=== PATIENT | female | born 1950 | race Two or more races ===

== ENCOUNTER 2020-05-30 15:26 | Outpatient (REF) | payer MEDICARE, SELFPAY ==
--- NOTE | 2020-05-30 | MM_ITS ---
EXAMINATION: MM SCREENING DIGITAL BREAST TOMOSYNTHESIS, BILATERAL CLINICAL INFORMATION: Screening. Asymptomatic. The lifetime risk of breast cancer based on the Tyrer-Cuzick Model is 11%. COMPARISON: Mammography: 04/28/2019, 04/26/2018, 03/12/2017 TECHNIQUE: Digital breast tomosynthesis is performed in both the craniocaudal and mediolateral oblique views along with computer-aided detection (CAD). Synthesized 2D images are generated from the tomosynthesis. FINDINGS: There are scattered areas of fibroglandular density (ACR BI-RADS breast composition Category b). There are no significant masses, abnormal calcifications, or other abnormalities. Fibronodular parenchymal pattern is similar to previous studies. No significant changes. MM/MM tomosynthesis screening BI IMPRESSION: No mammographic evidence of malignancy. ASSESSMENT: BI-RADS 1: Negative RECOMMENDATION: Routine annual mammography screening. This patient's information was entered into a reminder system with a target due date for their next mammogram.
== END 2020-05-30 15:27 | disposition home or self-care (01) ==
LOC: HO.MAMMO 15:26
PROVIDERS: PCP Internal Medicine; Visit Provider Internal Medicine
DX: Z12.31 Encounter for screening mammogram for malignant neoplasm of breast (principal)
CPT/HCPCS: 77063; 77067

== ENCOUNTER 2020-06-21 06:43 | Outpatient (REF) | payer MEDICARE, SELFPAY ==
[2020-06-21 08:25] LABS: Cholesterol 147 mg/dL; HDL Cholesterol 36 mg/dL; LDL Cholesterol Calculated 96 mg/dl; Triglycerides 75 mg/dL
== END 2020-06-21 06:44 | disposition home or self-care (01) ==
LOC: HO.LAB 06:43
PROVIDERS: PCP Internal Medicine; Visit Provider Internal Medicine
DX: I10 Essential (primary) hypertension (principal)
CPT/HCPCS: 80061

== ENCOUNTER → 2020-08-29 13:18 | Outpatient (BNVA) | payer MEDICARE, SELFPAY | PROVIDERS: PCP Internal Medicine; Visit Provider Obstetrics & Gynecology | DX: Z01.419 Encounter for gynecological examination (general) (routine) without abnormal findings (principal); M81.0 Age-related osteoporosis without current pathological fracture | CPT/HCPCS: 99202 ==

== ENCOUNTER → 2020-10-09 14:30 | Outpatient (BNVA) | payer MEDICARE, SELFPAY | PROVIDERS: PCP Internal Medicine; Visit Provider Nurse Practitioner Family ==

== ENCOUNTER 2021-02-18 12:43 | Emergency (ER) | payer MEDICARE, SELFPAY ==
[2021-02-18 12:57] VITALS: BP 114/85; BP 118/91; PULSE 80; PULSE 90; RESP 18; TEMP 36.6; O2SAT 98; BMI 25.7
--- NOTE | 2021-02-18 12:58 | ED.URI ---
HPI - URI/Sore Throat General Chief Complaint: Upper Respiratory Symptoms Stated Complaint: difficulty breathing Time Seen by Provider: 02/18/21 12:57 History of Present Illness HPI Narrative: Patient is 70-year-old female presents today with coughing upper respiratory symptoms. No chest pain no diaphoresis no nausea no vomiting positive congestion. Patient from home. Related Data Previous Rx's Medication Instructions Recorded alendronate 70 mg tablet 70 mg PO QWEEK #12 tab 08/29/20 calcium carbonate 600 mg calcium 1,200 mg PO DAILY #120 tab 08/29/20 (1,500 mg) tablet atorvastatin 10 mg tablet 10 mg PO BEDTIME #90 tab 01/10/21 lisinopril 5 mg tablet 5 mg PO DAILY #90 tab 01/10/21 Allergies Allergy/AdvReac Type Severity Reaction Status Date / Time oxycodone [From PERCOCET] Allergy Unknown ITCHY/RASH Verified 02/18/21 12:57 Review of Systems Review of Systems: Constitutional: No Weight loss, No Fever, No Chills, No Night Sweats, No Fatigue, No Malaise ENT/Mouth: No Hearing loss, No Ear Pain, No Nasal Congestion, No Sinus Pain, No Hoarseness, No sore throat, No Rhinorrhea, No Swallowing Difficulty Eyes: No Eye Pain, No Swelling, No Redness, No Foreign Body, No Discharge, No Vision Changes Cardiovascular: No Chest Pain, No SOB, No Dyspnea on Exertion, No Orthopnea, No Edema, No Palpitations Respiratory: Positive Cough, No Sputum, No Wheezing, No Smoke Exposure, No Dyspnea Gastrointestinal: No Nausea, No Vomiting, No Diarrhea, No Constipation, No abdominal Pain, No Hematochezia, No Melena Genitourinary: no irregular bleeding, No Dysuria, No Urinary Frequency, No Hematuria, No Urinary Incontinence, No Urgency, No Flank Pain, No Urinary Flow Changes, No Hesitancy Musculoskeletal: No joint pain, No Myalgias, No Joint Swelling Skin: No Skin Lesions, No rash Neuro: No Weakness, No Numbness, No Paresthesias, No Loss of Consciousness, No Dizziness, No Headache Psych: No Anxiety/Panic, No Depression, No SI/HI/AH/VH, No Social Issues, Heme/Lymph: No Bruising, No Bleeding,No Lymphadenopathy Endocrine: No Polyuria, No Polydipsia, No Temperature Intolerance PMFSH Past Medical History Medical History Hypertension Osteoporosis Surgical History H/O rectal polypectomy History of breast surgery History of colonoscopy History of surgery Family History Family History Father Colon cancer Mother CVD (cardiovascular disease) Brother Alcoholism Paternal Uncle Stomach cancer Sister Diabetes Kidney failure, acute Social History Social History Household Members: None Housing: Apartment Alcohol intake: never Patient Tobacco Use Status: Former Tobacco user Tobacco use type: Cigarette e-Cigarette/Vaping Use: Never Used Second Hand Smoke Exposure: No Use of substances other than those prescribed or required for medical reasons: No service: No Current occupational status: employed Physical Exam Vital Signs: Vital Signs: Last Vital Signs Temp 97.8 F 02/18/21 12:57 Pulse 80 02/18/21 12:57 Resp 18 02/18/21 12:57 BP 118/91 H 02/18/21 12:57 Pulse Ox 98 02/18/21 12:57 Body Mass Index 25.7 Appearance: Alert. Oriented X3. No acute distress. Eyes: Pupils equal, round and reactive to light. ENT: Pharynx normal. Neck: Normal inspection. Neck supple. No lymph nodes noted. No crepitus CVS: Normal heart rate and rhythm. Pulses normal. Normal S1 and S2 Respiratory: No respiratory distress. Breath sounds normal. No Wheezing. No rales Abdomen: Soft and nontender. No rigidity. No distention. good BS x4 Skin: Skin warm and dry. Normal skin color. Normal skin turgor. Extremities: No lower extremity edema. Neurovascular intact to all extremities. No Lacerations. No Rash Neuro: Oriented X 3. No motor deficit. No sensory deficit. Moving all extermities. No slurred speech MDM - URI/Sore Throat MDM Narrative Medical decision making narrative: Well-appearing not in acute distress. Lungs are clear. O2 sat 98% on room air. Coronavirus test sent. Lab Data Labs: Lab Results 02/18/21 Range/Units 13:01 Coronavirus (PCR) NEGATIVE (Negative) Influenza Type A (PCR) NEGATIVE (Negative) Influenza Type B (PCR) NEGATIVE (Negative) RSV RNA Qual (PCR) NEGATIVE (Negative) Discharge Plan Discharge Clinical Impression: Upper respiratory infection Patient Disposition: Home, Self-Care Instructions: Upper Respiratory Infection (ED), COVID-19 (Coronavirus Disease 2019) (ED) Additional Instructions: Risk of COVID still exists. Please follow strict home quarantine. Prescriptions: No Action atorvastatin 10 mg tablet 10 mg PO BEDTIME Qty: 90 RF: 8 lisinopril 5 mg tablet 5 mg PO DAILY Qty: 90 RF: 8 alendronate 70 mg tablet 70 mg PO QWEEK Qty: 12 RF: 3 calcium carbonate 600 mg calcium (1,500 mg) tablet 1,200 mg PO DAILY Qty: 120 RF: 3 Referrals: Physician,None [Physician] - 2 days
[2021-02-18 13:54] LABS: Influenza A PCR NEGATIVE (Negative); Influenza B PCR NEGATIVE (Negative); Resp Syncy Virus RNA Qual PCR NEGATIVE (Negative); SARS COV2 PCR INHOUSE NEGATIVE (Negative)
[2021-02-18 14:00] VITALS: BP 116/63; PULSE 63; RESP 18; O2SAT 97
== END 2021-02-18 15:29 | disposition home or self-care (01) ==
LOC: HO.ED 14:30
PROVIDERS: Emergency Provider Emergency Medicine Emergency Medical Services; PCP Internal Medicine
DX: J06.9 Acute upper respiratory infection, unspecified (principal); R06.02 Shortness of breath; R05 Cough; Z79.899 Other long term (current) drug therapy; F17.210 Nicotine dependence, cigarettes, uncomplicated; Z71.6 Tobacco abuse counseling; Z20.822 Contact with and (suspected) exposure to COVID-19
CPT/HCPCS: 0241U; 36415; 99283; 99284

== ENCOUNTER 2021-04-01 10:47 | Outpatient (REF) | payer MEDICARE, SELFPAY ==
[2021-04-01 11:49] LABS: MANUAL DIFF FLAG NO
[2021-04-01 11:55] LABS: Basophils Percent Auto 0.5 % (0-2); Eosinophils Absolute Auto 0.1 X10*3/uL (0.0-0.4); Eosinophils Percent Auto 2.2 % (0-4); Hematocrit 44.4 % (37-47); Hemoglobin 14.4 g/dl (12.0-16.0); Imm Gran Abs Auto 0.01 X10*3/uL (0.00-0.03); Imm Gran Pct Auto 0.2 % (0.0-0.4); Lymphocytes Absolute Auto 1.5 X10*3/uL (1.2-4.9); Lymphocytes Percent Auto 26.3 % (20-40); Mean Corpuscular HGB Conc 32.4 g/dl (31.0-35.0); Mean Corpuscular Hemoglobin 31.1 pg (27.0-33.0); Mean Corpuscular Volume 95.9 fL (80-98); Mean Platelet Volume 10.8 fL (9.4-12.3); Monocytes Absolute Auto 0.5 X10*3/uL (0.1-1.2); Monocytes Percent Auto 8.7 % (2-11); Neutrophils Absolute Auto 3.4 X10*3/uL (2.0-8.3); Neutrophils Percent Auto 62.1 % (45-73); Platelet Count 275 X10*3/uL (160-400); Red Blood Count 4.63 X10*6/uL (4.20-5.50); Red Cell Distribution Width 12.3 % (11.0-16.0); White Blood Count 5.5 X10*3/uL (4.8-10.8)
[2021-04-01 14:11] LABS: Alanine Aminotransferase 21 U/L (0-31); Albumin Level 4.1 g/dL (3.5-5.0); Alkaline Phosphatase 83 U/L (39-117); Anion Gap 11 (12-20); Aspartate Amino Transferase 23 U/L (5-31); Bilirubin Total 0.6 mg/dL (0.0-1.0); Blood Urea Nitrogen 10 mg/dL (9-16); Calcium 9.7 mg/dL (8.4-10.2); Carbon Dioxide 28 mmol/L (22-29); Chloride 104 mmol/L (96-108); Cholesterol 152 mg/dL; Estimated Glomerular Filt Rate > 60; Glucose Fasting 129 mg/dL (60-99); HDL Cholesterol 30 mg/dL; LDL Cholesterol Calculated 99 mg/dl; Potassium 4.7 mmol/L (3.3-5.1); Sodium 138 mmol/L (135-145); Triglycerides 119 mg/dL
[2021-04-01 14:34] LABS: Thyroid Stimulating Hormone 1.31 uIU/mL (0.32-4.0)
== END 2021-04-01 10:48 | disposition home or self-care (01) ==
LOC: HO.LAB 10:47
PROVIDERS: PCP Internal Medicine; Visit Provider Internal Medicine
DX: Z00.00 Encounter for general adult medical examination without abnormal findings (principal); E11.9 Type 2 diabetes mellitus without complications; E03.9 Hypothyroidism, unspecified
CPT/HCPCS: 36415; 80053; 80061; 84443; 85025

== ENCOUNTER 2021-06-05 06:40 | Outpatient (REF) | payer MEDICARE, SELFPAY ==
[2021-06-05 07:45] LABS: Cholesterol 139 mg/dL; HDL Cholesterol 29 mg/dL; LDL Cholesterol Calculated 86 mg/dl; Triglycerides 120 mg/dL
== END 2021-06-05 06:41 | disposition home or self-care (01) ==
LOC: HO.LAB 06:40
PROVIDERS: PCP Internal Medicine; Visit Provider Internal Medicine
DX: E11.9 Type 2 diabetes mellitus without complications (principal)
CPT/HCPCS: 36415; 80061

== ENCOUNTER 2021-08-07 13:11 | Outpatient (REF) | payer MEDICARE, SELFPAY ==
--- NOTE | ~2021-08-07 | MM_ITS ---
EXAMINATION: BONE DENSITOMETRY CLINICAL INDICATION: Asymptomatic menopausal state. COMPARISON: Baseline BD dated 04/28/2019. TECHNIQUE: Using a [employer] DXA System (software version: 13.1) manufactured by [employer], dual-energy x-ray absorptiometry was performed of the lumbar spine and left hip. The images are of good technical quality. Summary results are attached. FINDINGS: AP SPINE L1-L2 (excluding L3 and L4): The data of L1-L4 has been changed to exclude the L3 and L4 vertebral bodies, because degenerative sclerosis at these levels may cause overestimation of lumbar spine density. Current: BMD 0.786 g/cm2, Z-score -1.4, T-score -3.2, osteoporosis, 9.5% increase from baseline (<5% change is not significant). Baseline: BMD 0.718 g/cm2. LEFT FEMUR, NECK: Current: BMD 0.696 g/cm2, Z-score -0.8, T-score -2.5, osteoporosis. Baseline: BMD 0.648 g/cm2. LEFT FEMUR, TOTAL: Current: BMD 0.779 g/cm2, Z-score -0.4, T-score -1.8, osteopenia, 13.2% increase from baseline (<5% change is not significant). Baseline: BMD 0.688 g/cm2. IDENTIFIED RISK FACTORS: Early menopause, secondary osteoporosis. HISTORY OF FRACTURE: None listed. MEDICATIONS: Calcium supplements or multivitamin, vitamin D. MM/XR DEXA axial skeleton IMPRESSION: 1. DIAGNOSIS: Osteoporosis based on the lowest T-score value of -3.2 in the lumbar spine applying World Health Organization criteria. 2. 10-YEAR FRACTURE RISK PREDICTION, FRAX: Major osteoporotic fracture (clinical spine, forearm, hip or shoulder) 8.1%. Hip fracture 1.9%. 3. Treatment Recommendations: NOF guidelines recommend consideration for treatment in postmenopausal women and men age 50 and older presenting with the following: -A hip or vertebral (clinical or morphometric) fracture. -T-score less than or equal to -2.5 at the femoral neck or spine after appropriate evaluation to exclude secondary causes. -Low bone mass at the hip or spine and a 10-year fracture probability by FRAX of greater than or equal to 3% for hip fracture or greater than or equal to 20% for major osteoporotic fracture based on the [place] adapted WHO algorithm. 4. Other Recommendations: All treatment decisions require clinical judgment and consideration of individual patient factors, including patient preferences, comorbidities, previous drug use, risk factors not captured in the FRAX model (e.g. frailty, falls, vitamin D deficiency, increased bone turnover, interval significant decline in bone density) and possible under or overestimation of fracture risk by FRAX. Additional medical evaluation for secondary cause of low bone mineral density may be appropriate. FUTURE SCAN RECOMMENDATION: People with diagnosed cases of osteoporosis or at high risk for fracture should have regular bone mineral density tests. For patients eligible for Medicare, routine testing is allowed once every 2 years. The testing frequency can be increased to one year for patients who have rapidly progressing disease, those who are receiving or discontinuing medical therapy to restore bone mass, or have additional risk factors.
--- NOTE | ~2021-08-07 | MM_ITS ---
EXAMINATION: MM SCREENING DIGITAL BREAST TOMOSYNTHESIS, BILATERAL CLINICAL INFORMATION: Screening. Asymptomatic. The lifetime risk of breast cancer based on the Tyrer-Cuzick Model is 4%. COMPARISON: Mammography: 05/30/2020, 04/28/2019, 04/26/2018 TECHNIQUE: Digital breast tomosynthesis is performed in both the craniocaudal and mediolateral oblique views along with computer-aided detection (CAD). Synthesized 2D images are generated from the tomosynthesis. FINDINGS: There are scattered areas of fibroglandular density (ACR BI-RADS breast composition Category b). There are no significant masses, abnormal calcifications, or other abnormalities. Fibronodular parenchymal pattern is similar to prior exams. There is no developing density or interval mass or architectural abnormality. The axilla and skin contours are unremarkable. No significant changes from prior studies. MM/MM tomosynthesis screening BI IMPRESSION: No mammographic evidence of malignancy. ASSESSMENT: BI-RADS 2: Benign RECOMMENDATION: Routine annual mammography screening. This patient's information was entered into a reminder system with a target due date for their next mammogram.
== END 2021-08-07 13:12 | disposition home or self-care (01) ==
LOC: HO.MAMMO 13:11
PROVIDERS: Visit Provider Internal Medicine
DX: Z12.31 Encounter for screening mammogram for malignant neoplasm of breast (principal); Z13.820 Encounter for screening for osteoporosis; Z78.0 Asymptomatic menopausal state
CPT/HCPCS: 77063; 77067; 77080

== ENCOUNTER 2021-08-15 09:19 | Emergency (ER) | payer MEDICARE, SELFPAY ==
--- NOTE | ~2021-08-15 | XR_ITS ---
EXAMINATION: XR KNEE, LEFT CLINICAL INFORMATION: Pain COMPARISON: None TECHNIQUE: Four views of the left knee. FINDINGS: There is no evidence of acute fracture or dislocation of the left knee. No effusion is noted. There are some subcutaneous calcifications present anterior and superior to the patella. No joint space narrowing is seen. There is either post traumatic change involving the proximal left fibula versus possible osteochondroma. There appears be some subcutaneous edema at and below the tibial tubercle. XR/XR knee LT 4V IMPRESSION: No significant bony abnormality of the left knee identified. Either posttraumatic change of the proximal fibula versus possible osteochondroma. Some subcutaneous edematous change about the anterior tibia.
[2021-08-15 09:19] VITALS: BP 131/87; PULSE 2; RESP 18; TEMP 36; O2SAT 95; BMI 25.2
--- NOTE | 2021-08-15 10:28 | ED_ITS ---
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 Patient denies any injury or trauma. Pain is worsened with weight-bearing. There is no associated weakness, numbness, tingling, swelling, redness or warmth. No fevers or chills. Related Data Previous Rx's Medication Instructions Recorded alendronate 70 mg tablet 70 mg PO QWEEK #12 tab 08/29/20 calcium carbonate 600 mg calcium 1,200 mg PO DAILY #120 tab 08/29/20 (1,500 mg) tablet atorvastatin 10 mg tablet 10 mg PO BEDTIME #90 tab 05/06/21 lisinopril 5 mg tablet 5 mg PO DAILY #90 tab 05/13/21 naproxen 500 mg tablet 500 mg PO BID PRN #20 tab 08/15/21 Allergies Allergy/AdvReac Type Severity Reaction Status Date / Time oxycodone [From Allergy Unknown ITCHY/RASH Verified 06/12/21 15:14 PERCOCET] Review of Systems Verdana 4l Review of Systems: Yes all other systems are reviewed and Verdana 4d are negative Verdana 4l Constitutional: Verdana 4d Constitutional: Verdana 4d Verdana 4d Reports no additional constitutional complaints, Denies body ache(s), Denies chills, Denies fever(s), Denies headache(s) and Denies weakness Verdana 4l Eyes: Verdana 4d Verdana 4d Eyes: Verdana 4d Reports no additional eye complaints and Denies change in vision Verdana 4l ENT: Verdana 4d Reports system reviewed and no additional complaints, except as documented, Denies dizziness, Denies headache(s), Denies nasal congestion, Denies nasal discharge and Denies neck pain Verdana 4l Cardiovascular: Verdana 4d Cardiovascular: Verdana 4d Verdana 4d Reports no additional cardiovascular complaints, Denies chest pain, Denies leg edema and Denies dyspnea Verdana 4l Respiratory: Verdana 4d Verdana 4d Respiratory: Verdana 4d Reports no additional respiratory complaints, Denies cough and Denies dyspnea Verdana 4l Gastrointestinal: Verdana 4d Gastrointestinal: Verdana 4d Verdana 4d Reports no additional gastrointestinal complaints, Denies abdominal pain, Denies diarrhea, Denies nausea and Denies vomiting Verdana 4l Genitourinary: Verdana 4d Verdana 4d Genitourinary: Verdana 4d Reports no additional female genitourinary complaints and Denies urinary incontinence Verdana 4l Musculoskeletal: Verdana 4d Musculoskeletal: Verdana 4d Verdana 4d Reports no additional musculoskeletal complaints, Denies back pain, Reports arthralgias, Denies joint swelling, Denies neck pain, Denies numbness and Denies tingling Verdana 4l Integumentary/Breasts: Verdana 4d Skin/Breast: Verdana 4d Verdana 4d Reports system reviewed and no additional complaints, except as docu and Denies rash Verdana 4l Neurologic: Verdana 4d Reports system reviewed and no additional complaints, except as documented, Denies Abnormal speech present, Denies dizziness, Denies headache(s), Denies numbness, Denies tingling and Denies weakness PMFSH Past Medical History Attestation statement: The following information was validated with the patient. Source: old records reviewed and nursing notes reviewed Medical History Hyperlipidemia Hypertension Osteoporosis Surgical History H/O rectal polypectomy History of breast surgery History of colonoscopy History of surgery Family History Family History Father Colon cancer Mother CVD (cardiovascular disease) Brother Alcoholism Paternal Uncle Stomach cancer Sister Diabetes Kidney failure, acute Social History Social History Household Members: None Housing: Apartment Alcohol intake: never Patient Tobacco Use Status: Former Tobacco user Tobacco use type: Cigarette e-Cigarette/Vaping Use: Never Used Second Hand Smoke Exposure: No Advance Directives: No Advance Directives Information Provided: No service: No Current occupational status: employed Physical Exam Verdana 4l Vital Signs: Verdana 4d Verdana 4d Vital Signs: Verdana 4d Verdana 4Bd Last Vital Signs Verdana 4d 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 4d 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 4d Temp 96.8 F 08/15/21 09:19 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 4d Pulse 2 L 08/15/21 09:19 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 4d Resp 18 08/15/21 09:19 BP 131/87 08/15/21 09:19 Pulse Ox 95 08/15/21 09:19 BMI result Body Mass Index 25.2 Const: General: cooperative, healthy appearing, comfortable and no acute distress Orientation/consciousness: patient oriented x3 Limitations: no limitations HENMT: Head: Yes normal to inspection Ears: hearing grossly normal bilaterally General nose exam: Normal external nose present Face and sinus: Yes normal facial exam Mouth: Normal oral and palatal mucosa present Throat: Yes posterior oropharynx normal Eyes: General: appearance normal, both eyes and all related structures Pupils: Equal, round and reactive pupils present Neck: Neck: Yes normal visual inspection Chest: Chest palpation & inspection: normal inspection of the chest Resp: Effort & Inspection: normal respiratory effort Auscultation: clear to auscultation bilaterally Cardio: Rate: regular rate Rhythm: regular rhythm Peripheral pulses: Peripheral pulses 2+ throughout GI: Inspection: Yes normal to inspection Palpation (GI): Soft to palpation and nontender Auscultation: normal bowel sounds Back/Spine/Pelvis: Thoracic/Lumbar Spine: thoracic and lumbar spine normal to inspection Skin: General skin exam: no rashes or lesions noted Neuro: General: patient oriented x3, no focal motor deficits and normal sensation to monofilament Cranial nerves: Yes Equal, round and reactive pupils present Cognition (Neuro): normal cognition Speech: No Abnormal speech present Gait exam (Neuro): Normal gait present Motor exam (neuro): 5/5 motor strength present throughout Extrem: Other: To the left anterior knee there is swelling that is mild with tenderness over the anterior medial aspect. There is full range of motion of the joint. There is no ligamental laxity. There is no warmth or redness. General: Yes normal to inspection Course Course Course Narrative: 70-year-old female here with atraumatic left knee pain over the last 2 weeks. On exam the patient has some mild swelling and tenderness over the anterior medial aspect of the knee with full range of motion and the ligamental laxity or redness or warmth. X-ray show no significant bony abnormality. There is either posttraumatic changes of the proximal fibula versus a osteochondroma. There is some subcu edema around the anterior tibia. There is also some calcifications present in the anterior and superior patella. Will treat with Rahat wrap, rice, low-dose NSAID, follow-up with Orthopedics in 1 week for persistent symptoms. Reviewed worrisome signs and symptoms of when to return to the emergency department. Comfortable discharge home. MDM - Extremity Injury (Lower) MDM Narrative Medical decision making narrative: Osteoarthritis, fracture, sprain, septic joint Medical Records Attestation: I reviewed the patient's medical records. Lab Data Attestation: I reviewed the patient's lab results. Imaging Data knee x-ray: Attestation: I personally reviewed and interpreted this imaging study as follows: Radiologist's impression: FINDINGS: There is no evidence of acute fracture or dislocation of the left knee. No effusion is noted. There are some subcutaneous calcifications present anterior and superior to the patella. No joint space narrowing is seen. There is either post traumatic change involving the proximal left fibula versus possible osteochondroma. There appears be some subcutaneous edema at and below the tibial tubercle. XR/XR knee LT 4V IMPRESSION: No significant bony abnormality of the left knee identified. ? Either posttraumatic change of the proximal fibula versus possible osteochondroma. ? Some subcutaneous edematous change about the anterior tibia. ? Discharge Plan Discharge Clinical Impression: Acute knee pain Patient Disposition: Home, Self-Care Instructions: Knee Pain (ED) Additional Instructions: Use Rahat wrap for comfort Rest, Ice, elevate and limit weight-bearing for several days Use the anti-inflammatory to help with pain For persistent pain greater than 1 week follow-up with Orthopedics Prescriptions: New naproxen 500 mg tablet 500 mg PO BID PRN (Reason: pain) Qty: 20 0RF No Action atorvastatin 10 mg tablet 10 mg PO BEDTIME Qty: 90 8RF lisinopril 5 mg tablet 5 mg PO DAILY Qty: 90 8RF alendronate 70 mg tablet 70 mg PO QWEEK Qty: 12 3RF calcium carbonate 600 mg calcium (1,500 mg) tablet 1,200 mg PO DAILY Qty: 120 3RF Referrals: Jeff Galvan MD [Physician] - 1 week Stand Alone Forms: Work/School Release
== END 2021-08-15 11:04 | disposition home or self-care (01) ==
PROVIDERS: Emergency Provider Emergency Medicine; PCP Internal Medicine
DX: M25.562 Pain in left knee (principal)
CPT/HCPCS: 73564; 99283

== ENCOUNTER → 2021-09-03 13:15 | Outpatient (BNVA) | payer MEDICARE, SELFPAY | PROVIDERS: Visit Provider Obstetrics & Gynecology | DX: Z13.89 Encounter for screening for other disorder (principal) ==

== ENCOUNTER 2022-05-26 07:41 | Outpatient (REF) | payer MEDICARE, SELFPAY ==
[2022-05-26 08:00] LABS: MANUAL DIFF FLAG NO
[2022-05-26 08:35] LABS: Basophils Percent Auto 0.7 % (0-2); Eosinophils Absolute Auto 0.2 X10*3/uL (0.0-0.4); Eosinophils Percent Auto 3.2 % (0-4); Hematocrit 44.4 % (37.0-47.0); Hemoglobin 14.6 g/dl (12.0-16.0); Imm Gran Abs Auto 0.01 X10*3/uL (0.00-0.03); Imm Gran Pct Auto 0.2 % (0.0-0.4); Lymphocytes Absolute Auto 1.4 X10*3/uL (1.2-4.9); Lymphocytes Percent Auto 22.7 % (20-40); Mean Corpuscular HGB Conc 32.9 g/dl (31.0-35.0); Mean Corpuscular Hemoglobin 31.2 pg (27.0-33.0); Mean Corpuscular Volume 94.9 fL (80.0-98.0); Mean Platelet Volume 10.5 fL (9.4-12.3); Monocytes Absolute Auto 0.5 X10*3/uL (0.1-1.2); Monocytes Percent Auto 8.8 % (2-11); Neutrophils Absolute Auto 3.9 x10*3/uL (2.0-8.3); Neutrophils Percent Auto 64.4 % (45-73); Platelet Count 282 X10*3/uL (160-400); Red Blood Count 4.68 X10*6/uL (4.20-5.50); Red Cell Distribution Width 12.2 % (11.0-16.0)
[2022-05-26 10:13] LABS: Alanine Aminotransferase 32 U/L (0-31); Albumin Level 4.3 g/dL (3.5-5.0); Alkaline Phosphatase 92 U/L (39-117); Anion Gap 12 (12-20); Aspartate Amino Transferase 30 U/L (5-31); Bilirubin Total 0.9 mg/dL (0.0-1.0); Blood Urea Nitrogen 12 mg/dL (9-16); Calcium 10.1 mg/dL (8.4-10.2); Carbon Dioxide 28 mmol/L (22-29); Chloride 105 mmol/L (96-108); Cholesterol 121 mg/dL; Estimated Glomerular Filt Rate > 60; Glucose Fasting 135 mg/dL (60-99); HDL Cholesterol 28 mg/dL; LDL Cholesterol Calculated 77 mg/dl; Potassium 5.1 mmol/L (3.3-5.1); Sodium 140 mmol/L (135-145); Total Protein 7.3 g/dL (6.5-8.0); Triglycerides 82 mg/dL
== END 2022-05-26 07:42 | disposition home or self-care (01) ==
LOC: HO.LAB 07:41
PROVIDERS: PCP Internal Medicine; Visit Provider Internal Medicine
DX: Z13.0 Encounter for screening for diseases of the blood and blood-forming organs and certain disorders involving the immune mechanism (principal); E78.5 Hyperlipidemia, unspecified; I10 Essential (primary) hypertension
CPT/HCPCS: 36415; 80053; 80061; 85025

== ENCOUNTER 2022-06-19 10:20 | Outpatient (REF) | payer MEDICARE, SELFPAY ==
--- NOTE | ~2022-06-19 | XR_ITS ---
EXAMINATION: XR FOOT, LEFT CLINICAL INFORMATION: Pain COMPARISON: None TECHNIQUE: AP, lateral, and oblique views of the left foot. FINDINGS: No fracture or dislocation. Alignment maintained. Joint spaces are maintained. Mild hammertoe appearance of the second digit. Mild hallux valgus. Soft tissue swelling overlies the medial aspect of the forefoot. There is mild hypertrophic spurring at the plantar aponeurosis to the calcaneus. XR/XR foot LT 2V IMPRESSION: Soft tissue swelling of the medial forefoot. No acute osseous abnormality. Plantar heel spur.
== END 2022-06-19 10:21 | disposition home or self-care (01) ==
LOC: HO.XRAY 10:20
PROVIDERS: PCP Internal Medicine; Visit Provider Internal Medicine
DX: M79.672 Pain in left foot (principal)
CPT/HCPCS: 73620

== ENCOUNTER 2022-08-11 12:55 | Outpatient (REF) | payer MEDICARE, SELFPAY ==
--- NOTE | ~2022-08-11 | MM_ITS ---
EXAMINATION: MM SCREENING DIGITAL BREAST TOMOSYNTHESIS, BILATERAL CLINICAL INFORMATION: Screening. Asymptomatic. The lifetime risk of breast cancer based on the Tyrer-Cuzick Model is 4%. COMPARISON: Mammography: 08/07/2021, 05/30/2020, 04/28/2019 TECHNIQUE: Digital breast tomosynthesis is performed in both the craniocaudal and mediolateral oblique views along with computer-aided detection (CAD). Synthesized 2D images are generated from the tomosynthesis. FINDINGS: There are scattered areas of fibroglandular density (ACR BI-RADS breast composition Category b). No architectural abnormality or developing density or significant change from prior studies. Fibronodular pattern is similar to prior studies. There are no significant masses, abnormal calcifications, or other abnormalities. MM/MM tomosynthesis screening BI IMPRESSION: No mammographic evidence of malignancy. ASSESSMENT: BI-RADS 2: Benign RECOMMENDATION: Routine annual mammography screening. This patient's information was entered into a reminder system with a target due date for their next mammogram.
== END 2022-08-11 12:56 | disposition home or self-care (01) ==
LOC: HO.MAMMO 12:55
PROVIDERS: PCP Internal Medicine; Visit Provider Internal Medicine
DX: Z12.31 Encounter for screening mammogram for malignant neoplasm of breast (principal)
CPT/HCPCS: 77063; 77067

== ENCOUNTER 2022-10-20 15:06 | Emergency (ER) | payer MEDICARE, SELFPAY ==
--- NOTE | ~2022-10-20 | CT_ITS ---
EXAMINATION: CT ABDOMEN AND PELVIS WITHOUT CONTRAST CLINICAL INFORMATION: Lower abdominal pain and hematuria COMPARISON: None available. TECHNIQUE: Multidetector volumetric imaging was performed from the superior aspect of the liver through the pubic symphysis. Sagittal and coronal reformatted images were obtained on the technologist's workstation. This CT examination was performed using dose optimization techniques as appropriate, variously including the following: *Automated exposure control *Adjustment of mA and/or kV according to patient size (this includes techniques or standardized protocols for targeted exams where dose is matched to indication/reason for exam; i.e. extremities or head) *Use of iterative reconstruction technique DLP: 418 mGy-cm FINDINGS: LUNG BASES: The visualized lung bases are unremarkable. LIVER, GALLBLADDER, AND BILIARY TREE: The liver is normal in size, shape, and attenuation. No focal hepatic lesion or biliary ductal dilatation is present. The gallbladder is unremarkable with no evidence of radiopaque gallstones, gallbladder wall thickening, or obvious pericholecystic inflammatory changes. PANCREAS: Unremarkable. SPLEEN: Unremarkable. ADRENAL GLANDS: Unremarkable. KIDNEYS AND URETERS: The kidneys are normal in size, shape, and attenuation. No hydronephrosis, hydroureter, or calculi seen. No perinephric stranding. BLADDER: There are small calcifications in the pelvis adjacent to the bladder wall. No definite stone is seen. GASTROINTESTINAL TRACT: Stool throughout the colon questionable for constipation. The small and large bowel are otherwise unremarkable. The appendix is unremarkable. ABDOMINAL WALL: Small umbilical hernia. LYMPH NODES: Normal. VASCULAR: Atherosclerotic disease. No aneurysm. PELVIC VISCERA: Unremarkable. OSSEOUS STRUCTURES: There is curvature of the lumbar spine to the left and degenerative change. CT/CT abdomen pelvis wo IV con IMPRESSION: No stone or hydronephrosis seen. Stool throughout the colon questionable for constipation. Fleischner guidelines were followed.
[2022-10-20 15:23] VITALS: BP 146/81; PULSE 84; RESP 14; TEMP 36.9; O2SAT 96; BMI 20.6
--- NOTE | 2022-10-20 15:30 | ED_ITS ---
HPI - Female Genitourinary General Chief complaint: Urogenital-Female <SHAY Calabrese - Last Filed: 10/20/22 20:40> Stated complaint: ? uti <SHAY Calabrese - Last Filed: 10/20/22 20:40> Time Seen by Provider: 10/20/22 17:44 <HSAY Calabrese - Last Filed: 10/20/22 20:40> Source: patient, RN notes reviewed, old records reviewed and japanese interpreter <William Leija - Last Filed: 10/20/22 18:08> Mode of arrival: ambulatory <William Leija - Last Filed: 10/20/22 18:08> Limitations: language barrier <William Leija - Last Filed: 10/20/22 18:08> History of Present Illness HPI Narrative: 71-year-old female of burning with urination She reports that her symptoms started 2 days ago. She also complains of left flank pain and urinary frequency Denies any fevers or chills. Her pain is mild, 10/20 She also noticed some blood within her urine <William Leija - Last Filed: 10/20/22 18:08> Related Data Home medications: Previous Rx's Medication Instructions Recorded alendronate 70 mg tablet 70 mg PO QWEEK #12 tabs 10/16/22 atorvastatin 10 mg tablet 10 mg PO BEDTIME #90 tabs 10/16/22 calcium carbonate 600 mg calcium 1,200 mg PO DAILY #120 tabs 10/16/22 (1,500 mg) tablet lisinopril 5 mg tablet 5 mg PO DAILY #90 tabs 10/16/22 naproxen 500 mg tablet 500 mg PO BID PRN pain #20 tabs 10/16/22 nitrofurantoin 100 mg PO Q12H 3 days #6 caps 10/20/22 monohydrate/macrocrystals 100 mg capsule (Macrobid) <SHAY Calabrese - Last Filed: 10/20/22 20:40> Allergies/Adverse reactions: Allergies Allergy/AdvReac Type Severity Reaction Status Date / Time oxycodone [From PERCOCET] Allergy Unknown ITCHY/RASH Verified 10/16/22 14:10 <SHAY Calabrese - Last Filed: 10/20/22 20:40> Review of Systems Constitutional: Constitutional: Reports as per HPI, Denies chills, Denies fatigue, Denies fever(s) and Denies headache(s) <William Leija - Last Filed: 10/20/22 18:08> ENT: Denies headache(s) <William Leija - Last Filed: 10/20/22 18:08> Cardiovascular: Cardiovascular: Denies chest pain and Denies dyspnea <William Leija - Last Filed: 10/20/22 18:08> Respiratory: Respiratory: Denies cough and Denies dyspnea <William Leija - Last Filed: 10/20/22 18:08> Gastrointestinal: Gastrointestinal: Denies constipation and Denies vomiting <William Leija - Last Filed: 10/20/22 18:08> Neurologic: Denies headache(s) and Denies focal weakness <William Leija - Last Filed: 10/20/22 18:08> Endocrine: Endocrine: Denies fatigue <William Leija - Last Filed: 10/20/22 18:08> FOR[facility], LATER [facility] Past Medical History Medical History: Medical History Hyperlipidemia Hypertension Osteoporosis <SHAY Calabrese - Last Filed: 10/20/22 20:40> Surgical History: Surgical History H/O rectal polypectomy History of breast surgery History of colonoscopy History of surgery <SHAY Calabrese - Last Filed: 10/20/22 20:40> Family History Family History: Family History Father Colon cancer Mother CVD (cardiovascular disease) Brother Alcoholism Paternal Uncle Stomach cancer Sister Diabetes Kidney failure, acute <SHAY Calabrese - Last Filed: 10/20/22 20:40> Social History Social History: Social History Household Members: None Housing: Apartment Alcohol intake: never Patient Tobacco Use Status: Former Tobacco user Tobacco use type: Cigarette Smoked in Last 30 Days: No e-Cigarette/Vaping Use: Never Used Second Hand Smoke Exposure: No Use of substances other than those prescribed or required for medical reasons: No Advance Directives: No Advance Directives Information Provided: No service: No Current occupational status: employed Current occupational exposures/hazards: No Cognitive needs: No Hearing needs: No Vision needs: Yes <SHAY Calabrese - Last Filed: 10/20/22 20:40> Physical Exam Vital Signs: Vital Signs: Last Vital Signs Temp 97.0 F 10/20/22 17:56 Pulse 65 10/20/22 17:56 Resp 16 10/20/22 17:56 BP 131/70 10/20/22 17:56 Pulse Ox 97 10/20/22 17:56 O2 Del Method Room Air 10/20/22 17:56 BMI result Body Mass Index 20.6 <SHAY Calabrese - Last Filed: 10/20/22 20:40> Vital Signs: Last Vital Signs Temp 97.0 F 10/20/22 17:56 Pulse 65 10/20/22 17:56 Resp 16 10/20/22 17:56 BP 131/70 10/20/22 17:56 Pulse Ox 97 10/20/22 17:56 O2 Del Method Room Air 10/20/22 17:56 BMI result Body Mass Index 20.6 <William Leija - Last Filed: 10/20/22 18:08> Const: General: healthy appearing, comfortable, no acute distress, alert and awake <William Leija - Last Filed: 10/20/22 18:08> Nutritional Appearance: well nourished <William Leija - Last Filed: 10/20/22 18:08> Orientation/consciousness: patient oriented x3 <William Leija - Last Filed: 10/20/22 18:08> HEENT: Head: Yes normocephalic and Yes atraumatic <William Leija - Last Filed: 10/20/22 18:08> Throat: Yes posterior oropharynx normal <William Leija - Last Filed: 10/20/22 18:08> Eyes: Eyelids: Yes eyelids normal <William Leija - Last Filed: 10/20/22 18:08> Conjunctivae: conjunctivae normal <William Leija - Last Filed: 10/20/22 18:08> Sclerae: sclerae normal < - Last Filed: 10/20/22 18:08> Corneas: corneas normal < Last Filed: 10/20/22 18:08> Pupils: Equal, round and reactive pupils present < Last Filed: 10/20/22 18:08> EOM: EOMs intact bilaterally < Last Filed: 10/20/22 18:08> Neck: Neck: Yes full ROM < Last Filed: 10/20/22 18:08> Resp: Effort & Inspection: normal respiratory effort, able to speak in complete sentences, no audible wheezes and not labored < Last Filed: 10/20/22 18:08> Auscultation: clear to auscultation bilaterally < Last Filed: 10/20/22 18:08> Cardio: Rate: regular rate < Last Filed: 10/20/22 18:08> Rhythm: regular rhythm < Last Filed: 10/20/22 18:08> GI: Inspection: No distended < Last Filed: 10/20/22 18:08> Palpation (GI): Soft to palpation, not firm, nontender, no guarding and not rigid < - Last Filed: 10/20/22 18:08> Auscultation: normoactive bowel sounds < Last Filed: 10/20/22 18:08> : General: Yes no CVA tenderness < - Last Filed: 10/20/22 18:08> Back/Spine/Pelvis: Back: no CVA tenderness < Last Filed: 10/20/22 18:08> Skin: General skin exam: no rashes or lesions noted and elasticity normal < - Last Filed: 10/20/22 18:08> Neuro: General: patient oriented x3 < - Last Filed: 10/20/22 18:08> Cranial nerves: Yes Equal, round and reactive pupils present and Yes Bilaterally intact EOM present <William Leija - Last Filed: 10/20/22 18:08> Cognition (Neuro): normal cognition <William Leija - Last Filed: 10/20/22 18:08> Course Course Course Narrative: RMEL 71 yold female presents to the ED for slight hematuria and lower back pain. labs, and Abdominal CT scan ordered <SHAY Calabrese - Last Filed: 10/20/22 20:40> Medical Decision Making Medical Decision Making MDM Narrative: 71-year-old female for evaluation of clinical UTI symptoms. Labs are unre markable and CT abdomen and pelvis does not show any significant findings except for constipation. UA has numerous white cels with leukocyte esterase and red cells. Consistent with UTI. We will treat with macrobid BID x 5 days. Patient instructed to follow up with urology if her symptoms do not resolve after antibiotic therapy <William Leija - Last Filed: 10/20/22 18:08> Differential Diagnosis UTI Cystitis Obstructive uropathy Pyelnophritis Bladder mass <William Leija - Last Filed: 10/20/22 18:08> Lab Data Result Diagrams: 10/20/22 15:39 10/20/22 15:39 <SHAY Calabrese - Last Filed: 10/20/22 20:40> Labs: Lab Results 10/20/22 10/20/22 10/20/22 Range/Units 15:39 15:39 15:42 WBC 7.4 (4.8-10.8) X10*3/uL RBC 4.59 (4.20-5.50) X10*6/uL Hgb 14.4 (12.0-16.0) g/dl Hct 43.5 (37.0-47.0) % MCV 94.8 (80.0-98.0) fL MCH 31.4 (27.0-33.0) pg MCHC 33.1 (31.0-35.0) g/dl RDW 12.4 (11.0-16.0) % Plt Count 287 (160-400) X10*3/uL MPV 10.4 (9.4-12.3) fL Immature Gran % (Auto) 0.3 (0.0-0.4) % Neut % (Auto) 63.7 (45-73) % Lymph % (Auto) 25.1 (20-40) % [place] % (Auto) 8.4 (2-11) % Eos % (Auto) 2.0 (0-4) % Baso % (Auto) 0.5 (0-2) % Lymph # (Auto) 1.9 (1.2-4.9) X10*3/uL [place] # (Auto) 0.6 (0.1-1.2) X10*3/uL Eos # (Auto) 0.2 (0.0-0.4) X10*3/uL Baso # (Auto) 0.0 (0.0-0.2) X10*3/uL Abs Immat Gran (auto) 0.02 (0.00-0.03) X10*3/uL Absolute Neuts (auto) 4.7 (2.0-8.3) x10*3/uL Absolute Nucleated RBC 0.000 (0.0-0.012) X10*3/uL Nucleated RBC % (auto) 0.0 (0.0-0.2) /100WBC Sodium 142 (135-145) mmol/L Potassium 4.8 (3.3-5.1) mmol/L Chloride 106 (96-108) mmol/L Carbon Dioxide 29 (22-29) mmol/L Anion Gap 12 (12-20) BUN 10 (9-16) mg/dL Creatinine 0.77 (0.5-1.4) mg/dL Estim Creat Clear Calc 54.5 Estimated GFR > 60 Random Glucose 140 H (60-115) mg/dL Calcium 9.7 (8.4-10.2) mg/dL Total Bilirubin 0.5 (0.0-1.0) mg/dL AST 26 (5-31) U/L ALT 25 (0-31) U/L Alkaline Phosphatase 99 (39-117) U/L Total Protein 7.2 (6.5-8.0) g/dL Albumin 4.2 (3.5-5.0) g/dL Urine Color Yellow Urine Appearance Clear Urine pH 7.0 (5.0-9.0) Ur Specific [place] <= 1.005 (1.005-1.025) Urine Protein Negative (Neg-Trace) mg/dL Urine Glucose (UA) Negative (Negative) mg/dL Urine Ketones Negative (Negative) mg/dL Urine Blood Large (3+) H (Negative) Urine Nitrite Negative (Negative) Ur Leukocyte Esterase Moderate (2+) H (Negative) Urine RBC >20 H (0-2) /HPF Urine WBC 11-20 H (0-5) /HPF Ur Squamous Epith Cells 0-2 (0-2) /HPF Urine Bacteria None Seen (None Seen) Hyaline Casts 0-2 (0-2) /LPF <SHAY Calabrese - Last Filed: 10/20/22 20:40> Lab Results 10/20/22 10/20/22 10/20/22 Range/Units 15:39 15:39 15:42 WBC 7.4 (4.8-10.8) X10*3/uL RBC 4.59 (4.20-5.50) X10*6/uL Hgb 14.4 (12.0-16.0) g/dl Hct 43.5 (37.0-47.0) % MCV 94.8 (80.0-98.0) fL MCH 31.4 (27.0-33.0) pg MCHC 33.1 (31.0-35.0) g/dl RDW 12.4 (11.0-16.0) % Plt Count 287 (160-400) X10*3/uL MPV 10.4 (9.4-12.3) fL Immature Gran % (Auto) 0.3 (0.0-0.4) % Neut % (Auto) 63.7 (45-73) % Lymph % (Auto) 25.1 (20-40) % [place] % (Auto) 8.4 (2-11) % Eos % (Auto) 2.0 (0-4) % Baso % (Auto) 0.5 (0-2) % Lymph # (Auto) 1.9 (1.2-4.9) X10*3/uL [place] # (Auto) 0.6 (0.1-1.2) X10*3/uL Eos # (Auto) 0.2 (0.0-0.4) X10*3/uL Baso # (Auto) 0.0 (0.0-0.2) X10*3/uL Abs Immat Gran (auto) 0.02 (0.00-0.03) X10*3/uL Absolute Neuts (auto) 4.7 (2.0-8.3) x10*3/uL Absolute Nucleated RBC 0.000 (0.0-0.012) X10*3/uL Nucleated RBC % (auto) 0.0 (0.0-0.2) /100WBC Sodium 142 (135-145) mmol/L Potassium 4.8 (3.3-5.1) mmol/L Chloride 106 (96-108) mmol/L Carbon Dioxide 29 (22-29) mmol/L Anion Gap 12 (12-20) BUN 10 (9-16) mg/dL Creatinine 0.77 (0.5-1.4) mg/dL Estim Creat Clear Calc 54.5 Estimated GFR > 60 Random Glucose 140 H (60-115) mg/dL Calcium 9.7 (8.4-10.2) mg/dL Total Bilirubin 0.5 (0.0-1.0) mg/dL AST 26 (5-31) U/L ALT 25 (0-31) U/L Alkaline Phosphatase 99 (39-117) U/L Total Protein 7.2 (6.5-8.0) g/dL Albumin 4.2 (3.5-5.0) g/dL Urine Color Yellow Urine Appearance Clear Urine pH 7.0 (5.0-9.0) Ur Specific [place] <= 1.005 (1.005-1.025) Urine Protein Negative (Neg-Trace) mg/dL Urine Glucose (UA) Negative (Negative) mg/dL Urine Ketones Negative (Negative) mg/dL Urine Blood Large (3+) H (Negative) Urine Nitrite Negative (Negative) Ur Leukocyte Esterase Moderate (2+) H (Negative) Urine RBC >20 H (0-2) /HPF Urine WBC 11-20 H (0-5) /HPF Ur Squamous Epith Cells 0-2 (0-2) /HPF Urine Bacteria None Seen (None Seen) Hyaline Casts 0-2 (0-2) /LPF <William Leija - Last Filed: 10/20/22 18:08> Discharge Plan Discharge Clinical Impression: Urinary tract infection <SHAY Calabrese - Last Filed: 10/20/22 20:40> Patient Disposition: Home, Self-Care <SHAY Calabrese - Last Filed: 10/20/22 20:40> Instructions: Urinary Tract Infection in Women (ED) <SHAY Calabrese - Last Filed: 10/20/22 20:40> Additional Instructions: Take the antibiotic twice daily for the next 5 days Follow-up with urology if your symptoms do not improve after antibiotic treatment <SHAY Calabrese - Last Filed: 10/20/22 20:40> Prescriptions: New nitrofurantoin monohyd/m-cryst [Macrobid] 100 mg capsule 100 mg PO Q12H 3 Days Qty: 6 0RF Rx Instructions: must administer with a meal/food No Action alendronate 70 mg tablet 70 mg PO QWEEK Qty: 12 3RF atorvastatin 10 mg tablet 10 mg PO BEDTIME Qty: 90 8RF calcium carbonate 600 mg calcium (1,500 mg) tablet 1,200 mg PO DAILY Qty: 120 3RF lisinopril 5 mg tablet 5 mg PO DAILY Qty: 90 8RF naproxen 500 mg tablet 500 mg PO BID PRN (Reason: pain) Qty: 20 0RF <SHAY Calabrese - Last Filed: 10/20/22 20:40> Referrals: Tu Menchaca MD [Physician] - <SHAY Calabrese - Last Filed: 10/20/22 20:40> Interventions: ED Discharge Assessment Last Done: 10/20/22 18:46 <SHAY Calabrese - Last Filed: 10/20/22 20:40> Discharge Date/Time: 10/20/22 18:48 <SHAY Calabrese - Last Filed: 10/20/22 20:40>
[2022-10-20 15:48] LABS: MANUAL DIFF FLAG NO
[2022-10-20 15:53] LABS: Appearance Urine Clear; Color Urine Yellow; Glucose Urine UA Negative (Negative); Leukocyte Esterase Urine Moderate (2+) (Negative); Nitrite Urine Negative (Negative); Specific Gravity - Urine <= 1.005 (1.005-1.025); UMIC TRIGGER UACC YES; Urine Blood Large (3+) (Negative); Urine Ketones Negative (Negative); Urine Protein Negative (Neg-Trace)
[2022-10-20 15:55] LABS: Basophils Percent Auto 0.5 % (0-2); Eosinophils Absolute Auto 0.2 X10*3/uL (0.0-0.4); Hematocrit 43.5 % (37.0-47.0); Hemoglobin 14.4 g/dl (12.0-16.0); Imm Gran Abs Auto 0.02 X10*3/uL (0.00-0.03); Imm Gran Pct Auto 0.3 % (0.0-0.4); Lymphocytes Absolute Auto 1.9 X10*3/uL (1.2-4.9); Lymphocytes Percent Auto 25.1 % (20-40); Mean Corpuscular HGB Conc 33.1 g/dl (31.0-35.0); Mean Corpuscular Hemoglobin 31.4 pg (27.0-33.0); Mean Corpuscular Volume 94.8 fL (80.0-98.0); Mean Platelet Volume 10.4 fL (9.4-12.3); Monocytes Absolute Auto 0.6 X10*3/uL (0.1-1.2); Monocytes Percent Auto 8.4 % (2-11); Neutrophils Absolute Auto 4.7 x10*3/uL (2.0-8.3); Neutrophils Percent Auto 63.7 % (45-73); Platelet Count 287 X10*3/uL (160-400); Red Blood Count 4.59 X10*6/uL (4.20-5.50); Red Cell Distribution Width 12.4 % (11.0-16.0); White Blood Count 7.4 X10*3/uL (4.8-10.8)
[2022-10-20 15:58] LABS: Bacteria Urine None Seen (None Seen); Hyaline Casts Urine 0-2 /LPF (0-2); RBC Urine >20 /HPF (0-2); Squamous Epithelial Cell Urine 0-2 /HPF (0-2); UACC Culture Trigger YES
[2022-10-20 16:13] LABS: Alanine Aminotransferase 25 U/L (0-31); Albumin Level 4.2 g/dL (3.5-5.0); Alkaline Phosphatase 99 U/L (39-117); Anion Gap 12 (12-20); Aspartate Amino Transferase 26 U/L (5-31); Bilirubin Total 0.5 mg/dL (0.0-1.0); Blood Urea Nitrogen 10 mg/dL (9-16); Calcium 9.7 mg/dL (8.4-10.2); Carbon Dioxide 29 mmol/L (22-29); Chloride 106 mmol/L (96-108); Creatinine Clr Calc Pharmacy 54.5; Estimated Glomerular Filt Rate > 60; Glucose Random 140 mg/dL (60-115); Potassium 4.8 mmol/L (3.3-5.1); Sodium 142 mmol/L (135-145); Total Protein 7.2 g/dL (6.5-8.0)
[2022-10-20 17:56] VITALS: BP 131/70; PULSE 65; RESP 16; TEMP 36.1; O2SAT 97
== END 2022-10-20 18:48 | disposition home or self-care (01) ==
PROVIDERS: Physician Assistant; Emergency Provider Student in an Organized Health Care Education/Training Program; PCP Internal Medicine
DX: N39.0 Urinary tract infection, site not specified (principal); R10.9 Unspecified abdominal pain; R35.0 Frequency of micturition; R31.9 Hematuria, unspecified; Z79.899 Other long term (current) drug therapy; Z87.891 Personal history of nicotine dependence
CPT/HCPCS: 36415; 74176; 80053; 81001; 85025; 87086; 99284

== ENCOUNTER 2022-11-16 13:32 | Emergency (ER) | payer MEDICARE, SELFPAY ==
--- NOTE | 2022-11-16 13:38 | ED.EYEPROB ---
HPI - Eye Problem General Chief complaint: Eye Problems <SHAY Maher Last Filed: 11/16/22 13:53> Stated complaint: irritation in both eyes <SHAY Maher Last Filed: 11/16/22 13:53> Time Seen by Provider: 11/16/22 14:05 <SHAY Maher Last Filed: 11/16/22 13:53> Source: patient <SHAY Reid Last Filed: 11/16/22 14:35> Mode of arrival: ambulatory <SHAY Reid Last Filed: 11/16/22 14:35> Limitations: no limitations <SHAY Reid Last Filed: 11/16/22 14:35> History of Present Illness HPI Narrative: 71-year-old female with past medical history of glaucoma, HLD, osteoporosis, HTN, presenting with bilateral eye watering for the past 2 days, patient reports that yesterday she was outside all day in symptoms worsen. She tells me her eyes are stinging and she feels like there is pieces of sand in them. She states fatigue ears are completely clear. Denies visual changes, headache, vision changes, fevers, chills, chest pain, shortness of breath, neck pain, nausea and vomiting. <SHAY Reid Last Filed: 11/16/22 14:35> Related Data Home medications: Previous Rx's Medication Instructions Recorded alendronate 70 mg tablet 70 mg PO QWEEK #12 tabs 10/16/22 atorvastatin 10 mg tablet 10 mg PO BEDTIME #90 tabs 10/16/22 calcium carbonate 600 mg calcium 1,200 mg PO DAILY #120 tabs 10/16/22 (1,500 mg) tablet lisinopril 5 mg tablet 5 mg PO DAILY #90 tabs 10/16/22 naproxen 500 mg tablet 500 mg PO BID PRN pain #20 tabs 10/16/22 nitrofurantoin 100 mg PO Q12H 3 days #6 caps 10/20/22 monohydrate/macrocrystals 100 mg capsule (Macrobid) diphenhydramine HCl 25 mg capsule 25 mg PO TID PRN allergic reaction 11/16/22 (Benadryl) #20 caps loratadine 10 mg tablet 10 mg PO DAILY PRN allergic 11/16/22 symptoms #30 tabs sulfacetamide sodium 10 % eye drops 1 drp ophthalmic (eye) Q4H 5 days 11/16/22 #15 mL <SHAY Maher - Last Filed: 11/16/22 13:53> Allergies/adverse reactions: Allergies Allergy/AdvReac Type Severity Reaction Status Date / Time oxycodone [From PERCOCET] Allergy Unknown ITCHY/RASH Verified 11/16/22 13:46 <SHAY Maher Last Filed: 11/16/22 13:53> Review of Systems Review of Systems: Constitutional : No Weight loss, No Fever, No Chills, No Fatigue, No Malaise ENT/Mouth : No sore throat, No Rhinorrhea Eyes: No Eye Pain, No Swelling, + Redness Cardiovascular : No Chest Pain, No SOB, No Dyspnea on Exertion, No Orthopnea, No Edema, No Palpitations Respiratory : No Cough, No Sputum, No Wheezing Gastrointestinal : No Nausea, No Vomiting, No Diarrhea, No Constipation, No abdominal Pain, No Hematochezia, No Melena Genitourinary : No Dysuria, No Urinary Frequency, No Hematuria, Musculoskeletal : No joint pain, No Myalgias, No Joint Swelling Skin : No Skin Lesions, No rash Neuro : No Weakness, No Numbness, No Dizziness, No Headache Psych : No Anxiety/Panic, No Depression All other systems reviewed and are negative <SHAY Reid Last Filed: 11/16/22 14:35> Yes all other systems are reviewed and are negative <SHAY Reid Last Filed: 11/16/22 14:35> [facility] Past Medical History Attestation statement: The following information was validated with the patient. <SHAY Reid Last Filed: 11/16/22 14:35> Source: old records reviewed and nursing notes reviewed <SHAY Reid Last Filed: 11/16/22 14:35> Medical History: Medical History Hyperlipidemia Hypertension Osteoporosis <SHAY Maher Last Filed: 11/16/22 13:53> Surgical History: Surgical History H/O rectal polypectomy History of breast surgery History of colonoscopy History of surgery <SHAY Maher - Last Filed: 11/16/22 13:53> Family History Family History: Family History Father Colon cancer Mother CVD (cardiovascular disease) Brother Alcoholism Paternal Uncle Stomach cancer Sister Diabetes Kidney failure, acute <SHAY Maher - Last Filed: 11/16/22 13:53> Social History Social History: Social History Household Members: None Housing: Apartment Alcohol intake: never Patient Tobacco Use Status: Former Tobacco user Tobacco use type: Cigarette e-Cigarette/Vaping Use: Never Used Second Hand Smoke Exposure: No Advance Directives: No Advance Directives Information Provided: Yes service: No Current occupational status: employed Current occupational exposures/hazards: No Cognitive needs: No Hearing needs: No Vision needs: Yes <SHAY Maher - Last Filed: 11/16/22 13:53> Physical Exam Vital Signs: Vital Signs: Last Vital Signs Temp 98 F 11/16/22 13:47 Pulse 90 11/16/22 13:47 Resp 16 11/16/22 13:47 BP 118/82 11/16/22 13:47 Pulse Ox 98 11/16/22 13:47 O2 Del Method Room Air 11/16/22 13:47 BMI result Body Mass Index 24.5 <SHAY Maher - Last Filed: 11/16/22 13:53> Vital Signs: Last Vital Signs Temp 98 F 11/16/22 13:47 Pulse 90 11/16/22 13:47 Resp 16 11/16/22 13:47 BP 118/82 11/16/22 13:47 Pulse Ox 98 11/16/22 13:47 O2 Del Method Room Air 11/16/22 13:47 BMI result Body Mass Index 24.5 vss <SHAY Reid - Last Filed: 11/16/22 14:35> Appearance: Alert.? Oriented X3.? No acute distress.? Head: Normocephalic, atraumatic, no step-offs or deformities Eyes: Pupils equal, round and reactive to light.? Extraocular movements intact and pain-free. Conjunctiva injected bilaterally. Clear tearing from bilateral eyes Pocket visual acuity intact. ENT: Pharynx normal.? Neck: Normal inspection.? Neck supple.? CVS: Normal heart rate and rhythm.? Pulses normal.? Respiratory: No respiratory distress.? Breath sounds normal.? Abdomen: Soft and nontender.? Skin: Skin warm and dry.? Normal skin color.? Normal skin turgor.? Extremities: No lower extremity edema.? No calf ttp. 5/5 strength to bilateral upper and lower extremities Back: No midline tenderness, no C-spine tenderness, full range of motion, no CVA tenderness bilaterally Neuro: Oriented X 3.? No motor deficit.? No sensory deficit. CN 2-12 intact <SHAY Reid - Last Filed: 11/16/22 14:35> Course Course Course Narrative: RME: 71-year-old female with past medical history of glaucoma, HLD, osteoporosis, HTN, presenting to the ED complaining of bilateral pruritic/irritated eyes with tearing x 2 days. Reports feels like sandpaper and eyes. Denies direct injury/trauma or fall, vision loss. Admits wears glasses, no contact VA, fluorescein/tetracaine ordered Full HPI, ROS and PE to be performed by primary ED provider. <SHAY Maher - Last Filed: 11/16/22 13:53> Reevaluation(s) Reevaluation #1: Patient to be discharged home with home medications. Educated patient on diagnosis and treatment plan, answered all question, patient verbalizes understanding. At this time patient will be discharged home, advised to return with new or worsening symptoms. Educated on worrisome signs and symptoms and when to return. At this time I feel comfortable discharge home. <SHAY Reid - Last Filed: 11/16/22 14:35> Time: 14:35 <SHAY Reid - Last Filed: 11/16/22 14:35> Medications Administered Discontinued Medications Generic Name Dose Route Start Last Admin Trade Name Freq PRN Reason Stop Dose Admin Fluorescein Sodium 1 strip 11/16/22 13:38 11/16/22 14:08 Fluorescein Sodium Strip EYE-BOTH 11/16/22 13:39 1 strip ONCE ONE Administration Tetracaine HCl 1 drop 11/16/22 13:38 11/16/22 14:08 Tetracaine Hcl/Pf 0.5% Oph Alysa 4 Ml Drops EYE-BOTH 11/16/22 13:39 1 drop ONCE ONE Administration <SHAY Maher - Last Filed: 11/16/22 13:53> Medications Administered Discontinued Medications Generic Name Dose Route Start Last Admin Trade Name Herminio PRN Reason Stop Dose Admin Fluorescein Sodium 1 strip 11/16/22 13:38 11/16/22 14:08 Fluorescein Sodium Strip EYE-BOTH 11/16/22 13:39 1 strip ONCE ONE Administration Tetracaine HCl 1 drop 11/16/22 13:38 11/16/22 14:08 Tetracaine Hcl/Pf 0.5% Oph Alysa 4 Ml Drops EYE-BOTH 11/16/22 13:39 1 drop ONCE ONE Administration <SHAY Reid - Last Filed: 11/16/22 14:35> Medical Decision Making Medical Decision Making MDM Narrative: 71-year-old female presents with bilateral eye tearing, redness, itchiness for the past 2 days reports being outside for prolonged periods of time worse yesterday. Has not tried anything at home for this. Physical examination bilateral conjunctiva injected, normal visual acuity. Extraocular movements intact and pain-free. Bedside fluorescein stain without uptake. No signs of corneal abrasion. Negative Maximo sign Likely allergic conjunctivitis. Unlikely foreign body, corneal abrasion, globe rupture, acute closed angle glaucoma wet macular degeneration. Plan at this time discharge patient home on Bleph 10, loratadine and Benadryl. <SHAY Reid - Last Filed: 11/16/22 14:35> Differential Diagnosis Differential Diagnoses: The differential diagnosis associated with the presentation includes <SHAY Reid Last Filed: 11/16/22 14:35> Likely allergic conjunctivitis. Unlikely foreign body, corneal abrasion, globe rupture, acute closed angle glaucoma wet macular degeneration. <SHAY Reid Last Filed: 11/16/22 14:35> Admission/Observation Consideration of admission/observation: Escalation of care including admission/observation considered <SHAY Reid Last Filed: 11/16/22 14:35> Core Measures AMI core measures followed: Yes <SHAY Reid Last Filed: 11/16/22 14:35> Measure exclusions: not indicated <SHAY Reid Last Filed: 11/16/22 14:35> Critical Care Time Critical Care Time Critical Care Time: No <SHAY Reid Last Filed: 11/16/22 14:35> Discharge Plan Discharge Clinical Impression: Allergic conjunctivitis <SHAY Maher Last Filed: 11/16/22 13:53> Patient Disposition: Home, Self-Care <SHAY Maher Last Filed: 11/16/22 13:53> Instructions: How to Use Eye Drops (ED), Conjunctivitis (ED) <SHAY Maher Last Filed: 11/16/22 13:53> Additional Instructions: Take your medications as prescribed. If you were prescribed antibiotics today, it is important that you take your medication to their entirety, do not skip any doses, do not finish them early. Follow-up with your primary care provider this week. Return to the emergency department with new or worsening symptoms. Such as fevers, chills, chest pain, shortness of breath, nausea, vomiting, dizziness, headache, vision changes, lethargy In case of emergency call 911 <SHAY Maher Last Filed: 11/16/22 13:53> Prescriptions: New diphenhydramine HCl [Benadryl] 25 mg capsule 25 mg PO TID PRN (Reason: allergic reaction) Qty: 20 0RF loratadine 10 mg tablet 10 mg PO DAILY PRN (Reason: allergic symptoms) Qty: 30 0RF sulfacetamide sodium 10 % drops 1 drp ophthalmic (eye) Q4H 5 Days Qty: 15 0RF No Action nitrofurantoin monohyd/m-cryst [Macrobid] 100 mg capsule 100 mg PO Q12H 3 Days Qty: 6 0RF Rx Instructions: must administer with a meal/food alendronate 70 mg tablet 70 mg PO QWEEK Qty: 12 3RF atorvastatin 10 mg tablet 10 mg PO BEDTIME Qty: 90 8RF calcium carbonate 600 mg calcium (1,500 mg) tablet 1,200 mg PO DAILY Qty: 120 3RF lisinopril 5 mg tablet 5 mg PO DAILY Qty: 90 8RF naproxen 500 mg tablet 500 mg PO BID PRN (Reason: pain) Qty: 20 0RF <SHAY Maher - Last Filed: 11/16/22 13:53> Referrals: Mike Carlin MD [Primary Care Provider] - 2 days <SHAY Maher - Last Filed: 11/16/22 13:53>
[2022-11-16 13:47] VITALS: BP 118/82; PULSE 90; RESP 16; TEMP 36.6; O2SAT 98; BMI 24.5
[2022-11-16] MEDS: Fluorescein Sodium STRIP 1 STRIP EYE-BOTH (14:08)
[2022-11-16] MEDS: Tetracaine HCl/PF 0.5% Oph Sol 4 ML DROPS 1 DROP EYE-BOTH (14:08)
== END 2022-11-16 14:34 | disposition home or self-care (01) ==
PROVIDERS: Emergency Provider Emergency Medicine; PCP Internal Medicine
DX: H10.13 Acute atopic conjunctivitis, bilateral (principal)
CPT/HCPCS: 99282

== ENCOUNTER → 2022-11-20 14:16 | Outpatient (BNVA) | payer MEDICARE, SELFPAY | PROVIDERS: PCP Internal Medicine; Visit Provider Obstetrics & Gynecology ==

== ENCOUNTER 2023-02-07 12:27 | Emergency (ER) | payer MEDICARE, SELFPAY ==
--- NOTE | ~2023-02-07 | US_ITS ---
EXAMINATION: US VENOUS ULTRASOUND WITH DOPPLER LOWER EXTREMITY, LEFT CLINICAL INFORMATION: Calf pain posterior knee pain question Thomas's cyst COMPARISON: None available. TECHNIQUE: Ultrasound of the deep veins is performed from the hip to the calf with compression sonography and color and pulse Doppler assessment. Spectral analysis with color-flow imaging is performed. FINDINGS: There is normal venous compression and respiratory variation and augmented flow. The visualized common femoral vein, superficial femoral vein, profunda femoral vein, popliteal vein, and the trifurcation region shows no evidence of deep venous thrombosis. Contralateral common femoral vein is patent. There is no significant popliteal fossa cyst. If the patient's symptoms persist, followup ultrasound in 5 days 7 days might be of value to exclude proximal propagation from a non-visualized calf vein. US/US venous duplex LE IMPRESSION: No DVT demonstrated in the left lower extremity.
--- NOTE | ~2023-02-07 | XR_ITS ---
EXAMINATION: XR KNEE, LEFT CLINICAL INFORMATION: Pain injured yesterday COMPARISON: None available. TECHNIQUE: Four views of the left knee. FINDINGS: No acute visible fracture or dislocation. Mild multicompartment degenerative changes with mild narrowing of the femorotibial compartment. Periarticular osteophytes along the anterior superior margin of the patella. Fabella is noted in the posterior compartment. Joint spaces and alignment are maintained. Small to moderate knee joint effusion. Soft tissue swelling greatest along the suprapatellar region. XR/XR knee LT 3V IMPRESSION: 1. No acute visible fracture or dislocation. 2. Mild multicompartment degenerative changes. 3. Small to moderate knee joint effusion. 4. Soft tissue swelling greatest along the suprapatellar region.
--- NOTE | 2023-02-07 13:01 | ED.GENADULT ---
HPI - General Adult General Chief complaint: Extremity Injury, Lower Stated complaint: knee pain Time Seen by Provider: 02/07/23 14:14 Source: patient, RN notes reviewed and vision care associate Mode of arrival: ambulatory Limitations: language barrier History of Present Illness HPI narrative: This is a 72-year-old Tuvaluan-speaking female with history of osteoporosis, HTN, HLD presenting to the emergency department with complaint of left knee pain and pressure. She states that while pulling a cart yesterday she felt immediate pain in her right knee. Pain has been worsening since. Denies fall. Did not take any pain medications for her discomfort. Pain worse with ambulation. complaint: Knee Pain Related Data Previous Rx's Medication Instructions Recorded alendronate 70 mg tablet 70 mg PO QWEEK #12 tabs 10/16/22 atorvastatin 10 mg tablet 10 mg PO BEDTIME #90 tabs 10/16/22 calcium carbonate 600 mg calcium 1,200 mg PO DAILY #120 tabs 10/16/22 (1,500 mg) tablet lisinopril 5 mg tablet 5 mg PO DAILY #90 tabs 10/16/22 naproxen 500 mg tablet 500 mg PO BID PRN pain #20 tabs 10/16/22 diphenhydramine HCl 25 mg capsule 25 mg PO TID PRN allergic reaction 11/16/22 (Benadryl) #20 caps loratadine 10 mg tablet 10 mg PO DAILY PRN allergic 11/16/22 symptoms #30 tabs sulfacetamide sodium 10 % eye drops 1 drp ophthalmic (eye) Q4H 5 days 11/16/22 #15 mL Allergies Allergy/AdvReac Type Severity Reaction Status Date / Time oxycodone [From PERCOCET] Allergy Unknown ITCHY/RASH Verified 02/07/23 13:06 Review of Systems Review of Systems: Yes all other systems are reviewed and are negative Constitutional: Constitutional: Reports as per HPI [facility] Past Medical History Medical History Hyperlipidemia Hypertension Osteoporosis Surgical History H/O rectal polypectomy History of breast surgery History of colonoscopy History of surgery Family History Family History Father Colon cancer Mother CVD (cardiovascular disease) Brother Alcoholism Paternal Uncle Stomach cancer Sister Diabetes Kidney failure, acute Social History Social History Household Members: None Housing: Apartment Alcohol intake: never Patient Tobacco Use Status: Former Tobacco user Tobacco use type: Cigarette Smoked in Last 30 Days: No e-Cigarette/Vaping Use: Never Used Second Hand Smoke Exposure: No Use of substances other than those prescribed or required for medical reasons: No Advance Directives: No Advance Directives Information Provided: No service: No Current occupational status: employed 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 Current occupational exposures/hazards: No Cognitive needs: No Hearing needs: No Vision needs: Yes Physical Exam ED Vital Signs: Vital Signs - 24 hr 02/07/23 13:02 Temperature 98 F Pulse Rate 93 Respiratory Rate 18 Blood Pressure 126/76 Pulse Oximetry 95 Oxygen Delivery Method Room Air BMI result Body Mass Index 24.7 Const General: cooperative, comfortable and no acute distress Orientation/consciousness: patient oriented x3 Limitations: no limitations HENMT Head: Yes normal to inspection, Yes normocephalic and Yes atraumatic Ears: hearing grossly normal bilaterally General nose exam: Normal external nose present Face and sinus: Yes normal facial exam Mouth: Normal oral and palatal mucosa present, oropharynx normal and moist mucous membranes Throat: Yes posterior oropharynx normal Eyes General: appearance normal, both eyes and all related structures Eyelids: Yes eyelids normal Conjunctivae: conjunctivae normal Sclerae: sclerae normal Pupils: Equal, round and reactive pupils present EOM: EOMs intact bilaterally Neck Neck: Yes normal visual inspection, Yes full ROM and Yes no lymphadenopathy Lymphatic: no lymphadenopathy noted Chest Chest palpation & inspection: normal inspection of the chest Resp Effort & Inspection: normal respiratory effort and able to speak in complete sentences Auscultation: clear to auscultation bilaterally, no crackles, no rales, no rhonchi and no wheezes Cardio Rate: regular rate Rhythm: regular rhythm Heart sounds: S1 normal heart sound present and S2 normal heart sound present GI Inspection: Yes normal to inspection Skin General skin exam: no rashes or lesions noted Trauma: no lacerations or abrasions Wounds: no wounds Neuro General: patient oriented x3 and moves all extremities Cranial nerves: Yes Equal, round and reactive pupils present Extrem Other: Left knee: No obvious deformity or swelling. TTP over posterior knee. Pain with anterior drawer test. ROM full and intact with pain elicted. DP pulses 2+. Mild TTP over left calf, no palpable cords, negative Clifford's sign. General: Yes normal to inspection Right upper extremity: normal to inspection Left upper extremity: normal to inspection Right lower extremity: normal to inspection Left lower extremity: normal to inspection Course Course Course Narrative: This is a rapid medical exam: Additional HPI, ROS, PE not included below will be deferred to primary provider. Patient is a 72-year-old Tuvaluan-speaking female with history of osteoporosis, HTN, HLD presenting to the emergency department with complaint of left knee pain and pressure. Denies fall but states she did bump it yesterday. Did not take any pain medications for her discomfort. Pain worse with ambulation. Also complains of left lower back pain but states the two areas are separate, not radiating. Plan: x-ray Reevaluation(s) Reevaluation #1: US negative for DVT and thomas's cyst. Xrays revealing degenerative changes. Explained that this only shows bony abnormalities and not tendon/ligaments. Advised to RICE techniques, given rahat wrap, advised to use cane at home. Given orthopedic f/u if symptoms persist. Pt understands and agrees with plan. Pt stable for d/c. Medical Decision Making Medical Decision Making [facility] Narrative: 72 y/o F presenting to the Er for evaluation of knee pain since yesterday. Able to flex and extend although somewhat limited by pain. Considered, but doubt, tibial plateau fracture, septic arthritis, other acute unstable fracture, or significant neurovascular compromise. Xrays obtained. Given TTP over calf and posterior knee, ordered US for r/o DVT vs thomas's cyst. Differential Diagnosis Differential Diagnoses: The differential diagnosis associated with the presentation includes knee strain sprain thomas's cyst DVT Admission/Observation Consideration of admission/observation: Escalation of care including admission/observation considered Patient would have been admitted to the hospital had her work up had any findings where hospital admission was appropriate and her clinical presentation warranted hospital admission. Lab Data [facility] Lab Attestation statement: I reviewed the patient's lab results. Radiology Impression Discussion of test interpretation with radiology: I have reviewed the radiologist's reading. Radiologist Impression: EXAMINATION: XR KNEE, LEFT CLINICAL INFORMATION: Pain injured yesterday? COMPARISON: None available.? TECHNIQUE: Four views of the left knee. FINDINGS: No acute visible fracture or dislocation. Mild multicompartment degenerative changes with mild narrowing of the femorotibial compartment. Periarticular osteophytes along the anterior superior margin of the patella. Fabella is noted in the posterior compartment. Joint spaces and alignment are maintained. Small to moderate knee joint effusion. Soft tissue swelling greatest along the suprapatellar region. ? XR/XR knee LT 3V IMPRESSION: 1.? No acute visible fracture or dislocation. 2.? Mild multicompartment degenerative changes. 3.? Small to moderate knee joint effusion. 4.? Soft tissue swelling greatest along the suprapatellar region. ? Dictated By: Keyanna Mo MD [place] [id number] Ultrasound Report Signed Patient: Chandni Luther MR#: [id number] : 1950 Acct:[id number] Age/Sex: 72 / F ADM Date: 02/07/23 Loc: HO.ED Attending Dr: Ordering Physician: Joann Zimmerman Date of Service: 02/07/23 Procedure(s): US venous duplex LE LT Accession Number(s): [id number] cc: Joann Zimmerman~ EXAMINATION:? US VENOUS ULTRASOUND WITH DOPPLER LOWER EXTREMITY, LEFT CLINICAL INFORMATION:? Calf pain posterior knee pain question Thomas's cyst COMPARISON:? None available. TECHNIQUE: Ultrasound of the deep veins is performed from the hip to the calf with compression sonography and color and pulse Doppler assessment. Spectral analysis with color-flow imaging is performed. FINDINGS: There is normal venous compression and respiratory variation and augmented flow. The visualized common femoral vein, superficial femoral vein, profunda femoral vein, popliteal vein, and the trifurcation region shows no evidence of deep venous thrombosis. Contralateral common femoral vein is patent. There is no significant popliteal fossa cyst. If the patient's symptoms persist, followup ultrasound in 5 days 7 days might be of value to exclude proximal propagation from a non-visualized calf vein. US/US venous duplex LE LT IMPRESSION: No DVT demonstrated in the left lower extremity. Dictated By: Keyanna Mo MD Signed By: <Electronically signed by Keyanna Mo MD in OV> 02/07/23 1633 DD/ 1554 External Record Review External record reviewed: Inpatient record, Office record, Outpatient record, Prior outpatient labs, Prior outpatient radiology, Primary care record and Outside ED record Discharge Plan Discharge Clinical Impression: Acute knee pain Patient Disposition: Home, Self-Care Instructions: Knee Pain (ED) Additional Instructions: Your x-rays did not show any new broken bones. It did show arthritis and swelling. We are unable to determine whether not you have a tear in 1 of the ligaments or tendons in your knee. This is why it is critical to follow-up with orthopedics for for further management and treatment of your symptoms. Please rest, ice, use Rahat wrap, and elevate your knee. Please take Tylenol as directed as needed for pain. Please call Orthopedics on Thursday for follow-up. If any new or worsening symptoms occur please return for re-evaluation. Isela radiograf?as no mostraron nuevos huesos rotos. Mostr? artritis e hinchaz?n. No podemos determinar si tiene un desgarro en damon de los ligamentos o tendones de la rodilla. Esta es la alden?n por la que es fundamental realizar un seguimiento con [employer] para un mayor control y tratamiento de isela s?ntomas. Por favor, descanse, hielo, use vendaje Rahat y eleve la rodilla. Tina Tylenol seg?n las indicaciones seg?n sea necesario para el dolor. Llame a [employer] el lunes para un seguimiento. Si se presentan s?ntomas nuevos o que empeoran, regrese para tae reevaluaci?n. Prescriptions: No Action diphenhydramine HCl [Benadryl] 25 mg capsule 25 mg PO TID PRN (Reason: allergic reaction) Qty: 20 0RF loratadine 10 mg tablet 10 mg PO DAILY PRN (Reason: allergic symptoms) Qty: 30 0RF sulfacetamide sodium 10 % drops 1 drp ophthalmic (eye) Q4H 5 Days Qty: 15 0RF alendronate 70 mg tablet 70 mg PO QWEEK Qty: 12 3RF atorvastatin 10 mg tablet 10 mg PO BEDTIME Qty: 90 8RF calcium carbonate 600 mg calcium (1,500 mg) tablet 1,200 mg PO DAILY Qty: 120 3RF lisinopril 5 mg tablet 5 mg PO DAILY Qty: 90 8RF naproxen 500 mg tablet 500 mg PO BID PRN (Reason: pain) Qty: 20 0RF Referrals: [facility] [Provider Group] Stand Alone Forms: Work/School Release Interventions: ED Discharge Assessment Last Done: 02/07/23 18:43 Discharge Date/Time: 02/07/23 18:43
[2023-02-07 13:02] VITALS: BP 126/76; PULSE 93; RESP 18; TEMP 36.6; O2SAT 95; BMI 24.7
== END 2023-02-07 18:43 | disposition home or self-care (01) ==
PROVIDERS: Emergency Provider Student in an Organized Health Care Education/Training Program
DX: M25.561 Pain in right knee (principal); M79.662 Pain in left lower leg; I10 Essential (primary) hypertension; E78.5 Hyperlipidemia, unspecified; Z87.891 Personal history of nicotine dependence
CPT/HCPCS: 73562; 93971; 99284

== ENCOUNTER 2023-02-16 13:06 | Outpatient (AMB) | payer MEDICARE, SELFPAY ==
--- NOTE | 2023-02-16 13:14 | MHC.PC.OV ---
Vital Signs 02/16/23 13:15 Height 5 ft 2 in Weight 134 lb BMI 24.5 BP 118/70 Blood Pressure Location Lt brachial Position Sitting Pulse 97 Pulse Source Pulse Oximeter Pulse Oximetry (%) 95 Intake Visit Reasons: 4mth f/u Intake Note: pt is here for 4 month f.u Accompanied by: Self / Same As Patient Allergies oxycodone [From PERCOCET] Allergy (Unknown, Verified 02/16/23 13:15) ITCHY/RASH Medication List - Last Reconciled 02/16/23 by Mike Carlin MD alendronate 70 mg PO QWEEK atorvastatin 10 mg PO BEDTIME calcium carbonate 1,200 mg (2 x 600 mg calcium (1,500 mg)) PO DAILY diphenhydramine HCl (Benadryl) 25 mg PO TID PRN lisinopril 5 mg PO DAILY loratadine 10 mg PO DAILY PRN naproxen 500 mg PO BID PRN sulfacetamide sodium 10% 1 drp ophthalmic (eye) Q4H 5 days Tobacco use date assessed: 10/16/22 Fall risk assessment: No Falls in past year Last assessed Fall Risk: 02/16/23 Dental Screening Dental Screen Date: 02/16/23 Did you have a dental visit in the last 12 months?: Yes Did you have a dental problem in the last 6 months where you did not have access to dental care?: No Was dental information given to patient?: Patient has dentist HPI 4mth f/u HPI Details HTN hyperlip and osteoporosis on rx; compliant and feeling well PFSH Medical History Hyperlipidemia Hypertension Osteoporosis Surgical History H/O rectal polypectomy History of breast surgery History of colonoscopy History of surgery Family History Father Colon cancer Mother CVD (cardiovascular disease) Brother Alcoholism Paternal Uncle Stomach cancer Sister Diabetes Kidney failure, acute Social History Household Members: None Housing: Apartment Alcohol intake: never Patient Tobacco Use Status: Former Tobacco user Tobacco use type: Cigarette e-Cigarette/Vaping Use: Never Used Second Hand Smoke Exposure: No service: No Current occupational status: employed Current occupation: [employer] Current occupational exposures/hazards: No Cognitive needs: No Hearing needs: No Vision needs: Yes Questionnaire PHQ-9 Over the last 2 weeks, how often have you been bothered by any of the following problems? Depression Screening Interpretation: Negative Source: Developed by Drs. Shaun Law, Julissa Sellers, Danny Lopez and colleagues, with an educational manisha from [employer]. Thrive Questionnaire Date Thrive assessed: 10/16/22 Currently or been in a relationship where the following occur: no concerns reported NUHA-7 AMB Questionnaire NUHA-7 Date NUHA - 7 assessed: 10/16/22 Source: Developed by Drs. Shaun Law, Julissa Sellers, Danny Lopez and colleagues, with an educational manisha from [employer]. Review of Systems Const Denies chills, Denies headache(s) and Denies weight loss ENT Denies headache(s) Card Denies chest pain, Denies syncope, Denies irregular heart rhythm and Denies dyspnea Resp Denies chest congestion, Denies cough and Denies dyspnea GI Denies abdominal pain, Denies change in stool character, Denies nausea and Denies vomiting Musc Denies deformity and Denies joint swelling Neuro Denies syncope and Denies headache(s) Physical exam (Primary Care) Vital Signs: Last Vital Signs Pulse 97 02/16/23 13:15 BP 118/70 02/16/23 13:15 Pulse Ox 95 02/16/23 13:15 BMI result Body Mass Index 24.5 Tobacco/Smoking Status: Tobacco use Status Tobacco use date assessed 10/16/22 02/16/23 13:15 Patient Tobacco Use Status Former Tobacco user 02/16/23 13:15 Tobacco use type Cigarette 02/16/23 13:15 e-Cigarette/Vaping Use Never Used 02/16/23 13:15 Depression Screening Interpretation: Negative Thrive Assessment: Date of Thrive Assessment Date Thrive assessed 10/16/22 02/16/23 13:15 Currently or been in a relationship where the following occur: no concerns reported Const General: cooperative, healthy appearing and no acute distress Chest Chest palpation & inspection: normal inspection of the chest Resp Effort & Inspection: normal respiratory effort Auscultation: clear to auscultation bilaterally Percussion: percussion normal Cardio Jugular venous distension: no JVD Rate: regular rate Rhythm: regular rhythm GI Inspection: Yes normal to inspection Assessment and Plan Assessment & Plan (1) Hyperlipidemia: Code(s): E78.5 - Hyperlipidemia, unspecified Plan: stable; same rx (2) Osteoporosis: Code(s): M81.0 - Age-related osteoporosis without current pathological fracture Plan: stable; same rx (3) Hypertension: Code(s): I10 - Essential (primary) hypertension Plan: stable Orders: Orders Glucose Fasting Today R73.9 - Hyperglycemia, unspecified Hemoglobin A1c Today R73.9 - Hyperglycemia, unspecified Lipid Panel Today E78.5 - Hyperlipidemia, unspecified Coding Level of Care Code Est Pt Level 4 (58527) Diagnoses Hyperlipidemia E78.5 Osteoporosis M81.0 Hypertension I10
[2023-02-16 13:15] VITALS: BP 118/70; PULSE 97; O2SAT 95; BMI 24.5
== END 2023-02-16 13:28 | disposition home or self-care (01) ==
PROVIDERS: Visit Provider Internal Medicine
DX: E78.5 Hyperlipidemia, unspecified (principal); M81.0 Age-related osteoporosis without current pathological fracture; I10 Essential (primary) hypertension
CPT/HCPCS: 99214

== ENCOUNTER 2023-03-27 10:25 | Outpatient (REF) | payer MEDICARE, SELFPAY | END 2023-03-27 10:26 | disposition home or self-care (01) | LOC: HO.HOSX 10:25 | PROVIDERS: Visit Provider Physician Assistant | DX: Z13.89 Encounter for screening for other disorder (principal) ==

== ENCOUNTER 2023-05-02 14:08 | Emergency (ER) | payer MEDICARE, SELFPAY ==
--- NOTE | ~2023-05-02 | XR_ITS ---
EXAMINATION: 2 VIEWS OF THE THORACIC SPINE FRONTAL CHEST WITH 3 VIEWS OF THE RIGHT RIB CAGE CLINICAL INFORMATION: Fall with lateral tenderness. COMPARISON: Chest x-ray from 05/03/2014. TECHNIQUE: 2 views of the thoracic spine Frontal chest with 3 views of the right rib cage FINDINGS: S-shaped scoliosis with associated bridging degenerative changes. The paraspinous lines appear normal. The imaged mediastinum and lungs are unremarkable. No discrete fracture is seen. The cardiomediastinal silhouette is within normal limits. The lungs are well expanded. Trace right pleural effusion. No pneumothorax. Nondisplaced fractures of the anterior right eighth and ninth ribs XR/XR thoracic spine 3V IMPRESSION: Nondisplaced fractures of the anterior right eighth and ninth ribs. No pneumothorax. S-shaped scoliosis without visible spinal fracture.
--- NOTE | ~2023-05-02 | XR_ITS ---
EXAMINATION: 2 VIEWS OF THE THORACIC SPINE FRONTAL CHEST WITH 3 VIEWS OF THE RIGHT RIB CAGE CLINICAL INFORMATION: Fall with lateral tenderness. COMPARISON: Chest x-ray from 05/03/2014. TECHNIQUE: 2 views of the thoracic spine Frontal chest with 3 views of the right rib cage FINDINGS: S-shaped scoliosis with associated bridging degenerative changes. The paraspinous lines appear normal. The imaged mediastinum and lungs are unremarkable. No discrete fracture is seen. The cardiomediastinal silhouette is within normal limits. The lungs are well expanded. Trace right pleural effusion. No pneumothorax. Nondisplaced fractures of the anterior right eighth and ninth ribs XR/XR ribs RT min 3V w CXR1V IMPRESSION: Nondisplaced fractures of the anterior right eighth and ninth ribs. No pneumothorax. S-shaped scoliosis without visible spinal fracture.
[2023-05-02 14:28] VITALS: BP 134/96; PULSE 106; RESP 18; TEMP 36.1; O2SAT 95; BMI 23.7
--- NOTE | 2023-05-02 14:29 | ED.GENADULT ---
HPI - General Adult General Chief complaint: Fall Stated complaint: back pain Time Seen by Provider: 05/02/23 16:02 Source: patient, RN notes reviewed and old records reviewed Mode of arrival: ambulatory History of Present Illness HPI narrative: 72-year-old female with a past medical history of HLD, osteoporosis, HTN, presenting to the ED complaining of right-sided rib pain s/p mechanical trip on sidewalk after work 4 days ago. Reports trip and fall, denies symptoms prior to fall including CP/SOB, lightheadedness or dizziness. Denies taking anticoagulation, head trauma or LOC. denies dysuria, hematuria, abdominal pain, nausea/vomiting Onset (ago): day(s) Related Data Previous Rx's Medication Instructions Recorded alendronate 70 mg tablet 70 mg PO QWEEK #12 tabs 10/16/22 atorvastatin 10 mg tablet 10 mg PO BEDTIME #90 tabs 10/16/22 calcium carbonate 600 mg calcium 1,200 mg (2 x 600 mg calcium 10/16/22 (1,500 mg) tablet (1,500 mg)) PO DAILY #120 tabs lisinopril 5 mg tablet 5 mg PO DAILY #90 tabs 10/16/22 naproxen 500 mg tablet 500 mg PO BID PRN pain #20 tabs 10/16/22 diphenhydramine HCl 25 mg capsule 25 mg PO TID PRN allergic reaction 11/16/22 (Benadryl) #20 caps loratadine 10 mg tablet 10 mg PO DAILY PRN allergic 11/16/22 symptoms #30 tabs sulfacetamide sodium 10 % eye drops 1 drp ophthalmic (eye) Q4H 5 days 11/16/22 #15 mL ketorolac 10 mg tablet 10 mg PO TID PRN pain 5 days #15 05/02/23 tabs lidocaine 5 % topical patch 1 patch topical DAILY PRN pain #30 05/02/23 (Lidoderm) ea Allergies Allergy/AdvReac Type Severity Reaction Status Date / Time oxycodone [From PERCOCET] Allergy Unknown ITCHY/RASH Verified 05/02/23 14:32 Review of Systems Review of Systems: Constitutional: No Fever, No Chills ENT/Mouth: No Ear Pain, No Nasal Congestion, No sore throat, No Rhinorrhea, No Swallowing Difficulty Cardiovascular: + Chest Wall Pain, No SOB Respiratory: No Cough, No Sputum Gastrointestinal: No Nausea, No Vomiting, No Abdominal pain Genitourinary: No Dysuria, No Hematuria, No Urinary Incontinence/retention, No Urgency, No Flank Pain Musculoskeletal: No joint pain, No Myalgias, No Joint Swelling Skin: No Skin Lesions, No rash Neuro: No Weakness, No Numbness, No Paresthesias, No trauma, No LOC Yes all other systems are reviewed and are negative Constitutional: Constitutional: Reports as per [facility] Past Medical History Attestation statement: The following information was validated with the patient. Source: old records reviewed Medical History Hyperlipidemia Osteoporosis Hypertension Surgical History H/O rectal polypectomy History of surgery History of breast surgery History of colonoscopy Family History Family History Father Colon cancer Mother CVD (cardiovascular disease) Brother Alcoholism Paternal Uncle Stomach cancer Sister Diabetes Kidney failure, acute Social History Social History Household Members: None Housing: Apartment Alcohol intake: never Patient Tobacco Use Status: Former Tobacco user Tobacco use type: Cigarette e-Cigarette/Vaping Use: Never Used Second Hand Smoke Exposure: No Advance Directives: No Advance Directives Information Provided: Yes service: No Current occupational status: employed 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 Current occupational exposures/hazards: No Cognitive needs: No Hearing needs: No Vision needs: Yes Physical Exam ED Vital Signs: Vital Signs - 24 hr 05/02/23 14:28 Temperature 96.9 F Pulse Rate 106 H Respiratory Rate 18 Blood Pressure 134/96 H Pulse Oximetry 95 Oxygen Delivery Method Room Air BMI result Body Mass Index 23.7 Const General: cooperative, healthy appearing and no acute distress Orientation/consciousness: patient oriented x3 Limitations: no limitations HENMT Head: Yes normal to inspection and Yes atraumatic Ears: hearing grossly normal bilaterally General nose exam: Normal external nose present Face and sinus: Yes normal facial exam Eyes General: appearance normal, both eyes and all related structures EOM: EOMs intact bilaterally Neck Neck: Yes normal visual inspection and Yes no meningeal signs Chest Other: No chest wall deformity. No flail chest/erythema or ecchymosis. + right-sided anterior/lateral lower rib tenderness to palpation reproducing subjective complaint Chest palpation & inspection: normal inspection of the chest, no crepitus and tenderness Resp Effort & Inspection: normal respiratory effort and no respiratory distress Auscultation: clear to auscultation bilaterally Cardio Rate: regular rate Heart sounds: S1 normal heart sound present and S2 normal heart sound present GI Inspection: Yes normal to inspection Palpation (GI): Soft to palpation, nontender, no guarding and not rigid General: Yes no CVA tenderness Back/Spine/Pelvis Other: No midline cervical/thoracic/lumbar spinous tenderness/step-off or deformity Back: no CVA tenderness Skin Rashes: no rashes Wounds: no wounds Neuro General: patient oriented x3, tone normal and no meningeal signs Cranial nerves: Yes CN's II-XII intact bilaterally Gait exam (Neuro): Normal gait present Extrem General: Yes normal to inspection Course Course Course Narrative: This is a rapid medical exam: Additional HPI, ROS, PE not included below will be deferred to primary provider. Patient is a 72-year-old [place]-speaking female presenting to the emergency department with complaint of right lateral rib pain radiating to back. States that she was walking home from work on the sidewalk and fell. She does not known what happened, denies dizziness, denies trip and fall. Unable to state reason for fall even when clarification attempted. States she is not anticoagulated. Denies head strike or loss of consciousness. Took Tylenol with slight relief. Odor of alcohol noted in triage. Plan: X-rays, basic labs -1618--labs reassuring. Ethanol negative XR thoracic spine 3V/XR ribs RT min 3V w CXR1V IMPRESSION: Nondisplaced fractures of the anterior right eighth and ninth ribs. No pneumothorax. S-shaped scoliosis without visible spinal fracture. Results discussed with patient including worrisome signs and symptoms and strict return precautions, and when to return to the emergency department. They verbalized understanding and feel safe for discharge at this time. Medications Administered Discontinued Medications Generic Name Dose Route Start Last Admin Trade Name Freq PRN Reason Stop Dose Admin Ketorolac Tromethamine 30 mg 05/02/23 16:14 05/02/23 16:24 Ketorolac Tromethamine 30 Mg/Ml Vial IM 05/02/23 16:15 30 mg ONCE ONE Administration Lidocaine 1 patch 05/02/23 16:14 05/02/23 16:23 Lidocaine 4 % Patch Adh..Patch TRANSDERMA 05/02/23 16:15 1 patch ONCE ONE Administration Protocol Medical Decision Making Medical Decision Making [facility] Narrative: 72-year-old female with a past medical history of HLD, osteoporosis, HTN, presenting to the ED complaining of right-sided rib pain s/p mechanical trip on sidewalk after work 4 days ago. On exam tachycardic likely from pain, NAD, nontoxic appearing, physical exam as noted above with reproducible anterior rib tenderness. Abdomen is soft and nontender. No midline spinous tenderness. Concern for rib fracture/contusion. Low suspicion for intrathoracic/intra-abdominal bleeding/hematoma without tenderness on exam Plan: X-rays, labs ordered in triage Please refer to course for remaining clinical decision making, interpretation of labs/imaging results, and discussions with consultants and/or family members. Differential Diagnosis Differential Diagnoses: The differential diagnosis associated with the presentation includes As above Lab Data [facility] Lab Attestation statement: I reviewed the patient's lab results. 05/02/23 14:49 05/02/23 14:49 Labs: Lab Results 05/02/23 Range/Units 14:49 WBC 6.4 (4.8-10.8) X10*3/uL RBC 4.22 (4.20-5.50) X10*6/uL Hgb 13.5 (12.0-16.0) g/dl Hct 40.0 (37.0-47.0) % MCV 94.8 (80.0-98.0) fL MCH 32.0 (27.0-33.0) pg MCHC 33.8 (31.0-35.0) g/dl RDW 12.6 (11.0-16.0) % Plt Count 252 (160-400) X10*3/uL MPV 10.1 (9.4-12.3) fL Immature Gran % (Auto) 0.2 (0.0-0.4) % Neut % (Auto) 64.1 (45-73) % Lymph % (Auto) 24.9 (20-40) % Bath % (Auto) 8.3 (2-11) % Eos % (Auto) 2.2 (0-4) % Baso % (Auto) 0.3 (0-2) % Lymph # (Auto) 1.6 (1.2-4.9) X10*3/uL Bath # (Auto) 0.5 (0.1-1.2) X10*3/uL Eos # (Auto) 0.1 (0.0-0.4) X10*3/uL Baso # (Auto) 0.0 (0.0-0.2) X10*3/uL Abs Immat Gran (auto) 0.01 (0.00-0.03) X10*3/uL Absolute Neuts (auto) 4.1 (2.0-8.3) x10*3/uL Absolute Nucleated RBC 0.000 (0.0-0.012) X10*3/uL Nucleated RBC % (auto) 0.0 (0.0-0.2) /100WBC Sodium 140 (135-145) mmol/L Potassium 4.1 (3.3-5.1) mmol/L Chloride 110 H (96-108) mmol/L Carbon Dioxide 21 L (22-29) mmol/L Anion Gap 13 (12-20) BUN 8 L (9-16) mg/dL Creatinine 0.66 (0.5-1.4) mg/dL Estim Creat Clear Calc 65.5 Estimated GFR > 60 Random Glucose 102 (60-115) mg/dL Calcium 10.0 (8.4-10.2) mg/dL Ethyl Alcohol < 10 mg/dL Independent Interpretation I performed an independent interpretation of an: Plain X-Ray Radiology Impression Discussion of test interpretation with radiology: I have reviewed the radiologist's reading. External Record Review External record reviewed: Inpatient record, Office record, Outpatient record, Prior outpatient labs, Prior outpatient radiology, Primary care record and Outside ED record Tests considered The following testing was considered but not selected: As above Prescription Management I considered prescription management with: Pain Medication Discharge Plan Discharge Clinical Impression: Rib fractures Patient Disposition: Home, Self-Care Instructions: Rib Fracture (ED) Additional Instructions: Your x-ray shows 2 fractures of your right 8th and 9th ribs Toradol as an anti-inflammatory/pain medicine please take with food. In addition use Lidoderm patches Use incentive spirometer as taught to you in the ED If symptoms persist or worsen/pain becomes unbearable you have fever cough return to the ED Follow-up with your doctor Woodard radiograf?a muestra 2 fracturas de la octava y novena mahi derecha. Toradol janki analg?sico o antiinflamatorio, t?becker con alimentos. Adem?s utilice parches Lidoderm. Utilice el espir?metro incentivador janki le ense?yesi en el servicio de urgencias. Si los s?ntomas persisten o empeoran/el dolor se vuelve insoportable, tiene fiebre, tos, regrese al servicio de urgencias. Seguimiento con woodard m?dico Prescriptions: New ketorolac 10 mg tablet 10 mg PO TID PRN (Reason: pain) 5 Days Qty: 15 0RF lidocaine [Lidoderm] 5 % adhesive patch,medicated 1 patch topical DAILY MDD remove after 12 hours PRN (Reason: pain) Qty: 30 0RF Rx Instructions: leave on most painful area for up to 12 hrs No Action diphenhydramine HCl [Benadryl] 25 mg capsule 25 mg PO TID PRN (Reason: allergic reaction) Qty: 20 0RF loratadine 10 mg tablet 10 mg PO DAILY PRN (Reason: allergic symptoms) Qty: 30 0RF sulfacetamide sodium 10 % drops 1 drp ophthalmic (eye) Q4H 5 Days Qty: 15 0RF alendronate 70 mg tablet 70 mg PO QWEEK Qty: 12 3RF atorvastatin 10 mg tablet 10 mg PO BEDTIME Qty: 90 8RF calcium carbonate 600 mg calcium (1,500 mg) tablet 1,200 mg PO DAILY Qty: 120 3RF lisinopril 5 mg tablet 5 mg PO DAILY Qty: 90 8RF naproxen 500 mg tablet 500 mg PO BID PRN (Reason: pain) Qty: 20 0RF Referrals: Physician,Unknown J [Primary Care Provider] - Stand Alone Forms: Work/School Release Interventions: ED Discharge Assessment Last Done: 05/02/23 16:34 Discharge Date/Time: 05/02/23 16:35 Print Language: [place]
[2023-05-02 14:52] LABS: MANUAL DIFF FLAG NO
[2023-05-02 14:53] LABS: Basophils Percent Auto 0.3 % (0-2); Eosinophils Absolute Auto 0.1 X10*3/uL (0.0-0.4); Eosinophils Percent Auto 2.2 % (0-4); Hemoglobin 13.5 g/dl (12.0-16.0); Imm Gran Abs Auto 0.01 X10*3/uL (0.00-0.03); Imm Gran Pct Auto 0.2 % (0.0-0.4); Lymphocytes Absolute Auto 1.6 X10*3/uL (1.2-4.9); Lymphocytes Percent Auto 24.9 % (20-40); Mean Corpuscular HGB Conc 33.8 g/dl (31.0-35.0); Mean Corpuscular Volume 94.8 fL (80.0-98.0); Mean Platelet Volume 10.1 fL (9.4-12.3); Monocytes Absolute Auto 0.5 X10*3/uL (0.1-1.2); Monocytes Percent Auto 8.3 % (2-11); Neutrophils Absolute Auto 4.1 x10*3/uL (2.0-8.3); Neutrophils Percent Auto 64.1 % (45-73); Platelet Count 252 X10*3/uL (160-400); Red Blood Count 4.22 X10*6/uL (4.20-5.50); Red Cell Distribution Width 12.6 % (11.0-16.0); White Blood Count 6.4 X10*3/uL (4.8-10.8)
[2023-05-02 15:20] LABS: Ethanol < 10 mg/dL
[2023-05-02 15:21] LABS: Anion Gap 13 (12-20); Blood Urea Nitrogen 8 mg/dL (9-16); Carbon Dioxide 21 mmol/L (22-29); Chloride 110 mmol/L (96-108); Creatinine Clr Calc Pharmacy 65.5; Estimated Glomerular Filt Rate > 60; Glucose Random 102 mg/dL (60-115); Potassium 4.1 mmol/L (3.3-5.1); Sodium 140 mmol/L (135-145)
[2023-05-02] MEDS: Lidocaine 4 % Patch ADH..PATCH 1 PATCH TRANSDERMA (16:23)
[2023-05-02] MEDS: Ketorolac Tromethamine 30 MG/ML VIAL IM (16:24)
== END 2023-05-02 16:35 | disposition home or self-care (01) ==
PROVIDERS: Registered Nurse Emergency; Emergency Provider Internal Medicine
DX: S22.41XA Multiple fractures of ribs, right side, initial encounter for closed fracture (principal); W19.XXXA Unspecified fall, initial encounter; R00.0 Tachycardia, unspecified; I10 Essential (primary) hypertension; E78.5 Hyperlipidemia, unspecified; Y93.01 Activity, walking, marching and hiking; Y92.480 Sidewalk as the place of occurrence of the external cause; Y99.9 Unspecified external cause status; Z79.899 Other long term (current) drug therapy
CPT/HCPCS: 36415; 71101; 72072; 80048; 80307; 85025; 96372; 99283; 99284; J1885

== ENCOUNTER 2023-05-04 13:16 | Emergency (ER) | payer MEDICARE, SELFPAY ==
[2023-05-04 13:23] VITALS: BP 169/87; PULSE 73; RESP 18; TEMP 37.2; O2SAT 97; BMI 24.5
--- NOTE | 2023-05-04 13:23 | ED.GENADULT ---
HPI - General Adult General Chief complaint: General Medical Stated complaint: broken ribs Time Seen by Provider: 05/04/23 13:58 Source: patient Mode of arrival: ambulatory Limitations: no limitations History of Present Illness HPI narrative: 72-year-old female with history of osteoporosis, HTN, glaucoma who presents to the ER for evaluation of ongoing right-sided posterior rib pain after a fall on 05/02 resulting in 2 broken ribs. She states she was seen here, discharged with pain medication which she has been taking with some improvement. The pain medication was Toradol and she still has some left. She states she is still having pain. It is worse with deep breaths, coughing and moving. She denies any fever, chills, nausea, vomiting, abdominal pain. No difficulty breathing or shortness of breath. MD complaint: Right posterior rib pain Onset (ago): day(s) (3) Location: back Radiation: non-radiation Severity: moderate Severity scale (1-10): 6 Quality: aching Pain Consistency: intermittent Relieving factors: medication and rest Exacerbating factors: movement Associated symptoms: denies other symptoms Treatments prior to arrival: none Related Data Previous Rx's Medication Instructions Recorded alendronate 70 mg tablet 70 mg PO QWEEK #12 tabs 10/16/22 atorvastatin 10 mg tablet 10 mg PO BEDTIME #90 tabs 10/16/22 calcium carbonate 600 mg calcium 1,200 mg (2 x 600 mg calcium 10/16/22 (1,500 mg) tablet (1,500 mg)) PO DAILY #120 tabs lisinopril 5 mg tablet 5 mg PO DAILY #90 tabs 10/16/22 naproxen 500 mg tablet 500 mg PO BID PRN pain #20 tabs 10/16/22 diphenhydramine HCl 25 mg capsule 25 mg PO TID PRN allergic reaction 11/16/22 (Benadryl) #20 caps loratadine 10 mg tablet 10 mg PO DAILY PRN allergic 11/16/22 symptoms #30 tabs sulfacetamide sodium 10 % eye drops 1 drp ophthalmic (eye) Q4H 5 days 11/16/22 #15 mL ketorolac 10 mg tablet 10 mg PO TID PRN pain 5 days #15 05/02/23 tabs lidocaine 5 % topical patch 1 patch topical DAILY PRN pain #30 05/02/23 (Lidoderm) ea acetaminophen 650 mg 650 mg PO Q8H PRN pain #20 tabs 05/04/23 tablet,extended release (Tylenol 8 Hour) Allergies Allergy/AdvReac Type Severity Reaction Status Date / Time oxycodone [From PERCOCET] Allergy Unknown ITCHY/RASH Verified 05/02/23 14:32 Review of Systems Review of Systems: Yes all other systems are reviewed and are negative [facility] Past Medical History Medical History Hyperlipidemia Osteoporosis Hypertension Surgical History H/O rectal polypectomy History of surgery History of breast surgery History of colonoscopy Family History Family History Father Colon cancer Mother CVD (cardiovascular disease) Brother Alcoholism Paternal Uncle Stomach cancer Sister Diabetes Kidney failure, acute Social History Social History Household Members: None Housing: Apartment Alcohol intake: never Patient Tobacco Use Status: Former Tobacco user Tobacco use type: Cigarette e-Cigarette/Vaping Use: Never Used Second Hand Smoke Exposure: No Advance Directives: No Advance Directives Information Provided: Yes service: No Current occupational status: employed Current occupation: [employer] Current occupational exposures/hazards: No Cognitive needs: No Hearing needs: No Vision needs: Yes Physical Exam ED Vital Signs: Vital Signs - 24 hr 05/04/23 13:23 Temperature 98.9 F Pulse Rate 73 Respiratory Rate 18 Blood Pressure 169/87 H Pulse Oximetry 97 Oxygen Delivery Method Room Air BMI result Body Mass Index 24.5 Appearance: Alert. Oriented X3. No acute distress. Head: normocephalic, atraumatic. Eyes: Pupils equal, round and reactive to light. ENT: Pharynx normal. No tonsillar swelling or exudate. Neck: Normal inspection. Neck supple. CVS: Normal heart rate and rhythm. Pulses normal. Respiratory: No respiratory distress. Breath sounds normal. lungs are clear throughout without any ecchymosis on the chest wall. She has some mild diffuse tenderness of the right-sided thoracic area, no crepitus. Abdomen: Soft and nontender. +BS x4 Skin: Skin warm and dry. Normal skin color. Normal skin turgor. No rashes. Extremities: No lower extremity edema. No joint swelling. Neuro/psych: Oriented X 3. grossly normal, nonfocal. Normal speech and cognition. Course Course Course Narrative: RME performed by Mara Perla PA-C. Patient is a 72 year old assigned female at presenting to the emergency department with persistent pain from her pervious 2 broken ribs. Patient placed back in the waiting room pending room availability. Medications Administered Discontinued Medications Generic Name Dose Route Start Last Admin Trade Name Herminio PRN Reason Stop Dose Admin Acetaminophen 975 mg 05/04/23 14:16 05/04/23 14:29 Acetaminophen 325 Mg Tablet PO 05/04/23 14:17 975 mg ONCE ONE Administration Ketorolac Tromethamine 15 mg 05/04/23 14:16 05/04/23 14:26 Ketorolac Tromethamine 15 Mg/Ml Vial IM 05/04/23 14:17 15 mg ONCE ONE Administration Lidocaine 1 patch 05/04/23 14:16 05/04/23 14:25 Lidocaine 4 % Patch Adh..Patch TRANSDERMA 05/04/23 14:17 1 patch ONCE ONE Administration Protocol Medical Decision Making Medical Decision Making MDM Narrative: 72-year-old female with history of osteoporosis, hypertension, hyperlipidemia, glaucoma presents to the ER for evaluation of ongoing rib pain after a fall 2 days ago with known right rib fractures 8. And 9. She was prescribed Toradol with some improvement. She is alert to oxycodone. She states the Toradol is helping some but the pain is not going away. She states it is worse with movement and coughing. On examination she has no ecchymosis on her back. Her lungs are clear throughout with normal oxygen saturations. Doubt pneumonia at this stage. No need for imaging today. Patient was counseled on expected course of rib fractures. Will add around the clock extra-strength Tylenol and encouraged use topical agents to help with pain. Will defer further narcotics given her allergies and age. She was encouraged follow-up with her primary care doctor. We discussed importance of deep breathing exercises to prevent pneumonia. She is stable for discharge home. Differential Diagnosis Differential Diagnoses: The differential diagnosis associated with the presentation includes rib fractures, PTX, PNA, pulmonary contusion Admission/Observation Consideration of admission/observation: Escalation of care including admission/observation considered multiple rib fx in elderly female, 2nd visit External Record Review External record reviewed: Outpatient record, Prior outpatient labs and Prior outpatient radiology Prescription Management I considered prescription management with: Pain Medication Chronic Conditions Patient?s care impacted by: Hypertension and Other (osteoporosis) Critical Care Time Critical Care Time Critical Care Time: No Discharge Plan Discharge Clinical Impression: Fracture of rib Qualifiers: Encounter type: subsequent encounter Rib fracture type: multiple ribs Fracture type: closed Laterality: right Fracture healing: with routine healing Qualified Code(s): S22.41XD - Multiple fractures of ribs, right side, subsequent encounter for fracture with routine healing Patient Disposition: Home, Self-Care Instructions: Rib Fracture (ED) Additional Instructions: Continue the previously prescribed Toradol. Once this runs out you can start ibuprofen 600 mg every 8 hours as needed for pain. Take this with food. Use topical lidocaine patches to the area to help with pain. Take the prescribed extra-strength Tylenol as directed. Rib fractures take several weeks to heal. Your going to have some pain. It is important to take deep breaths to exercise her lungs and prevent pneumonia. Follow-up with your primary care doctor. If you develop new or worsening symptoms call 911 or come back to the ER for further evaluation. Contin?e con el Toradol previamente recetado. Nuria vez que se acabe, puede comenzar con ibuprofeno 600 mg cada 8 horas seg?n sea necesario para el dolor. T?becker con comida. Use parches t?picos de lidoca?na en el ?portia para ayudar con el dolor. [place] el Tylenol extrafuerte recetado seg?n las indicaciones. Las fracturas de costillas tardan varias semanas en sanar. Vas a tener algo de dolor. Es importante respirar profundamente para ejercitar guille pulmones y prevenir la neumon?a. Dorian un seguimiento con moseley m?dico de atenci?n primaria. Si desarrolla s?ntomas nuevos o que empeoran, llame al 911 o regrese a la sabina de emergencias para nuria evaluaci?n adicional. Prescriptions: New acetaminophen [Tylenol 8 Hour] 650 mg tablet extended release 650 mg PO Q8H PRN (Reason: pain) Qty: 20 0RF No Action diphenhydramine HCl [Benadryl] 25 mg capsule 25 mg PO TID PRN (Reason: allergic reaction) Qty: 20 0RF loratadine 10 mg tablet 10 mg PO DAILY PRN (Reason: allergic symptoms) Qty: 30 0RF sulfacetamide sodium 10 % drops 1 drp ophthalmic (eye) Q4H 5 Days Qty: 15 0RF ketorolac 10 mg tablet 10 mg PO TID PRN (Reason: pain) 5 Days Qty: 15 0RF lidocaine [Lidoderm] 5 % adhesive patch,medicated 1 patch topical DAILY MDD remove after 12 hours PRN (Reason: pain) Qty: 30 0RF Rx Instructions: leave on most painful area for up to 12 hrs alendronate 70 mg tablet 70 mg PO QWEEK Qty: 12 3RF atorvastatin 10 mg tablet 10 mg PO BEDTIME Qty: 90 8RF calcium carbonate 600 mg calcium (1,500 mg) tablet 1,200 mg PO DAILY Qty: 120 3RF lisinopril 5 mg tablet 5 mg PO DAILY Qty: 90 8RF naproxen 500 mg tablet 500 mg PO BID PRN (Reason: pain) Qty: 20 0RF
[2023-05-04] MEDS: Lidocaine 4 % Patch ADH..PATCH 1 PATCH TRANSDERMA (14:25)
[2023-05-04] MEDS: Ketorolac Tromethamine 15 MG/ML VIAL IM (14:26)
[2023-05-04] MEDS: Acetaminophen 325 MG TABLET 975 MG PO (14:29)
== END 2023-05-04 15:18 | disposition home or self-care (01) ==
PROVIDERS: Emergency Provider Emergency Medicine
DX: S22.41XA Multiple fractures of ribs, right side, initial encounter for closed fracture (principal); R07.81 Pleurodynia; W01.0XXA Fall on same level from slipping, tripping and stumbling without subsequent striking against object, initial encounter; Y93.9 Activity, unspecified; Y92.9 Unspecified place or not applicable; Y99.9 Unspecified external cause status; Z79.899 Other long term (current) drug therapy; Z87.891 Personal history of nicotine dependence
CPT/HCPCS: 96372; 99284; J1885

== ENCOUNTER 2023-05-08 13:03 | Outpatient (AMB) | payer MEDICARE, SELFPAY ==
[2023-05-08 13:08] VITALS: BP 126/72; PULSE 77; O2SAT 97; BMI 24.3
--- NOTE | 2023-05-08 13:08 | MHC.PC.OV ---
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 Allergies oxycodone [From PERCOCET] Allergy (Unknown, Verified 05/08/23 13:08) ITCHY/RASH Medication List - Last Reconciled 05/08/23 by Mike Carlin MD acetaminophen ER (Tylenol 8 Hour) 650 mg PO Q8H PRN alendronate 70 mg PO QWEEK atorvastatin 10 mg PO BEDTIME calcium carbonate 1,200 mg (2 x 600 mg calcium (1,500 mg)) PO DAILY diphenhydramine HCl (Benadryl) 25 mg PO TID PRN ketorolac 10 mg PO TID PRN 5 days lidocaine 5% (Lidoderm) 1 patch topical DAILY PRN MDD remove after 12 hours lisinopril 5 mg PO DAILY loratadine 10 mg PO DAILY PRN naproxen 500 mg PO BID PRN sulfacetamide sodium 10% 1 drp ophthalmic (eye) Q4H 5 days Tobacco use date assessed: 10/16/22 Fall risk assessment: No Falls in past year Last assessed Fall Risk: 05/08/23 Dental Screening Dental Screen Date: 05/08/23 Did you have a dental visit in the last 12 months?: No Did you have a dental problem in the last 6 months where you did not have access to dental care?: No Was dental information given to patient?: Patient has dentist [place] [facility] [place] HPI Details tripped, fell and fractured 2 ribs on the right 3 days ago; will need to be oow at least 2 weeks [facility] Medical History (Updated 05/08/23 @ 13:48 by Mike Carlin MD) Rib fractures Hyperlipidemia Osteoporosis Hypertension Surgical History H/O rectal polypectomy History of surgery History of breast surgery History of colonoscopy Family History Father Colon cancer Mother CVD (cardiovascular disease) Brother Alcoholism Paternal Uncle Stomach cancer Sister Diabetes Kidney failure, acute Social History Household Members: None Housing: Apartment Alcohol intake: never Patient Tobacco Use Status: Former Tobacco user Tobacco use type: Cigarette e-Cigarette/Vaping Use: Never Used Second Hand Smoke Exposure: No service: No Current occupational status: employed Current occupation: [employer] Current occupational exposures/hazards: No Cognitive needs: No Hearing needs: No Vision needs: Yes Questionnaire PHQ-9 Over the last 2 weeks, how often have you been bothered by any of the following problems? 1. Little interest or pleasure in doing things: not at all 2. Feeling down, depressed, or hopeless: not at all 3. Trouble falling or staying asleep, or sleeping too much: not at all 4. Feeling tired or having little energy: not at all 5. Poor appetite or overeating: not at all 6. Feeling bad about yourself - or that you are a failure or have let yourself or your family down: not at all 7. Trouble concentrating on things, such as reading the newspaper or watching television: not at all 8. Moving or speaking so slowly that other people could have noticed. Or the opposite - being so fidgety or restless that you have been moving around a lot more than usual: not at all 9. Thoughts that you would be better off or of hurting yourself in some way: not at all Total score: 0 Depression Screening Interpretation: Negative Depression Screening Done: Yes Source: Developed by Drs. Shaun Law, Julissa Sellers, Danny Lopez and colleagues, with an educational manisha from [employer]. Thrive Questionnaire Date Thrive assessed: 10/16/22 AUDIT C Alcohol Use Questionnaire (AUDIT-C) 1. How often do you have a drink containing alcohol?: Never Total Score: 0 Score Reviewed/Action Taken: Yes NUHA-7 AMB Questionnaire NUHA-7 Date NUHA - 7 assessed: 10/16/22 Source: Developed by Drs. Shaun Law, Julissa Sellers, Danny Lopez and colleagues, with an educational manisha from [employer]. Review of Systems Const Denies chills, Denies headache(s) and Denies weight loss ENT Denies headache(s) Card Denies chest pain, Denies syncope, Denies irregular heart rhythm and Denies dyspnea Resp Denies chest congestion, Denies cough and Denies dyspnea GI Denies abdominal pain, Denies change in stool character, Denies nausea and Denies vomiting Musc Denies deformity and Denies joint swelling Neuro Denies syncope and Denies headache(s) Physical exam (Primary Care) Vital Signs: Last Vital Signs Pulse 77 05/08/23 13:08 BP 126/72 05/08/23 13:08 Pulse Ox 97 05/08/23 13:08 Oxygen Delivery Method Room Air 05/08/23 13:08 BMI result Body Mass Index 24.3 Tobacco/Smoking Status: Tobacco use Status Tobacco use date assessed 10/16/22 05/08/23 13:09 Patient Tobacco Use Status Former Tobacco user 05/08/23 13:09 Tobacco use type Cigarette 05/08/23 13:09 e-Cigarette/Vaping Use Never Used 05/08/23 13:09 PHQ-9: PHQ-9 Score PHQ-9: Total score 0 05/08/23 13:09 Depression Screening Interpretation: Negative Thrive Assessment: Date of Thrive Assessment Date Thrive assessed 10/16/22 05/08/23 13:09 Const General: cooperative, comfortable, no acute distress and alert Neck Neck: Yes no lymphadenopathy Thyroid: Thyroid normal Resp Effort & Inspection: normal respiratory effort Auscultation: clear to auscultation bilaterally Percussion: percussion normal Cardio Jugular venous distension: no JVD Palpation: normal PMI Rate: regular rate Rhythm: regular rhythm Heart sounds: S1 normal heart sound present and S2 normal heart sound present GI Inspection: Yes normal to inspection Palpation (GI): No hepatosplenomegaly present Skin General skin exam: no rashes or lesions noted Extrem General: Yes no clubbing, cyanosis or edema Assessment and Plan Assessment & Plan (1) Rib fractures: Code(s): S22.49XA - Multiple fractures of ribs, unspecified side, initial encounter for closed fracture Plan: rest and rx as needed Coding Level of Care Code Est Pt Level 3 (85638) Diagnoses Rib fractures S22.49XA
== END 2023-05-08 13:27 | disposition home or self-care (01) ==
PROVIDERS: Visit Provider Internal Medicine
DX: S22.41XA Multiple fractures of ribs, right side, initial encounter for closed fracture (principal)
CPT/HCPCS: 99213

== ENCOUNTER 2023-05-22 13:18 | Outpatient (AMB) | payer MEDICARE, SELFPAY ==
[2023-05-22 13:20] VITALS: BP 120/76; PULSE 106; O2SAT 98; BMI 24.3
--- NOTE | 2023-05-22 13:20 | A.OFFPC_ITS ---
Vital Signs 05/22/23 13:20 Height 5 ft 2 in Weight 133 lb BMI 24.3 BP 120/76 Blood Pressure Location Lt brachial Position Sitting Pulse 106 H Pulse Source Pulse Oximeter Pulse Oximetry (%) 98 Oxygen Delivery Method Room Air Intake Visit Reasons: 2 weeks f/u Quality Assurance Assistant: Not Required per policy Accompanied by: Self / Same As Patient Allergies oxycodone [From PERCOCET] Allergy (Unknown, Verified 05/08/23 13:08) ITCHY/RASH Medication List - Last Reconciled 05/22/23 by Mike Carlin MD acetaminophen ER (Tylenol 8 Hour) 650 mg PO Q8H PRN alendronate 70 mg PO QWEEK atorvastatin 10 mg PO BEDTIME calcium carbonate 1,200 mg (2 x 600 mg calcium (1,500 mg)) PO DAILY diphenhydramine HCl (Benadryl) 25 mg PO TID PRN ketorolac 10 mg PO TID PRN 5 days lidocaine 5% (Lidoderm) 1 patch topical DAILY PRN MDD remove after 12 hours lisinopril 5 mg PO DAILY loratadine 10 mg PO DAILY PRN naproxen 500 mg PO BID PRN sulfacetamide sodium 10% 1 drp ophthalmic (eye) Q4H 5 days Tobacco use date assessed: 10/16/22 Fall risk assessment: 1 Fall in past year Last assessed Fall Risk: 05/22/23 Dental Screening Dental Screen Date: 05/22/23 Did you have a dental visit in the last 12 months?: Yes Did you have a dental problem in the last 6 months where you did not have access to dental care?: No Was dental information given to patient?: Patient has dentist HPI 2 weeks f/u HPI Details continues with pain from rib fractures; not ready to return to work [facility] Medical History Rib fractures Hyperlipidemia Osteoporosis Hypertension Surgical History H/O rectal polypectomy History of surgery History of breast surgery History of colonoscopy Family History Father Colon cancer Mother CVD (cardiovascular disease) Brother Alcoholism Paternal Uncle Stomach cancer Sister Diabetes Kidney failure, acute Social History (Reviewed 05/22/23 @ 13:22 by ARIK Gu Household Members: None Housing: Apartment Alcohol intake: never Patient Tobacco Use Status: Former Tobacco user Tobacco use type: Cigarette e-Cigarette/Vaping Use: Never Used Second Hand Smoke Exposure: No service: No 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 1. Little interest or pleasure in doing things: not at all 2. Feeling down, depressed, or hopeless: not at all 3. Trouble falling or staying asleep, or sleeping too much: not at all 4. Feeling tired or having little energy: not at all 5. Poor appetite or overeating: not at all 6. Feeling bad about yourself - or that you are a failure or have let yourself or your family down: not at all 7. Trouble concentrating on things, such as reading the newspaper or watching television: not at all 8. Moving or speaking so slowly that other people could have noticed. Or the opposite - being so fidgety or restless that you have been moving around a lot more than usual: not at all 9. Thoughts that you would be better off or of hurting yourself in some way: not at all Total score: 0 Depression Screening Interpretation: Negative Depression Screening Done: Yes Source: Developed by Drs. Shaun Law, Danny Sue and colleagues, with an educational manisha from [employer]. Thrive Questionnaire Date Thrive assessed: 10/16/22 AUDIT C Alcohol Use Questionnaire (AUDIT-C) 1. How often do you have a drink containing alcohol?: Never Total Score: 0 Score Reviewed/Action Taken: Yes NUHA-7 AMB Questionnaire NUHA-7 Date NUHA - 7 assessed: 10/16/22 Source: Developed by Drs. Shaun Law, Danny Sue and colleagues, with an educational manisha from [employer]. Review of Systems Const Denies chills, Denies headache(s) and Denies weight loss ENT Denies headache(s) Card Denies chest pain, Denies syncope, Denies irregular heart rhythm and Denies dyspnea Resp Denies chest congestion, Denies cough and Denies dyspnea GI Denies abdominal pain, Denies change in stool character, Denies nausea and Denies vomiting Musc Denies deformity and Denies joint swelling Neuro Denies syncope and Denies headache(s) Physical exam (Primary Care) Vital Signs: Last Vital Signs Pulse 106 H 05/22/23 13:20 BP 120/76 05/22/23 13:20 Pulse Ox 98 05/22/23 13:20 Oxygen Delivery Method Room Air 05/22/23 13:20 BMI result Body Mass Index 24.3 Tobacco/Smoking Status: Tobacco use Status Tobacco use date assessed 10/16/22 05/22/23 13:22 Patient Tobacco Use Status Former Tobacco user 05/22/23 13:22 Tobacco use type Cigarette 05/22/23 13:22 e-Cigarette/Vaping Use Never Used 05/22/23 13:22 PHQ-9: PHQ-9 Score PHQ-9: Total score 0 05/22/23 13:22 Depression Screening Interpretation: Negative Thrive Assessment: Date of Thrive Assessment Date Thrive assessed 10/16/22 05/22/23 13:22 Const General: cooperative, comfortable, no acute distress and alert Neck Neck: Yes no lymphadenopathy Thyroid: Thyroid normal Resp Effort & Inspection: normal respiratory effort Auscultation: clear to auscultation bilaterally Percussion: percussion normal Cardio Jugular venous distension: no JVD Palpation: normal PMI Rate: regular rate Rhythm: regular rhythm Heart sounds: S1 normal heart sound present and S2 normal heart sound present GI Inspection: Yes normal to inspection Palpation (GI): No hepatosplenomegaly present Skin General skin exam: no rashes or lesions noted Extrem General: Yes no clubbing, cyanosis or edema Assessment and Plan Assessment & Plan (1) Rib fractures: Code(s): S22.49XA - Multiple fractures of ribs, unspecified side, initial encounter for closed fracture Plan: cont rx and oow Medications: New tramadol 50 mg PO Q8H 20 tabs 0RF pain tramadol 50 mg PO Q8H 20 tabs 0RF pain tramadol 50 mg PO Q8H 20 tabs 0RF pain Coding Level of Care Code Est Pt Level 3 (02284) Diagnoses Rib fractures S22.49XA
== END 2023-05-22 13:53 | disposition home or self-care (01) ==
PROVIDERS: Visit Provider Internal Medicine
DX: S22.41XD Multiple fractures of ribs, right side, subsequent encounter for fracture with routine healing (principal)
CPT/HCPCS: 99213

== ENCOUNTER 2023-06-16 13:09 | Outpatient (AMB) | payer MEDICARE, SELFPAY ==
[2023-06-16 13:13] VITALS: BP 122/70; PULSE 100; O2SAT 98; BMI 24.8
--- NOTE | 2023-06-16 13:13 | MHC.PC.OV ---
Vital Signs 06/16/23 13:13 Height 5 ft 2 in Weight 135 lb 8 oz BMI 24.8 BP 122/70 Blood Pressure Location Lt brachial Position Sitting Pulse 100 Pulse Source Pulse Oximeter Pulse Oximetry (%) 98 Oxygen Delivery Method Room Air Intake Visit Reasons: Follow Up Information Systems Coordinator Required: No Stave And Bolt Equalizer: Not Required per policy Accompanied by: Self / Same As Patient Allergies oxycodone [From PERCOCET] Allergy (Unknown, Verified 06/16/23 13:13) ITCHY/RASH Medication List - Last Reconciled 06/16/23 by Mike Carlin MD acetaminophen ER (Tylenol 8 Hour) 650 mg PO Q8H PRN alendronate 70 mg PO QWEEK atorvastatin 10 mg PO BEDTIME calcium carbonate 1,200 mg (2 x 600 mg calcium (1,500 mg)) PO DAILY diphenhydramine HCl (Benadryl) 25 mg PO TID PRN ketorolac 10 mg PO TID PRN 5 days lidocaine 5% (Lidoderm) 1 patch topical DAILY PRN MDD remove after 12 hours lisinopril 5 mg PO DAILY loratadine 10 mg PO DAILY PRN naproxen 500 mg PO BID PRN sulfacetamide sodium 10% 1 drp ophthalmic (eye) Q4H 5 days tramadol 50 mg PO Q8H tramadol 50 mg PO Q8H tramadol 50 mg PO Q8H Tobacco use date assessed: 10/16/22 Fall risk assessment: 1 Fall in past year Last assessed Fall Risk: 06/16/23 Dental Screening Dental Screen Date: 06/16/23 Did you have a dental visit in the last 12 months?: Yes Did you have a dental problem in the last 6 months where you did not have access to dental care?: No Was dental information given to patient?: Patient has dentist HPI Follow Up HPI Details f/u rib fx; improving but still not ready to rtw due to pain PFSH Medical History Rib fractures Hyperlipidemia Osteoporosis Hypertension Surgical History H/O rectal polypectomy History of surgery History of breast surgery History of colonoscopy Family History Father Colon cancer Mother CVD (cardiovascular disease) Brother Alcoholism Paternal Uncle Stomach cancer Sister Diabetes Kidney failure, acute Social History Household Members: None Housing: Apartment Alcohol intake: never Patient Tobacco Use Status: Former Tobacco user Tobacco use type: Cigarette e-Cigarette/Vaping Use: Never Used Second Hand Smoke Exposure: No service: No Current occupational status: employed 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 Shaun Law, Julissa Sellers, Danny Lopez and colleagues, with an educational manisha from [employer]. Review of Systems Const Denies chills, Denies headache(s) and Denies weight loss ENT Denies headache(s) Card Denies chest pain, Denies syncope, Denies irregular heart rhythm and Denies dyspnea Resp Denies chest congestion, Denies cough and Denies dyspnea GI Denies abdominal pain, Denies change in stool character, Denies nausea and Denies vomiting Musc Denies deformity and Denies joint swelling Neuro Denies syncope and Denies headache(s) Physical exam (Primary Care) Vital Signs: Last Vital Signs Pulse 100 06/16/23 13:13 BP 122/70 06/16/23 13:13 Pulse Ox 98 06/16/23 13:13 Oxygen Delivery Method Room Air 06/16/23 13:13 BMI result Body Mass Index 24.8 Tobacco/Smoking Status: Tobacco use Status Tobacco use date assessed 10/16/22 06/16/23 13:14 Patient Tobacco Use Status Former Tobacco user 06/16/23 13:14 Tobacco use type Cigarette 06/16/23 13:14 e-Cigarette/Vaping Use Never Used 06/16/23 13:14 Thrive Assessment: Date of Thrive Assessment Date Thrive assessed 10/16/22 06/16/23 13:14 Const General: cooperative, comfortable, no acute distress and alert Neck Neck: Yes no lymphadenopathy Thyroid: Thyroid normal Resp Effort & Inspection: normal respiratory effort Auscultation: clear to auscultation bilaterally Percussion: percussion normal Cardio Jugular venous distension: no JVD Palpation: normal PMI Rate: regular rate Rhythm: regular rhythm Heart sounds: S1 normal heart sound present and S2 normal heart sound present GI Inspection: Yes normal to inspection Palpation (GI): No hepatosplenomegaly present Skin General skin exam: no rashes or lesions noted Extrem General: Yes no clubbing, cyanosis or edema Assessment and Plan Assessment & Plan (1) Rib fractures: Code(s): S22.49XA - Multiple fractures of ribs, unspecified side, initial encounter for closed fracture Plan: oow 2 weeks Coding Level of Care Code Est Pt Level 3 (52414) Diagnoses Rib fractures S22.49XA
== END 2023-06-16 13:34 | disposition home or self-care (01) ==
PROVIDERS: Visit Provider Internal Medicine
DX: S22.41XA Multiple fractures of ribs, right side, initial encounter for closed fracture (principal)
CPT/HCPCS: 99213

== ENCOUNTER 2023-06-22 08:25 | Outpatient (REF) | payer MEDICARE, SELFPAY ==
[2023-06-22 10:48] LABS: Cholesterol 175 mg/dL (<200); Glucose Fasting 145 mg/dL (60-99); HDL Cholesterol 30 mg/dL (>40); LDL Cholesterol Calculated 121 mg/dL (<100); Triglycerides 124 mg/dL (<150)
[2023-06-22 11:05] LABS: Estimated Average Glucose 154 mg/dL
== END 2023-06-22 08:26 | disposition home or self-care (01) ==
LOC: HO.LAB 08:25
PROVIDERS: PCP Internal Medicine; Visit Provider Internal Medicine
DX: R73.9 Hyperglycemia, unspecified (principal); E78.5 Hyperlipidemia, unspecified
CPT/HCPCS: 36415; 80061; 82947; 83036

== ENCOUNTER 2023-06-23 13:12 | Outpatient (AMB) | payer MEDICARE, SELFPAY ==
--- NOTE | 2023-06-23 13:15 | MHC.PC.OV ---
Vital Signs 06/23/23 13:16 Height 5 ft 2 in Weight 135 lb BMI 24.7 BP 122/86 Blood Pressure Location Lt brachial Position Sitting Pulse 96 Pulse Source Pulse Oximeter Pulse Oximetry (%) 98 Oxygen Delivery Method Room Air Intake Visit Reasons: 4 month f/u Auto Damage Estimator Required: No Trauma Nurse: Not Required per policy Accompanied by: Self / Same As Patient Allergies oxycodone [From PERCOCET] Allergy (Unknown, Verified 06/23/23 13:16) ITCHY/RASH Tobacco use date assessed: 10/16/22 Fall risk assessment: No Falls in past year Last assessed Fall Risk: 06/23/23 Dental Screening Dental Screen Date: 06/23/23 Did you have a dental visit in the last 12 months?: Yes Did you have a dental problem in the last 6 months where you did not have access to dental care?: No Was dental information given to patient?: Patient has dentist HPI 4 month f/u HPI Details hyperlip on rx; doing well PFSH Medical History Rib fractures Hyperlipidemia Osteoporosis Hypertension Surgical History H/O rectal polypectomy History of surgery History of breast surgery History of colonoscopy Family History Father Colon cancer Mother CVD (cardiovascular disease) Brother Alcoholism Paternal Uncle Stomach cancer Sister Diabetes Kidney failure, acute Social History Household Members: None Housing: Apartment Alcohol intake: never Patient Tobacco Use Status: Former Tobacco user Tobacco use type: Cigarette e-Cigarette/Vaping Use: Never Used Second Hand Smoke Exposure: No service: No 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 Shaun Lwa, Julissa Sellers, Danny Lopez and colleagues, with an educational manisha from [employer]. Review of Systems Const Denies chills, Denies headache(s) and Denies weight loss ENT Denies headache(s) Card Denies chest pain, Denies syncope, Denies irregular heart rhythm and Denies dyspnea Resp Denies chest congestion, Denies cough and Denies dyspnea GI Denies abdominal pain, Denies change in stool character, Denies nausea and Denies vomiting Musc Denies deformity and Denies joint swelling Neuro Denies syncope and Denies headache(s) Physical exam (Primary Care) Vital Signs: Last Vital Signs Pulse 96 06/23/23 13:16 BP 122/86 06/23/23 13:16 Pulse Ox 98 06/23/23 13:16 Oxygen Delivery Method Room Air 06/23/23 13:16 BMI result Body Mass Index 24.7 Tobacco/Smoking Status: Tobacco use Status Tobacco use date assessed 10/16/22 06/23/23 13:16 Patient Tobacco Use Status Former Tobacco user 06/23/23 13:16 Tobacco use type Cigarette 06/23/23 13:16 e-Cigarette/Vaping Use Never Used 06/23/23 13:16 Thrive Assessment: Date of Thrive Assessment Date Thrive assessed 10/16/22 06/23/23 13:16 Const General: cooperative, comfortable, no acute distress and alert Neck Neck: Yes no lymphadenopathy Thyroid: Thyroid normal Resp Effort & Inspection: normal respiratory effort Auscultation: clear to auscultation bilaterally Percussion: percussion normal Cardio Jugular venous distension: no JVD Palpation: normal PMI Rate: regular rate Rhythm: regular rhythm Heart sounds: S1 normal heart sound present and S2 normal heart sound present GI Inspection: Yes normal to inspection Palpation (GI): No hepatosplenomegaly present Skin General skin exam: no rashes or lesions noted Extrem General: Yes no clubbing, cyanosis or edema Assessment and Plan Assessment & Plan (1) Hyperlipidemia: Code(s): E78.5 - Hyperlipidemia, unspecified Plan: stable; same rx Coding Level of Care Code Est Pt Level 3 (59816) Diagnoses Hyperlipidemia E78.5
[2023-06-23 13:16] VITALS: BP 122/86; PULSE 96; O2SAT 98; BMI 24.7
== END 2023-06-23 13:30 | disposition home or self-care (01) ==
PROVIDERS: Visit Provider Internal Medicine
DX: E78.5 Hyperlipidemia, unspecified (principal)
CPT/HCPCS: 99213

== ENCOUNTER 2023-07-16 11:53 | Emergency (ER) | payer MEDICARE, SELFPAY ==
[2023-07-16 13:06] VITALS: BP 154/79; PULSE 88; RESP 16; TEMP 36.8; O2SAT 95; BMI 24.7
--- NOTE | 2023-07-16 13:17 | ED.URI ---
HPI - URI/Sore Throat General Chief Complaint: Upper Respiratory Symptoms Stated Complaint: Asthma Time Seen by Provider: 07/16/23 14:25 Source: patient and RN notes reviewed Mode of arrival: ambulatory Limitations: language barrier History of Present Illness HPI Narrative: This is a 72-year-old Guamanian-speaking female, history of osteoporosis, HTN, glaucoma who presents to the ER for evaluation of cough x8 days. Patient reports that 8 days ago she developed a dry cough. Patient also reports chills. She denies any fevers, ear pain, or sore throat. She states that she has a slight ?tickle? in her throat. She denies chest pain, palpitations, abdominal pain, nausea, vomiting or diarrhea. Denies taking any medications at home to treat her current symptoms. She states that she has coworkers better currently sick right now. No other complaints or concerns at this time. MD elicited complaint: cough Onset (ago): day(s) Consistency: constant Severity: mild Able to tolerate fluids by mouth: Yes Exacerbating factors: nothing Relieving factors: nothing Context: sick contacts Associated symptoms: chills, sore throat and cough Treatments prior to arrival: none Related Data Previous Rx's Medication Instructions Recorded alendronate 70 mg tablet 70 mg PO QWEEK #12 tabs 10/16/22 atorvastatin 10 mg tablet 10 mg PO BEDTIME #90 tabs 10/16/22 calcium carbonate 600 mg calcium 1,200 mg (2 x 600 mg calcium 10/16/22 (1,500 mg) tablet (1,500 mg)) PO DAILY #120 tabs lisinopril 5 mg tablet 5 mg PO DAILY #90 tabs 10/16/22 naproxen 500 mg tablet 500 mg PO BID PRN pain #20 tabs 10/16/22 diphenhydramine HCl 25 mg capsule 25 mg PO TID PRN allergic reaction 11/16/22 (Benadryl) #20 caps loratadine 10 mg tablet 10 mg PO DAILY PRN allergic 11/16/22 symptoms #30 tabs sulfacetamide sodium 10 % eye drops 1 drp ophthalmic (eye) Q4H 5 days 11/16/22 #15 mL ketorolac 10 mg tablet 10 mg PO TID PRN pain 5 days #15 05/02/23 tabs lidocaine 5 % topical patch 1 patch topical DAILY PRN pain #30 05/02/23 (Lidoderm) ea tramadol 50 mg tablet 50 mg PO Q8H pain #20 tabs 05/22/23 tramadol 50 mg tablet 50 mg PO Q8H pain #20 tabs 05/22/23 tramadol 50 mg tablet 50 mg PO Q8H pain #20 tabs 05/22/23 acetaminophen 650 mg 650 mg PO Q8H PRN pain #20 tabs 06/17/23 tablet,extended release (Tylenol 8 Hour) benzonatate 200 mg capsule 200 mg PO TID 7 days #21 caps 07/16/23 Allergies Allergy/AdvReac Type Severity Reaction Status Date / Time oxycodone [From PERCOCET] Allergy Unknown ITCHY/RASH Verified 06/23/23 13:16 Review of Systems Review of Systems: Yes all other systems are reviewed and are negative Constitutional: Constitutional: Reports as per [facility] Past Medical History Attestation statement: The following information was validated with the patient. Onset Date is defined in the Problem List Problems that require an onset date and time if occurred within 24 hrs of arrival to the ED Aortic Dissection and Rupture; Neurologic impairment; Cardiopulmonary Arrest; Endotracheal Intubation; Insertion or Replacement of Mechanical Circulatory Assist Device Medical History Rib fractures Hyperlipidemia Osteoporosis Hypertension Surgical History H/O rectal polypectomy History of surgery History of breast surgery History of colonoscopy Family History Family History Father Colon cancer Mother CVD (cardiovascular disease) Brother Alcoholism Paternal Uncle Stomach cancer Sister Diabetes Kidney failure, acute Social History Social History Household Members: None Housing: Apartment Alcohol intake: never Patient Tobacco Use Status: Former Tobacco user Tobacco use type: Cigarette e-Cigarette/Vaping Use: Never Used Second Hand Smoke Exposure: No Advance Directives: No Advance Directives Information Provided: Yes service: No Current occupational status: employed Current occupation: [employer] Current occupational exposures/hazards: No Cognitive needs: No Hearing needs: No Vision needs: Yes Physical Exam Vital Signs: Vital Signs: Last Vital Signs Temp 97.6 F 07/16/23 16:03 Pulse 88 07/16/23 16:03 Resp 18 07/16/23 16:03 BP 131/83 07/16/23 16:03 Pulse Ox 95 07/16/23 16:03 O2 Del Method Room Air 07/16/23 16:03 BMI result Body Mass Index 24.7 Const: General: cooperative, comfortable and no acute distress Orientation/consciousness: patient oriented x3 Limitations: no limitations HEENT: Head: Yes normal to inspection, Yes normocephalic and Yes atraumatic Ears: hearing grossly normal bilaterally and TM's normal bilaterally General nose exam: Normal external nose present Face and sinus: Yes normal facial exam Mouth: Normal oral and palatal mucosa present, oropharynx normal and moist mucous membranes Throat: Yes posterior oropharynx normal, Yes tonsils normal and Yes uvula midline Eyes: General: appearance normal, both eyes and all related structures Eyelids: Yes eyelids normal Conjunctivae: conjunctivae normal Sclerae: sclerae normal Pupils: Equal, round and reactive pupils present EOM: EOMs intact bilaterally Neck: Neck: Yes normal visual inspection, Yes full ROM and Yes no lymphadenopathy Lymphatic: no lymphadenopathy noted Chest: Chest palpation & inspection: normal inspection of the chest Resp: Other: Lung sounds diminished throughout all lung randall, no crackles, rales, rhonchi Effort & Inspection: normal respiratory effort and able to speak in complete sentences Cardio: Rate: regular rate Rhythm: regular rhythm Heart sounds: S1 normal heart sound present and S2 normal heart sound present GI: Inspection: Yes normal to inspection Skin: General skin exam: no rashes or lesions noted Trauma: no lacerations or abrasions Wounds: no wounds Neuro: General: patient oriented x3 and moves all extremities Cranial nerves: Yes Equal, round and reactive pupils present Extrem: General: Yes normal to inspection Right upper extremity: normal to inspection Left upper extremity: normal to inspection Right lower extremity: normal to inspection Left lower extremity: normal to inspection Course Reevaluation(s) Reevaluation #1: RME: Cough and fever for a few days. Patient exposed at work. Slight shortness of breath. PE slight wheezing Medications Administered Discontinued Medications Generic Name Dose Route Start Last Admin Trade Name Freq PRN Reason Stop Dose Admin Albuterol Sulfate 4 puff 07/16/23 15:22 07/16/23 15:25 Albuterol Sulfate 90 Mcg 8 Gm Inhaler INHALE 07/16/23 15:23 4 puff ONCE ONE Administration Medical Decision Making Medical Decision Making [facility] Narrative: This is a 72-year-old female presenting to the emergency department complaints of dry cough x8 days. Also endorsing chills and tickle in her throat. On arrival, mildly hypertensive at 154/79, this improved to 131/83, oxygen saturation 95% on room air. Initially she had diminished lung sounds throughout all lung randall however this improved after receiving albuterol. Symptoms consistent with viral URI. She tested negative for COVID, RSV, and flu. There is a slight right pleural effusion which has been seen on previous chest x-rays, this remains stable. Patient reports that her symptoms improved after receiving albuterol. Will discharge patient on Tessalon, encouraged increasing hydration status and given return precautions if any new or worsening symptoms occur. Patient understands and agrees with plan. Patient stable for discharge Differential Diagnosis Differential Diagnoses: The differential diagnosis associated with the presentation includes URI, bronchitis, pneumonia, COVID Lab Data [facility] Lab Attestation statement: I reviewed the patient's lab results. Negative Labs: Lab Results 07/16/23 Range/Units 13:24 Influenza Type A (PCR) NEGATIVE (Negative) Influenza Type B (PCR) NEGATIVE (Negative) RSV RNA Qual (PCR) NEGATIVE (Negative) SARS-CoV-2 RNA (RT-PCR) NEGATIVE (Negative) Radiology Impression Discussion of test interpretation with radiology: I have reviewed the radiologist's reading. Radiologist Impression: [address] [address] XRay Report Signed Patient: Chandni Luther MR#: [id number] : 1950 Acct:[id number] Age/Sex: 72 / F ADM Date: 07/16/23 Loc: .ED Attending Dr: Ordering Physician: Ramírez White MD Date of Service: 07/16/23 Procedure(s): XR chest 2V Accession Number(s): [id number] cc: Mike Carlin MD; Ramírez White MD~ EXAMINATION: XR CHEST CLINICAL INFORMATION: Wheezing and cough COMPARISON: Chest and RIBS 05/02/2023 TECHNIQUE: 2 views of the chest were obtained. FINDINGS: A trace right pleural effusion is again seen. Biconvex thoracolumbar scoliosis with degenerative changes again noted. No acute significant abnormality is noted involving the heart, lungs, mediastinum, bony thorax or soft tissues. XR/XR chest 2V IMPRESSION: Trace right pleural effusion. No acute intrathoracic disease. Dictated By: Ramírez Ashley MD Chronic Conditions Patient?s care impacted by: Hypertension Discharge Plan Discharge Clinical Impression: Upper respiratory infection Patient Disposition: Home, Self-Care Instructions: Upper Respiratory Infection (ED) Additional Instructions: Your seen in the emergency department due to a cough. Your symptoms are likely due to a virus. You tested negative for COVID, RSV, and flu. Your chest x-ray did not show a pneumonia. Drink plenty of fluids and get plenty of rest. Hot tea with honey, and warm soups can help with your symptoms. You may take Tylenol as needed. If any new or worsening symptoms occur including but not limited to shortness of breath or chest pain, please return for re-evaluation. Lo atendieron en el departamento de emergencias debido a tae tos. Es probable que guille s?ntomas se deban a un virus. Las pruebas de COVID, RSV y gripe dieron negativo. Woodard radiograf?a de t?rax no mostr? neumon?a. Janette muchos l?quidos y descanse mucho. El t? caliente con miel y las sopas calientes pueden ayudar con guille s?ntomas. Puede joanna Tylenol seg?n sea necesario. Si se presenta alg?n s?ntoma nuevo o que empeora, incluidos, entre otros, dificultad para respirar o dolor en el pecho, regrese para tae nueva evaluaci?n. Prescriptions: New benzonatate 200 mg capsule 200 mg PO TID 7 Days Qty: 21 0RF No Action acetaminophen [Tylenol 8 Hour] 650 mg tablet extended release 650 mg PO Q8H PRN (Reason: pain) Qty: 20 0RF diphenhydramine HCl [Benadryl] 25 mg capsule 25 mg PO TID PRN (Reason: allergic reaction) Qty: 20 0RF loratadine 10 mg tablet 10 mg PO DAILY PRN (Reason: allergic symptoms) Qty: 30 0RF sulfacetamide sodium 10 % drops 1 drp ophthalmic (eye) Q4H 5 Days Qty: 15 0RF ketorolac 10 mg tablet 10 mg PO TID PRN (Reason: pain) 5 Days Qty: 15 0RF lidocaine [Lidoderm] 5 % adhesive patch,medicated 1 patch topical DAILY MDD remove after 12 hours PRN (Reason: pain) Qty: 30 0RF Rx Instructions: leave on most painful area for up to 12 hrs tramadol 50 mg tablet 50 mg PO Q8H Qty: 20 0RF tramadol 50 mg tablet 50 mg PO Q8H Qty: 20 0RF tramadol 50 mg tablet 50 mg PO Q8H Qty: 20 0RF alendronate 70 mg tablet 70 mg PO QWEEK Qty: 12 3RF atorvastatin 10 mg tablet 10 mg PO BEDTIME Qty: 90 8RF calcium carbonate 600 mg calcium (1,500 mg) tablet 1,200 mg PO DAILY Qty: 120 3RF lisinopril 5 mg tablet 5 mg PO DAILY Qty: 90 8RF naproxen 500 mg tablet 500 mg PO BID PRN (Reason: pain) Qty: 20 0RF Stand Alone Forms: Work/School Release
[2023-07-16 15:27] VITALS: PULSE 65; RESP 16; O2SAT 94
[2023-07-16 16:03] VITALS: BP 131/83; PULSE 88; RESP 18; TEMP 36.4; O2SAT 95
--- NOTE | 2023-07-16 16:04 | PC.NURSE ---
patient a&ox3, vss, swab previously obtained, pt awaiting provider, call lewis within reach, will continue to monitor
== END 2023-07-16 16:41 | disposition home or self-care (01) ==
PROVIDERS: Emergency Provider Emergency Medicine; PCP Internal Medicine
DX: J06.9 Acute upper respiratory infection, unspecified (principal); R05.9 Cough, unspecified; Z20.822 Contact with and (suspected) exposure to COVID-19; Z20.828 Contact with and (suspected) exposure to other viral communicable diseases; I10 Essential (primary) hypertension; E78.5 Hyperlipidemia, unspecified; Z87.891 Personal history of nicotine dependence
CPT/HCPCS: 0241U; 71046; 94640; 99284

== ENCOUNTER 2023-07-21 13:01 | Outpatient (AMB) | payer MEDICARE, SELFPAY ==
[2023-07-21 13:02] VITALS: BP 110/68; PULSE 110; O2SAT 97; BMI 24.7
--- NOTE | 2023-07-21 13:02 | A.OFFPC_ITS ---
Vital Signs 07/21/23 13:02 Height 5 ft 2 in Weight 135 lb 4 oz BMI 24.7 BP 110/68 Blood Pressure Location Lt brachial Position Sitting Pulse 110 H Pulse Source Pulse Oximeter Pulse Oximetry (%) 97 Oxygen Delivery Method Room Air Intake Visit Reasons: dry cough/asthma? Export Administrator Required: No Cabin Cleaning Supervisor: Not Required per policy Accompanied by: Self / Same As Patient Allergies oxycodone [From PERCOCET] Allergy (Unknown, Verified 07/21/23 13:03) ITCHY/RASH Medication List - Last Reconciled 07/21/23 by Mike Carlin MD acetaminophen ER (Tylenol 8 Hour) 650 mg PO Q8H PRN alendronate 70 mg PO QWEEK atorvastatin 10 mg PO BEDTIME benzonatate 200 mg PO TID 7 days calcium carbonate 1,200 mg (2 x 600 mg calcium (1,500 mg)) PO DAILY diphenhydramine HCl (Benadryl) 25 mg PO TID PRN ketorolac 10 mg PO TID PRN 5 days lidocaine 5% (Lidoderm) 1 patch topical DAILY PRN MDD remove after 12 hours lisinopril 5 mg PO DAILY loratadine 10 mg PO DAILY PRN naproxen 500 mg PO BID PRN sulfacetamide sodium 10% 1 drp ophthalmic (eye) Q4H 5 days tramadol 50 mg PO Q8H tramadol 50 mg PO Q8H tramadol 50 mg PO Q8H Tobacco use date assessed: 07/21/23 Fall risk assessment: No Falls in past year Last assessed Fall Risk: 07/21/23 Dental Screening Dental Screen Date: 07/21/23 Did you have a dental visit in the last 12 months?: Yes Did you have a dental problem in the last 6 months where you did not have access to dental care?: No Was dental information given to patient?: Patient has dentist HPI dry cough/asthma? HPI Details productive cough for a week PFSH Medical History Rib fractures Hyperlipidemia Osteoporosis Hypertension Surgical History H/O rectal polypectomy History of surgery History of breast surgery History of colonoscopy Family History Father Colon cancer Mother CVD (cardiovascular disease) Brother Alcoholism Paternal Uncle Stomach cancer Sister Diabetes Kidney failure, acute Social History Household Members: None Housing: Apartment Alcohol intake: never Patient Tobacco Use Status: Former Tobacco user Tobacco use type: Cigarette e-Cigarette/Vaping Use: Never Used Second Hand Smoke Exposure: No service: No Current occupational status: employed Current occupation: [employer] Current occupational exposures/hazards: No Cognitive needs: No Hearing needs: No Vision needs: Yes Questionnaire PHQ-9 Over the last 2 weeks, how often have you been bothered by any of the following problems? 1. Little interest or pleasure in doing things: not at all 2. Feeling down, depressed, or hopeless: not at all 3. Trouble falling or staying asleep, or sleeping too much: not at all 4. Feeling tired or having little energy: not at all 5. Poor appetite or overeating: not at all 6. Feeling bad about yourself - or that you are a failure or have let yourself or your family down: not at all 7. Trouble concentrating on things, such as reading the newspaper or watching television: not at all 8. Moving or speaking so slowly that other people could have noticed. Or the opposite - being so fidgety or restless that you have been moving around a lot more than usual: not at all 9. Thoughts that you would be better off or of hurting yourself in some way: not at all Total score: 0 Depression Screening Interpretation: Negative Depression Screening Done: Yes Source: Developed by Drs. Shaun Law, Julissa Sellers, Danny Lopez and colleagues, with an educational manisha from [employer]. Thrive Questionnaire Date Thrive assessed: 07/21/23 I am a: Patient What is your living situation today?: I have a steady place to live Within the past 12 months, did the food you bought not last and you didn't have the money to get more?: Never true Within the past 12 months, did you worry whether your food would run out before you got money to buy more?: Never true Do you have trouble paying for medicines?: No Do you have trouble getting transportation to medical appointments?: No Do you have trouble paying your heating and electricity bill?: No Do you have trouble taking care of your child, family member or friend?: No Do you have trouble with day-to-day activities such as bathing, preparing meals, shopping, managing finances, etc.?: No Are you currently unemployed and looking for a job?: No Are you interested in more education?: No Please select the resources that you would like help with: None AUDIT C Alcohol Use Questionnaire (AUDIT-C) 1. How often do you have a drink containing alcohol?: Never Total Score: 0 Score Reviewed/Action Taken: Yes NUHA-7 AMB Questionnaire NUHA-7 Date NUHA - 7 assessed: 07/21/23 Feeling nervous, anxious, or on edge: 0 = Not at all Not being able to stop or control worryin = Not at all Worrying too much about different things: 0 = Not at all Trouble relaxin = Not at all Being so restless that it is hard to sit still: 0 = Not at all Becoming easily annoyed or irritable: 0 = Not at all Feeling afraid as if something awful might happen: 0 = Not at all Total NUHA-7 score (0-4 normal; 5-9 mild; 10-14 moderate; 15-21 severe): 0 Source: Developed by Drs. Shaun Law, Julissa Sellers, Danny Lopez and colleagues, with an educational manisha from [employer]. Review of Systems Const Denies chills, Denies headache(s) and Denies weight loss ENT Denies headache(s) Card Denies chest pain, Denies syncope and Denies irregular heart rhythm GI Denies abdominal pain, Denies change in stool character, Denies nausea and Denies vomiting Musc Denies deformity and Denies joint swelling Neuro Denies syncope and Denies headache(s) Physical exam (Primary Care) Vital Signs: Last Vital Signs Pulse 110 H 07/21/23 13:02 BP 110/68 07/21/23 13:02 Pulse Ox 97 07/21/23 13:02 Oxygen Delivery Method Room Air 07/21/23 13:02 BMI result Body Mass Index 24.7 Tobacco/Smoking Status: Tobacco use Status Tobacco use date assessed 07/21/23 07/21/23 13:07 Patient Tobacco Use Status Former Tobacco user 07/21/23 13:07 Tobacco use type Cigarette 07/21/23 13:07 e-Cigarette/Vaping Use Never Used 07/21/23 13:07 PHQ-9: PHQ-9 Score PHQ-9: Total score 0 07/21/23 13:07 Depression Screening Interpretation: Negative Thrive Assessment: Date of Thrive Assessment Date Thrive assessed 07/21/23 07/21/23 13:07 Const General: cooperative, comfortable, no acute distress and alert Neck Neck: Yes no lymphadenopathy Thyroid: Thyroid normal Resp Effort & Inspection: normal respiratory effort Auscultation: clear to auscultation bilaterally Percussion: percussion normal Cardio Jugular venous distension: no JVD Palpation: normal PMI Rate: regular rate Rhythm: regular rhythm Heart sounds: S1 normal heart sound present and S2 normal heart sound present GI Inspection: Yes normal to inspection Palpation (GI): No hepatosplenomegaly present Skin General skin exam: no rashes or lesions noted Extrem General: Yes no clubbing, cyanosis or edema Assessment and Plan Assessment & Plan (1) Cough: Code(s): R05.9 - Cough, unspecified Plan: rx sent Medications: New azithromycin take 500 mg today (day 1), then 250 mg for 4 days (days 2-5) PO 6 tabs 0RF Coding Level of Care Code Est Pt Level 3 (84926) Diagnoses Cough R05.9
== END 2023-07-21 13:18 | disposition home or self-care (01) ==
PROVIDERS: PCP Internal Medicine; Visit Provider Internal Medicine
DX: R05.9 Cough, unspecified (principal)
CPT/HCPCS: 99213

== ENCOUNTER 2023-08-13 12:54 | Outpatient (REF) | payer MEDICARE, SELFPAY ==
--- NOTE | ~2023-08-13 | MM_ITS ---
EXAMINATION: BONE DENSITOMETRY CLINICAL INDICATION: Asymptomatic menopausal state. COMPARISON: Previous BD dated 08/07/2021 and baseline BD dated 04/28/2019. TECHNIQUE: Using a Spire DXA System (software version: 13.1) manufactured by [employer], dual-energy x-ray absorptiometry was performed of the lumbar spine and left hip. The images are of good technical quality. Summary results are attached. FINDINGS: AP SPINE L1-L2 (excluding L3 and L4): The data of L1-L4 has been changed to exclude the L3 and L4 vertebral bodies, because degenerative sclerosis at these levels may cause overestimation of lumbar spine density. Current: BMD 0.763 g/cm2, Z-score -1.5, T-score -3.3, osteoporosis, 2.9% decrease from previous, 6.3% increase from baseline (<5% change is not significant). Prior: BMD 0.786 g/cm2. Baseline: BMD 0.718 g/cm2. LEFT FEMUR, NECK: Current: BMD 0.516 g/cm2, Z-score -0.2, T-score -3.8, osteoporosis. Prior: BMD 0.696 g/cm2. Baseline: BMD 0.648 g/cm2. LEFT FEMUR, TOTAL: Current: BMD 0.598 g/cm2, Z-score -1.7, T-score -3.2, osteoporosis, 23.2% decrease from previous, 13.1% decrease from baseline (<5% change is not significant). Prior: BMD 0.779 g/cm2. Baseline: BMD 0.688 g/cm2. IDENTIFIED RISK FACTORS: Secondary osteoporosis (early menopause). HISTORY OF FRACTURE: None listed. MEDICATIONS: Calcium supplement and/or multivitamin. Vitamin D. MM/XR DEXA axial skeleton IMPRESSION: 1. DIAGNOSIS: Osteoporosis based on the lowest T-score value of -3.8 in the femoral neck applying World Health Organization criteria. 2. 10-YEAR FRACTURE RISK PREDICTION, FRAX: According to the guidelines, FRAX calculation should only be performed on patients in the osteopenia bone density category.?Therefore, FRAX was not performed on this patient.? 3. Treatment Recommendations: NOF guidelines recommend consideration for treatment in postmenopausal women and men age 50 and older presenting with the following: -A hip or vertebral (clinical or morphometric) fracture. -T-score less than or equal to -2.5 at the femoral neck or spine after appropriate evaluation to exclude secondary causes. -Low bone mass at the hip or spine and a 10-year fracture probability by FRAX of greater than or equal to 3% for hip fracture or greater than or equal to 20% for major osteoporotic fracture based on the [place] adapted WHO algorithm. 4. Other Recommendations: All treatment decisions require clinical judgment and consideration of individual patient factors, including patient preferences, comorbidities, previous drug use, risk factors not captured in the FRAX model (e.g. frailty, falls, vitamin D deficiency, increased bone turnover, interval significant decline in bone density) and possible under or overestimation of fracture risk by FRAX. Additional medical evaluation for secondary cause of low bone mineral density may be appropriate. FUTURE SCAN RECOMMENDATION: People with diagnosed cases of osteoporosis or at high risk for fracture should have regular bone mineral density tests. For patients eligible for Medicare, routine testing is allowed once every 2 years. The testing frequency can be increased to one year for patients who have rapidly progressing disease, those who are receiving or discontinuing medical therapy to restore bone mass, or have additional risk factors.
== END 2023-08-13 12:55 | disposition home or self-care (01) ==
LOC: HO.MAMMO 12:54
PROVIDERS: PCP Internal Medicine; Visit Provider Obstetrics & Gynecology
DX: Z12.31 Encounter for screening mammogram for malignant neoplasm of breast (principal); Z13.820 Encounter for screening for osteoporosis; Z78.0 Asymptomatic menopausal state
CPT/HCPCS: 77063; 77067; 77080

== ENCOUNTER → 2023-08-13 13:30 | Outpatient (BNV) | payer MEDICARE, SELFPAY | PROVIDERS: PCP Internal Medicine; Visit Provider Radiology Diagnostic Radiology | DX: Z12.31 Encounter for screening mammogram for malignant neoplasm of breast (principal) | CPT/HCPCS: 77063; 77067 ==

== ENCOUNTER 2023-09-09 09:57 | Outpatient (AMB) | payer MEDICARE, SELFPAY ==
--- NOTE | 2023-09-09 09:58 | A.OFFVIS_ITS ---
Intake Vital Signs 09/09/23 10:03 Height 5 ft 1 in Weight 134 lb 7.712 oz BMI 25.4 BP 120/74 Intake Visit Reasons: Dexa results Machine Ceramic Coater Required: Yes Machine Ceramic Coater Language: Supervisor Tunnel Heading Name: Sary Koenig FERNANDO Information Interpreted: non-clinical & clinical Accompanied by: Self / Same As Patient Allergies oxycodone [From PERCOCET] Allergy (Unknown, Verified 07/21/23 13:03) ITCHY/RASH HPI HPI Comments History of Present Illness Details The patient is presenting for follow up regarding DEXA scan results. T score @ spine and femoral Neck respectively were=-3.3 /-3.8 and bone mineral density at the spine drop by-2.9% compared to previous DEXA in 08/01 and +6.3 % compared to baseline DEXA in 04/12 9, bone menorrhagia density at the femur level was-23.2 % compared to previous DEXA in 08/03 and -13.1 compared to baseline DEXA scan in 04/30. The patient has been on alendronate over the last 2 years [facility] Medical History Rib fractures Hyperlipidemia Osteoporosis Hypertension Surgical History H/O rectal polypectomy History of surgery History of breast surgery History of colonoscopy Family History Father Colon cancer Mother CVD (cardiovascular disease) Brother Alcoholism Paternal Uncle Stomach cancer Sister Diabetes Kidney failure, acute Social History Household Members: None Housing: Apartment Alcohol intake: never Patient Tobacco Use Status: Former Tobacco user Tobacco use type: Cigarette e-Cigarette/Vaping Use: Never Used Second Hand Smoke Exposure: No service: No Current occupational status: employed Current occupation: [employer] Current occupational exposures/hazards: No Cognitive needs: No Hearing needs: No Vision needs: Yes Review of Systems Const All systems reviewed & are unremarkable except as noted in HPI and below Reports as per HPI and Reports no additional complaints GI Reports no additional complaints Reports no additional complaints Assessment & Plan Assessment & Plan (1) Osteoporosis: Comment: BMD worsening Code(s): M81.0 - Age-related osteoporosis without current pathological fracture Plan: Discussed with the patient the results of her DEXA scan T-score-3.3 and -3.8 at the spine femur level at very high-risk for fracture in addition bone mineral density at the femur level was-23.2% compared to previous DEXA scan done in 08/03, will refer to Rheumatology for further management. All questions answered, the patient verbalized understanding Orders: Referrals Rheumatology Referral M81.0 - Age-related osteoporosis without current pathological fracture Coding Level of Care Code Est Pt Level 3 (05009) Diagnoses Osteoporosis M81.0
[2023-09-09 10:03] VITALS: BP 120/74; BMI 25.4
== END 2023-09-09 13:29 | disposition home or self-care (01) ==
LOC: HO.HWS 09:57
PROVIDERS: PCP Internal Medicine; Visit Provider Obstetrics & Gynecology
DX: M81.0 Age-related osteoporosis without current pathological fracture (principal)
CPT/HCPCS: 99213

== ENCOUNTER → 2023-09-09 09:57 | Outpatient (BNVA) | payer MEDICARE, SELFPAY | PROVIDERS: PCP Internal Medicine; Visit Provider Obstetrics & Gynecology | DX: M81.0 Age-related osteoporosis without current pathological fracture (principal) | CPT/HCPCS: 99212 ==

== ENCOUNTER 2023-10-09 08:27 | Outpatient (AMB) | payer MEDICARE, SELFPAY ==
[2023-10-09 08:30] VITALS: BP 127/60; PULSE 84; TEMP 36.1; O2SAT 99; BMI 25.4
--- NOTE | 2023-10-09 08:30 | A.OFFVIS_ITS ---
Intake Vital Signs 10/09/23 08:30 Height 5 ft 1 in Weight 134 lb 4.184 oz BMI 25.4 BP 127/60 Blood Pressure Location Rt brachial Position Sitting Pulse 84 Pulse Source Pulse Oximeter Temp 97 F Temp Source Skin Pulse Oximetry (%) 99 Oxygen Delivery Method Room Air Intake Visit Reasons: Osteoporosis/CONFIRMED Intake Note: New patient, internally referred, presents to office today for osteoporosis consult. Reports low back pain. Church Communications Administrator Required: Yes Church Communications Administrator Language: Surveillance Dual Rate Officer Name: Zafar Mccann Information Interpreted: clinical only Accompanied by: Self / Same As Patient Allergies oxycodone [From PERCOCET] Allergy (Unknown, Verified 10/09/23 08:33) ITCHY/RASH HPI HPI Comments History of Present Illness Details Ms. Tariq is a 72-year-old female who was referred by STRUCTURES TECHNICIAN for the treatment of Osteoporosis, highest T score -3.8. Her medical History includes hypertension, pure hypercholesterolemia. Three months ago she was walking and fell and broke some ribs. Her risk factors for Osteoporosis includes being a postmenopause. She does not take a calcium or vitamin D, they are not listed among her medications. She is fairly inactive, and denies excessive consumption of alcohol. Patient denies history of eating disorder and other concerns for mal-absorption. She denies inflammatory arthritis and family history of fractures. --does not smoke --fell and broke ribs 3 months ago --no GERD 09/09/2023 STRUCTURES TECHNICIAN Visit [facility] The patient is presenting for follow up regarding DEXA scan results. T score @ spine and femoral Neck respectively were=-3.3 /-3.8 and bone mineral density at the spine drop by-2.9% compared to previous DEXA in 08/01 and +6.3 % compared to baseline DEXA in 04/12 9, bone menorrhagia density at the femur level was-23.2 % compared to previous DEXA in 08/03 and -13.1 compared to baseline DEXA scan in 04/30. The patient has been on alendronate over the last 2 years [facility] Medical History (Updated 10/09/23 @ 10:03 by NISHA Benitez-) Hypovitaminosis D Rib fractures Hyperlipidemia Osteoporosis Hypertension Surgical History H/O rectal polypectomy History of surgery History of breast surgery History of colonoscopy Family History (Updated 10/09/23 @ 08:37 by FERNANDO Peters) Father Colon cancer Mother CVD (cardiovascular disease) Brother Alcoholism Paternal Uncle Stomach cancer Sister Diabetes Kidney failure, acute Other Osteoporosis Social History Household Members: None Housing: Apartment Alcohol intake: never Patient Tobacco Use Status: Former Tobacco user Tobacco use type: Cigarette e-Cigarette/Vaping Use: Never Used Second Hand Smoke Exposure: No service: No Current occupational status: employed 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 Constitutional: Non-toxic appearing. No acute distress. Well-developed and well-nourished. HEENT: Normocephalic and atraumatic. External auditory canals without erythema or edema bilaterally. Dry mucous membranes. Skin: Warm and dry. No rashes or lesions noted. Neck: Full and painless range of motion. No cervical lymphadenopathy. Cardio: Regular rate and rhythm. No murmurs, gallops, or rubs. No lower extremity edema. No JVD. Pulmonary: No respiratory distress. No accessory muscle usage. Musculoskeletal: Normal range of motion in joints throughout the body. No deformity or other signs of injury observed. Neuro: Alert and oriented x4. Cranial nerves 2-12 grossly intact. No focal deficits appreciated. Results Reviewed Results Reviewed: EXAMINATION: BONE DENSITOMETRY CLINICAL INDICATION: Asymptomatic menopausal state. COMPARISON: Previous BD dated 08/07/2021 and baseline BD dated 04/28/2019. TECHNIQUE: Using a [employer] DXA System (software version: 13.1) manufactured by [employer], dual-energy x-ray absorptiometry was performed of the lumbar spine and left hip. The images are of good technical quality. Summary results are attached. FINDINGS: AP SPINE L1-L2 (excluding L3 and L4): The data of L1-L4 has been changed to exclude the L3 and L4 vertebral bodies, because degenerative sclerosis at these levels may cause overestimation of lumbar spine density. Current: BMD 0.763 g/cm2, Z-score -1.5, T-score -3.3, osteoporosis, 2.9% decrease from previous, 6.3% increase from baseline (<5% change is not significant). Prior: BMD 0.786 g/cm2. Baseline: BMD 0.718 g/cm2. LEFT FEMUR, NECK: Current: BMD 0.516 g/cm2, Z-score -0.2, T-score -3.8, osteoporosis. Prior: BMD 0.696 g/cm2. Baseline: BMD 0.648 g/cm2. LEFT FEMUR, TOTAL: Current: BMD 0.598 g/cm2, Z-score -1.7, T-score -3.2, osteoporosis, 23.2% decrease from previous, 13.1% decrease from baseline (<5% change is not significant). Prior: BMD 0.779 g/cm2. Baseline: BMD 0.688 g/cm2. IDENTIFIED RISK FACTORS: Secondary osteoporosis (early menopause). HISTORY OF FRACTURE: None listed. MEDICATIONS: Calcium supplement and/or multivitamin. Vitamin D. Assessment & Plan Assessment & Plan (1) Osteoporosis: Comment: BMD worsening Code(s): M81.0 - Age-related osteoporosis without current pathological fracture Qualifiers: Osteoporosis type: age-related Presence of current pathological fracture: with current pathological fracture Encounter type: initial encounter Qualified Code(s): M80.00XA - Age-related osteoporosis with current pathological fracture, unspecified site, initial encounter for fracture (2) Hypovitaminosis D: Code(s): E55.9 - Vitamin D deficiency, unspecified Plan Miss Tariq is her to be treated for Osteoporosis. She has had Alendronate for 2 years per STRUCTURES TECHNICIAN, but patient cannot affirm. We will start her on Prolia 60mg Q6 months. We will obtain labs before starting the Prolia. She dienies any recent or upcoming deep dental work. We discuss possible side effects and patient is aware that she may have fluelike symptoms that should resolve in about 1 week. She also may of personal allergies that can erupt so to seek Emergency Medical attention and call the office should that happen F/u in 6 months Orders: Orders Comprehensive Met. Panel Today M81.0 - Age-related osteoporosis without current pathological fracture Phosphorus Today M81.0 - Age-related osteoporosis without current pathological fracture Parathyroid Hormone Intact Today M81.0 - Age-related osteoporosis without current pathological fracture Protein Electrophoresis, Serum Today M81.0 - Age-related osteoporosis without current pathological fracture Alkaline Phosphatase Bone Today M81.0 - Age-related osteoporosis without current pathological fracture Calcium, Ionized Today M81.0 - Age-related osteoporosis without current pathological fracture Vitamin D 1,25 dihydroxy Today E55.9 - Vitamin D deficiency, unspecified, M81.0 - Age-related osteoporosis without current pathological fracture Thyroid Stimulating Hormone Today M81.0 - Age-related osteoporosis without current pathological fracture Collagen Crosslinks NTX Today M81.0 - Age-related osteoporosis without current pathological fracture Calcium Today M81.0 - Age-related osteoporosis without current pathological fracture Albumin Level Today M81.0 - Age-related osteoporosis without current pathological fracture Collagen Cross-linked,24U Today M81.0 - Age-related osteoporosis without current pathological fracture Collagen Type I C-Telopeptide Today M81.0 - Age-related osteoporosis without current pathological fracture Coding Level of Care Code New Pt Level 3 (44358) Diagnoses Age-related osteoporosis with current pathological fracture, initial encounter M80.00XA Osteoporosis type: age-related Presence of current pathological fracture: with current pathological fracture Encounter type: initial encounter Hypovitaminosis D E55.9
== END 2023-10-09 09:05 | disposition home or self-care (01) ==
PROVIDERS: PCP Internal Medicine; Referring Provider Obstetrics & Gynecology; Visit Provider Nurse Practitioner Family
DX: M80.00XA Age-related osteoporosis with current pathological fracture, unspecified site, initial encounter for fracture (principal)
CPT/HCPCS: 99203

== ENCOUNTER 2023-10-09 09:14 | Outpatient (REF) | payer MEDICARE, SELFPAY ==
[2023-10-09 11:27] LABS: Albumin Level 4.4 g/dL (3.5-5.0); Calcium 9.6 mg/dL (8.4-10.2)
[2023-10-09 11:32] LABS: Parathyroid Hormone Intact 84.6 pg/mL (8.7-77.1)
[2023-10-09 11:37] LABS: Alanine Aminotransferase 32 U/L (0-31); Albumin Level 4.4 g/dL (3.5-5.0); Alkaline Phosphatase 106 U/L (39-117); Anion Gap 13 (12-20); Aspartate Amino Transferase 33 U/L (5-31); Bilirubin Total 0.7 mg/dL (0.0-1.0); Blood Urea Nitrogen 16 mg/dL (9-16); Calcium 9.7 mg/dL (8.4-10.2); Carbon Dioxide 26 mmol/L (22-29); Chloride 104 mmol/L (96-108); Estimated Glomerular Filt Rate > 60; Glucose Random 125 mg/dL (60-115); Phosphorus 3.5 mg/dL (2.7-4.5); Potassium 4.2 mmol/L (3.3-5.1); Sodium 139 mmol/L (135-145); Total Protein 8.1 g/dL (6.5-8.0)
[2023-10-09 11:40] LABS: Thyroid Stimulating Hormone 2.14 uIU/mL (0.32-4.0)
[2023-10-12 13:59] LABS: Calcium, Ionized 5.2 mg/dL (4.7-5.5)
[2023-10-12 22:04] LABS: Prot Elec - Albumin 4.3 g/dL (3.8-4.8); Prot Elec - Alpha1 0.3 g/dL (0.2-0.3); Prot Elec - Alpha2 0.9 g/dL (0.5-0.9); Prot Elec - Beta 1 0.6 g/dL (0.4-0.6); Prot Elec - Beta 2 0.4 g/dL (0.2-0.5); Prot Elec - Gamma 1.2 g/dL (0.8-1.7); Prot Elec - Total Protein 7.6 g/dL (6.1-8.1)
[2023-10-13 12:19] LABS: VITAMIN D (1,25 OH) D3 71 pg/mL; Vit D (1,25-Dihydroxy) Total 71 pg/mL (18-72); Vitamin D (1,25 OH) D2 <8 pg/mL
[2023-10-13 19:18] LABS: Alkaline Phosphatase Bone 19.3 mcg/L (5.6-29.0)
[2023-10-14 23:24] LABS: Collagen Type I C-Telopeptide 456 pg/mL (see note)
== END 2023-10-09 09:15 | disposition home or self-care (01) ==
LOC: HO.10HDL 09:14
PROVIDERS: Visit Provider Nurse Practitioner Family
DX: M80.00XA Age-related osteoporosis with current pathological fracture, unspecified site, initial encounter for fracture (principal); E55.9 Vitamin D deficiency, unspecified
CPT/HCPCS: 36415; 80053; 82040; 82310; 82330; 82523; 82652; 83970; 84075; 84100; 84165; 84443; 99202

== ENCOUNTER 2023-10-22 08:14 | Outpatient (AMB) | payer MEDICARE, SELFPAY ==
--- NOTE | 2023-10-22 09:10 | AM.OFFVISNUR ---
Intake Vital Signs 10/22/23 09:11 Height 5 ft 1 in BP 124/76 Blood Pressure Location Rt brachial Position Sitting Pulse 76 Pulse Source Pulse Oximeter Intake Visit Reasons: Prolia injection Arnp Required: No Allergies oxycodone [From PERCOCET] Allergy (Unknown, Verified 10/22/23 09:12) ITCHY/RASH Nursing Note Patient here for first Prolia injection. Patient provided with a printout of pertinent information regarding the Prolia and possible side effects. Patient confirmed allergies. BP, and consent obtained for Prolia injection. I administered Prolia on left upper arm. Patient tolerated injection well. Office Meds Prolia 60 mg/mL subcutaneous syringe Performing Provider: NATO Benitez Performing Location: [facility] Rheumatology Administered by: Liliane Leslie RN on 10/22/23 09:19 Dose Route Admin Location Dispensed Lot Number Expiration Date [employer] Presenter 60 mg subcut left upper arm 1 mL [id number] 10/10/25 30529-495-49 AMGEN Coding Level of Care Code Procedure Only Assessment & Plan Assessment & Plan Orders: Orders AMB Denosumab Injection Practice Supplied Today M81.0 - Age-related osteoporosis without current pathological fracture Medications: New Prolia (denosumab) 60 mg subcut ONCE 1 mL 0RF NS M81.0 - Age-related osteoporosis without current pathological fracture
[2023-10-22 09:11] VITALS: BP 124/76; PULSE 76
== END 2023-10-22 09:07 | disposition home or self-care (01) ==
PROVIDERS: PCP Internal Medicine; Visit Provider Nurse Practitioner Family
DX: M81.0 Age-related osteoporosis without current pathological fracture (principal)

== ENCOUNTER → 2023-10-22 08:14 | Outpatient (BNVA) | payer MEDICARE, SELFPAY | PROVIDERS: PCP Internal Medicine; Visit Provider Nurse Practitioner Family | DX: M81.0 Age-related osteoporosis without current pathological fracture (principal) | CPT/HCPCS: 96372; J0897 ==

== ENCOUNTER 2023-10-30 11:08 | Outpatient (AMB) | payer MEDICARE, SELFPAY ==
[2023-10-30 11:12] VITALS: BP 126/64; PULSE 108; O2SAT 96; BMI 25.3
--- NOTE | 2023-10-30 11:12 | A.OFFPC_ITS ---
Vital Signs 10/30/23 11:12 Height 5 ft 1 in Weight 134 lb BMI 25.3 BP 126/64 Blood Pressure Location Lt brachial Position Sitting Pulse 108 H Pulse Source Pulse Oximeter Pulse Oximetry (%) 96 Oxygen Delivery Method Room Air Intake Visit Reasons: 4M f/u Planning Director: Not Required per policy Accompanied by: Self / Same As Patient Allergies oxycodone [From PERCOCET] Allergy (Unknown, Verified 10/30/23 11:12) ITCHY/RASH Medication List - Last Reconciled 10/30/23 by Mike Carlin MD acetaminophen ER (Tylenol 8 Hour) 650 mg PO Q8H PRN atorvastatin 10 mg PO BEDTIME denosumab (Prolia) 60 mg subcut [id number] diphenhydramine HCl (Benadryl) 25 mg PO TID PRN lisinopril 5 mg PO DAILY loratadine 10 mg PO DAILY PRN naproxen 500 mg PO BID PRN sulfacetamide sodium 10% 1 drp ophthalmic (eye) Q4H 5 days tramadol 50 mg PO Q8H Tobacco use date assessed: 07/21/23 Fall risk assessment: 1 Fall in past year Last assessed Fall Risk: 10/30/23 Dental Screening Dental Screen Date: 07/21/23 HPI 4M f/u HPI Details cough and wheezing for a week PFSH Medical History (Updated 10/13/23 @ 09:33 by NISHA Benitez-) Osteoporosis Elevated parathyroid hormone Hypovitaminosis D Rib fractures Hyperlipidemia Osteoporosis Hypertension Surgical History H/O rectal polypectomy History of surgery History of breast surgery History of colonoscopy Family History Father Colon cancer Mother CVD (cardiovascular disease) Brother Alcoholism Paternal Uncle Stomach cancer Sister Diabetes Kidney failure, acute Other Osteoporosis Social History Household Members: None Housing: Apartment Alcohol intake: never Patient Tobacco Use Status: Former Tobacco user Tobacco use type: Cigarette e-Cigarette/Vaping Use: Never Used Second Hand Smoke Exposure: No service: No Current occupational status: employed Current occupation: [employer] Current occupational exposures/hazards: No Cognitive needs: No Hearing needs: No Vision needs: Yes Questionnaire Thrive Questionnaire Date Thrive assessed: 07/21/23 NUHA-7 AMB Questionnaire NUHA-7 Date NUHA - 7 assessed: 07/21/23 Source: Developed by Drs. Shaun Law, Julissa Sellers, Danny Lopez and colleagues, with an educational manisha from [employer]. Review of Systems Const Denies chills and Denies weight loss Card Denies chest pain, Denies syncope, Denies irregular heart rhythm and Denies dyspnea Resp Denies dyspnea GI Denies abdominal pain, Denies change in stool character, Denies nausea and Denies vomiting Musc Denies deformity and Denies joint swelling Neuro Denies syncope Physical exam (Primary Care) Vital Signs: Last Vital Signs Pulse 108 H 10/30/23 11:12 BP 126/64 10/30/23 11:12 Pulse Ox 96 10/30/23 11:12 Oxygen Delivery Method Room Air 10/30/23 11:12 BMI result Body Mass Index 25.3 Tobacco/Smoking Status: Tobacco use Status Tobacco use date assessed 07/21/23 10/30/23 11:12 Patient Tobacco Use Status Former Tobacco user 10/30/23 11:12 Tobacco use type Cigarette 10/30/23 11:12 e-Cigarette/Vaping Use Never Used 10/30/23 11:12 Thrive Assessment: Date of Thrive Assessment Date Thrive assessed 07/21/23 10/30/23 11:12 Const General: cooperative, comfortable, no acute distress and alert Neck Neck: Yes no lymphadenopathy Thyroid: Thyroid normal Resp Other: bilat wheezes Percussion: percussion normal Cardio Jugular venous distension: no JVD Palpation: normal PMI Rate: regular rate Rhythm: regular rhythm Heart sounds: S1 normal heart sound present and S2 normal heart sound present GI Inspection: Yes normal to inspection Palpation (GI): No hepatosplenomegaly present Skin General skin exam: no rashes or lesions noted Extrem General: Yes no clubbing, cyanosis or edema Assessment and Plan Assessment & Plan (1) Bronchitis: Code(s): J40 - Bronchitis, not specified as acute or chronic Plan: rx sent Medications: New azithromycin take 500 mg today (day 1), then 250 mg for 4 days (days 2-5) PO 6 tabs 0RF albuterol sulfate 90 mcg/actuation (ProAir HFA) 2 puffs PO Q6H PRN 18 grams 8RF bronchospasm Refilled atorvastatin 10 mg PO BEDTIME 90 tabs 8RF Coding Level of Care Code Est Pt Level 3 (85310) Diagnoses Bronchitis J40
== END 2023-10-30 11:30 | disposition home or self-care (01) ==
PROVIDERS: PCP Internal Medicine; Visit Provider Internal Medicine
DX: J40 Bronchitis, not specified as acute or chronic (principal)
CPT/HCPCS: 99213

== ENCOUNTER 2023-11-28 12:43 | Emergency (ER) | payer MEDICARE, SELFPAY ==
--- NOTE | ~2023-11-28 | XR_ITS ---
EXAMINATION: XR CHEST CLINICAL INFORMATION: Cough. Shortness of breath. COMPARISON: Most recent chest radiograph dated 07/16/2023. TECHNIQUE: 2 views of the chest were obtained. FINDINGS: The lungs are clear. The cardiomediastinal silhouette is normal in size. There is no pleural effusion or pneumothorax. No acute osseous abnormality. XR/XR chest 2V IMPRESSION: No acute cardiopulmonary findings.
[2023-11-28 12:49] VITALS: BP 128/87; PULSE 105; RESP 20; TEMP 36.6; O2SAT 5; BMI 24.7
--- NOTE | 2023-11-28 12:52 | ED.URI ---
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 No fevers, chills, chest pain, leg swelling/leg pain. No recent travel or sick contact. Denies history of asthma/COPD, has 14 yr smoking history. Related Data Previous Rx's ?Medication ?Instructions ?Recorded naproxen 500 mg tablet 500 mg PO BID PRN pain #20 tabs 10/16/22 diphenhydramine HCl 25 mg capsule 25 mg PO TID PRN allergic reaction 11/16/22 (Benadryl) #20 caps loratadine 10 mg tablet 10 mg PO DAILY PRN allergic 11/16/22 symptoms #30 tabs sulfacetamide sodium 10 % eye drops 1 drp ophthalmic (eye) Q4H 5 days 11/16/22 #15 mL tramadol 50 mg tablet 50 mg PO Q8H pain #20 tabs 05/22/23 acetaminophen 650 mg 650 mg PO Q8H PRN pain #20 tabs 06/17/23 tablet,extended release (Tylenol 8 Hour) lisinopril 5 mg tablet 5 mg PO DAILY #90 tabs 08/20/23 denosumab 60 mg/mL subcutaneous 60 mg subcut [id number] #1 mL 10/13/23 syringe (Prolia) albuterol sulfate 90 mcg/actuation 2 puff PO Q6H PRN bronchospasm #18 10/30/23 aerosol inhaler (ProAir HFA) grams atorvastatin 10 mg tablet 10 mg PO BEDTIME #90 tabs 10/30/23 azithromycin 250 mg tablet See Rx Instructions PO .COMPLEX #6 10/30/23 tabs benzonatate 200 mg capsule 200 mg PO TID PRN cough #20 caps 11/28/23 prednisone 20 mg tablet 40 mg (2 x 20 mg) PO DAILY #8 tabs 11/28/23 Allergies Allergy/AdvReac Type Severity Reaction Status Date / Time oxycodone [From PERCOCET] Allergy Unknown ITCHY/RASH Verified 11/28/23 12:52 Review of Systems Review of Systems: Yes all other systems are reviewed and are negative Constitutional: Constitutional: Reports no additional constitutional complaints, Denies body ache(s), Denies chills, Denies fever(s), Denies headache(s) and Denies weakness Eyes: Eyes: Reports no additional eye complaints and Denies change in vision ENT: Reports system reviewed and no additional complaints, except as documented, Denies dizziness, Denies headache(s), Denies nasal congestion, Denies nasal discharge and Denies neck pain Cardiovascular: Cardiovascular: Reports no additional cardiovascular complaints, Denies chest pain, Denies leg edema and Reports dyspnea Respiratory: Respiratory: Reports no additional respiratory complaints, Reports cough and Reports dyspnea Gastrointestinal: Gastrointestinal: Reports no additional gastrointestinal complaints, Denies abdominal pain, Denies diarrhea, Denies nausea and Denies vomiting Genitourinary: Genitourinary: Reports no additional female genitourinary complaints and Denies urinary incontinence Musculoskeletal: Musculoskeletal: Reports no additional musculoskeletal complaints, Denies back pain, Denies arthralgias, Denies joint swelling, Denies neck pain, Denies numbness and Denies tingling Integumentary/Breasts: Skin/Breast: Reports system reviewed and no additional complaints, except as docu and Denies rash Neurologic: Reports system reviewed and no additional complaints, except as documented, Denies Abnormal speech present, Denies dizziness, Denies headache(s), Denies numbness, Denies tingling and Denies weakness PMFSH Past Medical History Attestation statement: The following information was validated with the patient. Source: old records reviewed and nursing notes reviewed Medical History Osteoporosis Elevated parathyroid hormone Hypovitaminosis D Rib fractures Hyperlipidemia Osteoporosis Hypertension Surgical History H/O rectal polypectomy History of surgery History of breast surgery History of colonoscopy Family History Family History Father Colon cancer Mother CVD (cardiovascular disease) Brother Alcoholism Paternal Uncle Stomach cancer Sister Diabetes Kidney failure, acute Other Osteoporosis Social History Social History Household Members: None Housing: Apartment Alcohol intake: never Patient Tobacco Use Status: Former Tobacco user Tobacco use type: Cigarette e-Cigarette/Vaping Use: Never Used Second Hand Smoke Exposure: No Advance Directives: No Advance Directives Information Provided: Yes service: No Current occupational status: employed Current occupation: [employer] Current occupational exposures/hazards: No Cognitive needs: No Hearing needs: No Vision needs: Yes Physical Exam Vital Signs: Vital Signs: Last Vital Signs Temp 98.9 F 11/28/23 17:34 Pulse 89 11/28/23 17:34 Resp 18 11/28/23 17:34 BP 140/63 H 11/28/23 17:34 Pulse Ox 95 11/28/23 17:34 O2 Del Method Room Air 11/28/23 17:34 BMI result Body Mass Index 24.7 Const: General: cooperative, healthy appearing, comfortable and no acute distress Orientation/consciousness: patient oriented x3 Limitations: no limitations HEENT: Head: Yes normal to inspection Ears: hearing grossly normal bilaterally General nose exam: Normal external nose present Face and sinus: Yes normal facial exam Mouth: Normal oral and palatal mucosa present Throat: Yes posterior oropharynx normal Eyes: General: appearance normal, both eyes and all related structures Pupils: Equal, round and reactive pupils present Neck: Neck: Yes normal visual inspection, Yes full ROM, Yes no lymphadenopathy and Yes no meningeal signs Chest: Chest palpation & inspection: normal inspection of the chest Resp: Effort & Inspection: normal respiratory effort Auscultation: wheezes Cardio: Rate: regular rate Rhythm: regular rhythm Peripheral pulses: Peripheral pulses 2+ throughout GI: Inspection: Yes normal to inspection Palpation (GI): Soft to palpation and nontender Auscultation: normal bowel sounds Back/Spine/Pelvis: Thoracic/Lumbar Spine: thoracic and lumbar spine normal to inspection Skin: General skin exam: no rashes or lesions noted Neuro: General: patient oriented x3, no meningeal signs, no focal motor deficits and normal sensation to monofilament Cranial nerves: Yes Equal, round and reactive pupils present Cognition (Neuro): normal cognition Speech: No Abnormal speech present Gait exam (Neuro): Normal gait present Motor exam (neuro): 5/5 motor strength present throughout Extrem: General: Yes normal to inspection, Yes no pedal edema and Yes no calf tenderness Course Course Course Narrative: This is rapid medical exam. deferred additional HPI, ROS, PE to primary provider. 72yo female with history of HTN, HLD here with sob, cough since October despite course of antibiotics. No fevers, chills. Will obtain CXR, labs, viral testing VSS -Manolo Davila APRN Medications Administered Discontinued Medications Generic Name Dose Route Start Last Admin Trade Name Herminio PRN Reason Stop Dose Admin Albuterol Sulfate 2 puff 11/28/23 17:23 11/28/23 17:32 Albuterol Sulfate 90 Mcg 8 Gm Inhaler INHALE 11/28/23 17:24 2 puff ONCE ONE Administration Benzonatate 200 mg 11/28/23 17:23 11/28/23 17:32 Benzonatate 100 Mg Capsule PO 11/28/23 17:24 200 mg ONCE ONE Administration Prednisone 60 mg 11/28/23 17:23 11/28/23 17:32 Prednisone 20 Mg Tablet PO 11/28/23 17:24 60 mg ONCE ONE Administration Medical Decision Making Medical Decision Making [facility] Narrative: 72yo female with history of HTN, HLD here with sob, cough since October despite course of antibiotics. No fevers, chills, chest pain, leg swelling/leg pain. No recent travel or sick contact. +wheezing on exam VSS Will obtain labs, CXR and viral testing Differential Diagnosis Differential Diagnoses: The differential diagnosis associated with the presentation includes viral syndrome PNA PE-no hypoxia, no tachypnea, no tachycardia, no clinical findings concerning for DVT Admission/Observation Consideration of admission/observation: Escalation of care including admission/observation considered No hypoxia or tachypnea. Improved with albuterol. Can go home with oral prednisone albuterol MDI Lab Data [facility] Lab Attestation statement: I reviewed the patient's lab results. 11/28/23 13:00 11/28/23 13:00 Labs: Lab Results 11/28/23 11/28/23 Range/Units 13:00 13:01 WBC 6.6 (4.8-10.8) X10*3/uL RBC 4.66 (4.20-5.50) X10*6/uL Hgb 14.8 (12.0-16.0) g/dl Hct 44.8 (37.0-47.0) % MCV 96.1 (80.0-98.0) fL MCH 31.8 (27.0-33.0) pg MCHC 33.0 (31.0-35.0) g/dl RDW 12.6 (11.0-16.0) % Plt Count 281 (160-400) X10*3/uL MPV 10.1 (9.4-12.3) fL Immature Gran % (Auto) 0.3 (0.0-0.4) % Neut % (Auto) 67.1 (45-73) % Lymph % (Auto) 22.1 (20-40) % [place]more % (Auto) 7.9 (2-11) % Eos % (Auto) 2.1 (0-4) % Baso % (Auto) 0.5 (0-2) % Lymph # (Auto) 1.5 (1.2-4.9) X10*3/uL [place]more # (Auto) 0.5 (0.1-1.2) X10*3/uL Eos # (Auto) 0.1 (0.0-0.4) X10*3/uL Baso # (Auto) 0.0 (0.0-0.2) X10*3/uL Abs Immat Gran (auto) 0.02 (0.00-0.03) X10*3/uL Absolute Neuts (auto) 4.4 (2.0-8.3) x10*3/uL Absolute Nucleated RBC 0.000 (0.0-0.012) X10*3/uL Nucleated RBC % (auto) 0.0 (0.0-0.2) /100WBC Sodium 141 (135-145) mmol/L Potassium 4.4 (3.3-5.1) mmol/L Chloride 106 (96-108) mmol/L Carbon Dioxide 25 (22-29) mmol/L Anion Gap 14 (12-20) BUN 15 (9-16) mg/dL Creatinine 0.73 (0.5-1.4) mg/dL Estim Creat Clear Calc 61.7 Estimated GFR > 60 Random Glucose 144 H (60-115) mg/dL Calcium 9.6 (8.4-10.2) mg/dL Total Bilirubin 0.5 (0.0-1.0) mg/dL Direct Bilirubin 0.2 (0.0-0.5) mg/dL AST 28 (5-31) U/L ALT 26 (0-31) U/L Alkaline Phosphatase 86 (39-117) U/L B-Natriuretic Peptide 11 (<100) pg/mL Total Protein 7.7 (6.5-8.0) g/dL Albumin 4.3 (3.5-5.0) g/dL Influenza Type A (PCR) NEGATIVE (Negative) Influenza Type B (PCR) NEGATIVE (Negative) RSV RNA Qual (PCR) NEGATIVE (Negative) SARS-CoV-2 RNA (RT-PCR) NEGATIVE (Negative) Independent Interpretation I performed an independent interpretation of an: Plain X-Ray Interpretation: I independently reviewed the x-ray and agree with the radiology report Radiology Impression Discussion of test interpretation with radiology: I have reviewed the radiologist's reading. Radiologist Impression: [place] [id number] XRay Report Signed Patient: Chandni Luther MR#: [id number] : 1950 Acct:[id number] Age/Sex: 72 / F ADM Date: 11/28/23 Loc: .ED Attending Dr: Ordering Physician: Gail Mares NP Date of Service: 11/28/23 Procedure(s): XR chest 2V Accession Number(s): [id number] cc: Mike Carlin MD; Gail Mares NP~ EXAMINATION: XR CHEST CLINICAL INFORMATION: Cough. Shortness of breath. COMPARISON: Most recent chest radiograph dated 07/16/2023. TECHNIQUE: 2 views of the chest were obtained. FINDINGS: The lungs are clear. The cardiomediastinal silhouette is normal in size. There is no pleural effusion or pneumothorax. No acute osseous abnormality. XR/XR chest 2V IMPRESSION: No acute cardiopulmonary findings. Prescription Management I considered prescription management with: Antibiotic Discharge Plan Discharge Clinical Impression: Upper respiratory infection Patient Disposition: Home, Self-Care Instructions: Upper Respiratory Infection (ED) Additional Instructions: Your x-ray shows no signs of pneumonia Your testing for flu, covid and rsv are negative Your blood work looks good Start prednisone tomorrow Use the inhaler 2 puffs every 4 hours as needed Prescriptions: New prednisone 20 mg tablet 40 mg PO DAILY Qty: 8 0RF benzonatate 200 mg capsule 200 mg PO TID PRN (Reason: cough) Qty: 20 0RF No Action acetaminophen [Tylenol 8 Hour] 650 mg tablet extended release 650 mg PO Q8H PRN (Reason: pain) Qty: 20 0RF lisinopril 5 mg tablet 5 mg PO DAILY Qty: 90 8RF Prolia 60 mg/mL syringe 60 mg subcut [id number] Qty: 1 3RF diphenhydramine HCl [Benadryl] 25 mg capsule 25 mg PO TID PRN (Reason: allergic reaction) Qty: 20 0RF loratadine 10 mg tablet 10 mg PO DAILY PRN (Reason: allergic symptoms) Qty: 30 0RF sulfacetamide sodium 10 % drops 1 drp ophthalmic (eye) Q4H 5 Days Qty: 15 0RF tramadol 50 mg tablet 50 mg PO Q8H Qty: 20 0RF atorvastatin 10 mg tablet 10 mg PO BEDTIME Qty: 90 8RF albuterol sulfate [ProAir HFA] 90 mcg/actuation HFA aerosol inhaler 2 puff PO Q6H PRN (Reason: bronchospasm) Qty: 18 8RF azithromycin 250 mg tablet See Rx Instructions PO .COMPLEX Qty: 6 0RF Rx Instructions: take 500 mg today (day 1), then 250 mg for 4 days (days 2-5) PO naproxen 500 mg tablet 500 mg PO BID PRN (Reason: pain) Qty: 20 0RF Interventions: ED Discharge Assessment Last Done: 11/28/23 17:34 Discharge Date/Time: 11/28/23 17:35 Print Language: Kyrgyz
[2023-11-28 13:05] LABS: MANUAL DIFF FLAG NO
[2023-11-28 13:08] LABS: Basophils Percent Auto 0.5 % (0-2); Eosinophils Absolute Auto 0.1 X10*3/uL (0.0-0.4); Eosinophils Percent Auto 2.1 % (0-4); Hematocrit 44.8 % (37.0-47.0); Hemoglobin 14.8 g/dl (12.0-16.0); Imm Gran Abs Auto 0.02 X10*3/uL (0.00-0.03); Imm Gran Pct Auto 0.3 % (0.0-0.4); Lymphocytes Absolute Auto 1.5 X10*3/uL (1.2-4.9); Lymphocytes Percent Auto 22.1 % (20-40); Mean Corpuscular Hemoglobin 31.8 pg (27.0-33.0); Mean Corpuscular Volume 96.1 fL (80.0-98.0); Mean Platelet Volume 10.1 fL (9.4-12.3); Monocytes Absolute Auto 0.5 X10*3/uL (0.1-1.2); Monocytes Percent Auto 7.9 % (2-11); Neutrophils Absolute Auto 4.4 x10*3/uL (2.0-8.3); Neutrophils Percent Auto 67.1 % (45-73); Platelet Count 281 X10*3/uL (160-400); Red Blood Count 4.66 X10*6/uL (4.20-5.50); Red Cell Distribution Width 12.6 % (11.0-16.0); White Blood Count 6.6 X10*3/uL (4.8-10.8)
[2023-11-28 13:21] LABS: Alanine Aminotransferase 26 U/L (0-31); Albumin Level 4.3 g/dL (3.5-5.0); Alkaline Phosphatase 86 U/L (39-117); Anion Gap 14 (12-20); Aspartate Amino Transferase 28 U/L (5-31); Bilirubin Direct 0.2 mg/dL (0.0-0.5); Bilirubin Total 0.5 mg/dL (0.0-1.0); Blood Urea Nitrogen 15 mg/dL (9-16); Calcium 9.6 mg/dL (8.4-10.2); Carbon Dioxide 25 mmol/L (22-29); Chloride 106 mmol/L (96-108); Creatinine Clr Calc Pharmacy 61.7; Estimated Glomerular Filt Rate > 60; Glucose Random 144 mg/dL (60-115); Potassium 4.4 mmol/L (3.3-5.1); Sodium 141 mmol/L (135-145); Total Protein 7.7 g/dL (6.5-8.0)
[2023-11-28 13:26] LABS: B Type Natriuretic Peptide 11 pg/mL (<100)
[2023-11-28 13:53] LABS: Influenza A PCR NEGATIVE (Negative); Influenza B PCR NEGATIVE (Negative); Resp Syncy Virus RNA Qual PCR NEGATIVE (Negative); SARS COV2 PCR INHOUSE NEGATIVE (Negative)
[2023-11-28 17:21] VITALS: BP 140/63; PULSE 89; RESP 18; TEMP 37.2; O2SAT 95
[2023-11-28] MEDS: Benzonatate 100 MG CAPSULE 200 MG PO (17:32)
[2023-11-28] MEDS: Albuterol Sulfate 90 MCG 8 GM INHALER 2 PUFF INHALE (17:32)
[2023-11-28] MEDS: predniSONE 20 MG TABLET 60 MG PO (17:32)
[2023-11-28 17:34] VITALS: BP 140/63; PULSE 89; RESP 18; TEMP 37.2; O2SAT 95
== END 2023-11-28 17:35 | disposition home or self-care (01) ==
PROVIDERS: Nurse Practitioner Family; Emergency Provider Internal Medicine; PCP Internal Medicine
DX: J06.9 Acute upper respiratory infection, unspecified (principal); R05.9 Cough, unspecified; R06.02 Shortness of breath; I10 Essential (primary) hypertension; E78.5 Hyperlipidemia, unspecified
CPT/HCPCS: 0241U; 71046; 80048; 80076; 83880; 85025; 99282; 99284

== ENCOUNTER 2024-01-05 14:17 | Outpatient (AMB) | payer MEDICARE, SELFPAY ==
[2024-01-05 14:31] VITALS: BP 118/68
--- NOTE | 2024-01-05 14:31 | A.OFFVIS_ITS ---
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 No complaints. Last Pap/HPV was negative in 2016, no history of abnormal Pap smear or last 25 years Last Mammogram was BI-RADS 1 in 09/05 Last Colonoscopy was in 2015, the recommendation was to repeat in 5 years Last DEXA scan was in 09/05 T-score was-3.8, the patient was referred to Rheumatology, is on Prolia infusion PFSH Medical History Osteoporosis Elevated parathyroid hormone Hypovitaminosis D Rib fractures Hyperlipidemia Osteoporosis Hypertension Surgical History H/O rectal polypectomy History of surgery History of breast surgery History of colonoscopy Family History Father Colon cancer Mother CVD (cardiovascular disease) Brother Alcoholism Paternal Uncle Stomach cancer Sister Diabetes Kidney failure, acute Other Osteoporosis Social History Household Members: None Housing: Apartment Alcohol intake: never Patient Tobacco Use Status: Former Tobacco user Tobacco use type: Cigarette e-Cigarette/Vaping Use: Never Used Second Hand Smoke Exposure: No service: No 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 occupational status: employed 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 Current occupational exposures/hazards: No Cognitive needs: No Hearing needs: No Vision needs: Yes Female Reproductive History Menstrual Menopause type: natural Total pregnancies: 0 Date of Mammogram: 08/13/23 Date of last Bone Density Screenin08/13/23 Review of Systems Const All systems reviewed & are unremarkable except as noted in HPI and below Card Reports as per HPI Resp Reports as per HPI GI Reports as per HPI and Reports no additional complaints Reports as per HPI Physical Exam Vital Signs: Last Vital Signs BP 118/68 01/05/24 14:31 Const General: cooperative, healthy appearing and comfortable Chest Chest palpation & inspection: normal inspection of the chest and normal palpation of entire chest wall Breast/axilla inspection: normal inspection of the breasts and normal inspection of the axillae Breast/axilla palpation: normal palpation of the breasts, normal palpation of the axillae and no axillary lymphadenopathy Resp Effort & Inspection: normal respiratory effort Auscultation: clear to auscultation bilaterally Percussion: percussion normal Cardio Palpation: normal PMI Rate: regular rate Rhythm: regular rhythm Heart sounds: no murmurs and no rubs Peripheral pulses: Peripheral pulses 2+ throughout GI Inspection: Yes normal to inspection Palpation (GI): Soft to palpation, nontender, no guarding, not rigid and No hepatosplenomegaly present Percussion: Yes normal to percussion Auscultation: normal bowel sounds Rectal Exam - Female: deferred General: Yes bladder normal to palpation External Female Exam: No lesion Speculum Exam - Vagina: normal appearance of the vagina, normal palpation, normal vaginal discharge and not erythematous Speculum Exam - Cervix: normal appearance of the cervix and normal palpation Bimanual exam- vagina & uterus: normal bimanual exam, normal palpation, uterine size normal, bladder normal to palpation, consistency normal and normal palpation Bimanual Exam- Adnexa, other: normal adnexae, no masses and no tenderness Assessment & Plan Assessment & Plan (1) Well woman exam: Code(s): Z01.419 - Encounter for gynecological examination (general) (routine) without abnormal findings Category: Medical Plan: Co testing not indicated since the patient 's age is above 65 with no history of abnormal Pap smears last 25 years. Counseled the patient about the recommended dietary allowance of 1200 mg of Calcium & 800 IU of vitamin D. Instructions given the patient to schedule next screening Mammogram in 09/06. Referred her for screening colonoscopy done. The patient was instructed to perform monthly self-breast exams and to schedule a 2 week DEXA scan follow-up appointment and an annual exam in a year; All questions answered and the patient verbalized understanding. Orders: Referrals Gastroenterology Referral Z12.11 - Encounter for screening for malignant neoplasm of colon Coding Level of Care Code Est Pt Prev Care 40-64y(64898) Diagnoses Well woman exam Z01.419
== END 2024-01-05 14:57 | disposition home or self-care (01) ==
LOC: HO.HWS 14:17
PROVIDERS: PCP Internal Medicine; Visit Provider Obstetrics & Gynecology
DX: Z01.419 Encounter for gynecological examination (general) (routine) without abnormal findings (principal)
CPT/HCPCS: G0101

== ENCOUNTER → 2024-01-05 14:17 | Outpatient (BNVA) | payer MEDICARE, SELFPAY | PROVIDERS: PCP Internal Medicine; Visit Provider Obstetrics & Gynecology | DX: Z01.419 Encounter for gynecological examination (general) (routine) without abnormal findings (principal); M81.0 Age-related osteoporosis without current pathological fracture; Z78.0 Asymptomatic menopausal state; Z79.620 Long term (current) use of immunosuppressive biologic | CPT/HCPCS: G0101 ==

== ENCOUNTER 2024-02-29 10:25 | Outpatient (AMB) | payer MEDICARE, SELFPAY ==
[2024-02-29 10:29] VITALS: BP 122/78; PULSE 105; O2SAT 94; BMI 24.5
--- NOTE | 2024-02-29 10:29 | MHC.PC.OV ---
Vital Signs 02/29/24 10:29 Height 5 ft 2 in Weight 134 lb BMI 24.5 BP 122/78 Blood Pressure Location Lt brachial Position Sitting Pulse 105 H Pulse Source Pulse Oximeter Pulse Oximetry (%) 94 Oxygen Delivery Method Room Air Intake Visit Reasons: 4mof\u Allergies oxycodone [From PERCOCET] Allergy (Unknown, Verified 02/29/24 10:29) ITCHY/RASH Medication List - Last Reconciled 02/29/24 by Mike Carlin MD acetaminophen ER (Tylenol 8 Hour) 650 mg PO Q8H PRN albuterol sulfate 90 mcg/actuation (ProAir HFA) 2 puffs PO Q6H PRN atorvastatin 10 mg PO BEDTIME benzonatate 200 mg PO TID PRN denosumab (Prolia) 60 mg subcut [id number] diphenhydramine HCl (Benadryl) 25 mg PO TID PRN lisinopril 5 mg PO DAILY loratadine 10 mg PO DAILY PRN naproxen 500 mg PO BID PRN sulfacetamide sodium 10% 1 drp ophthalmic (eye) Q4H 5 days tramadol 50 mg PO Q8H Tobacco use date assessed: 07/21/23 Fall risk assessment: 1 Fall in past year Last assessed Fall Risk: 02/29/24 Dental Screening Dental Screen Date: 02/29/24 Did you have a dental visit in the last 12 months?: No Did you have a dental problem in the last 6 months where you did not have access to dental care?: No Was dental information given to patient?: Patient has dentist HPI 4mof\u HPI Details hypertension on rx; doing well and compliant [facility] Medical History Osteoporosis Elevated parathyroid hormone Hypovitaminosis D Rib fractures Hyperlipidemia Osteoporosis Hypertension Surgical History H/O rectal polypectomy History of surgery History of breast surgery History of colonoscopy Family History Father Colon cancer Mother CVD (cardiovascular disease) Brother Alcoholism Paternal Uncle Stomach cancer Sister Diabetes Kidney failure, acute Other Osteoporosis Social History Household Members: None Housing: Apartment Alcohol intake: never Patient Tobacco Use Status: Former Tobacco user Tobacco use type: Cigarette e-Cigarette/Vaping Use: Never Used Second Hand Smoke Exposure: No service: No 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 1. Little interest or pleasure in doing things: not at all 2. Feeling down, depressed, or hopeless: not at all 3. Trouble falling or staying asleep, or sleeping too much: not at all 4. Feeling tired or having little energy: not at all 5. Poor appetite or overeating: not at all 6. Feeling bad about yourself - or that you are a failure or have let yourself or your family down: not at all 7. Trouble concentrating on things, such as reading the newspaper or watching television: not at all 8. Moving or speaking so slowly that other people could have noticed. Or the opposite - being so fidgety or restless that you have been moving around a lot more than usual: not at all 9. Thoughts that you would be better off or of hurting yourself in some way: not at all Total score: 0 Depression Screening Interpretation: Negative Depression Screening Done: Yes Source: Developed by Drs. Shaun aLw, Julissa Sellers, Danny Lopez and colleagues, with an educational manisha from [employer]. Thrive Questionnaire Date Thrive assessed: 07/21/23 I am a: Patient Within the past 12 months, did the food you bought not last and you didn't have the money to get more?: Never true Within the past 12 months, did you worry whether your food would run out before you got money to buy more?: Never true Do you have trouble paying for medicines?: No Do you have trouble getting transportation to medical appointments?: No Do you have trouble paying your heating and electricity bill?: No Do you have trouble taking care of your child, family member or friend?: No Do you have trouble with day-to-day activities such as bathing, preparing meals, shopping, managing finances, etc.?: No Are you currently unemployed and looking for a job?: No Are you interested in more education?: No THRIVE Score: 0 AUDIT C Alcohol Use Questionnaire (AUDIT-C) 1. How often do you have a drink containing alcohol?: Never Total Score: 0 Score Reviewed/Action Taken: Yes NUHA-7 AMB Questionnaire NUHA-7 Date NUHA - 7 assessed: 07/21/23 Source: Developed by Drs. Shaun Law, Julissa Sellers, Danny Lopez and colleagues, with an educational manisha from [employer]. Review of Systems Const Denies chills, Denies headache(s) and Denies weight loss ENT Denies headache(s) Card Denies chest pain, Denies syncope, Denies irregular heart rhythm and Denies dyspnea Resp Denies chest congestion, Denies cough and Denies dyspnea GI Denies abdominal pain, Denies change in stool character, Denies nausea and Denies vomiting Musc Denies deformity and Denies joint swelling Neuro Denies syncope and Denies headache(s) Physical exam (Primary Care) Vital Signs: Last Vital Signs Pulse 105 H 02/29/24 10:29 BP 122/78 02/29/24 10:29 Pulse Ox 94 02/29/24 10:29 Oxygen Delivery Method Room Air 02/29/24 10:29 BMI result Body Mass Index 24.5 Tobacco/Smoking Status: Tobacco use Status Tobacco use date assessed 07/21/23 02/29/24 10:36 Patient Tobacco Use Status Former Tobacco user 02/29/24 10:36 Tobacco use type Cigarette 02/29/24 10:36 e-Cigarette/Vaping Use Never Used 02/29/24 10:36 PHQ-9: PHQ-9 Score PHQ-9: Total score 0 02/29/24 10:36 Depression Screening Interpretation: Negative Thrive Assessment: Date of Thrive Assessment Date Thrive assessed 07/21/23 02/29/24 10:36 Const General: cooperative, comfortable, no acute distress and alert Neck Neck: Yes no lymphadenopathy Thyroid: Thyroid normal Resp Effort & Inspection: normal respiratory effort Auscultation: clear to auscultation bilaterally Percussion: percussion normal Cardio Jugular venous distension: no JVD Palpation: normal PMI Rate: regular rate Rhythm: regular rhythm Heart sounds: S1 normal heart sound present and S2 normal heart sound present GI Inspection: Yes normal to inspection Palpation (GI): No hepatosplenomegaly present Skin General skin exam: no rashes or lesions noted Extrem General: Yes no clubbing, cyanosis or edema Assessment and Plan Assessment & Plan (1) Hypertension: Code(s): I10 - Essential (primary) hypertension Plan: stable ;same rx Orders: Orders Comprehensive [place]. Panel Fast Today Z13.9 - Encounter for screening, unspecified Lipid Panel Today Z13.220 - Encounter for screening for lipoid disorders Medications: Refilled lisinopril 5 mg PO DAILY 90 tabs 8RF atorvastatin 10 mg PO BEDTIME 90 tabs 8RF Coding Level of Care Code Est Pt Level 3 (18243) Diagnoses Hypertension I10
== END 2024-02-29 10:51 | disposition home or self-care (01) ==
PROVIDERS: PCP Internal Medicine; Visit Provider Internal Medicine
DX: I10 Essential (primary) hypertension (principal)
CPT/HCPCS: 99213

== ENCOUNTER 2024-06-06 08:43 | Outpatient (REF) | payer MEDICARE, SELFPAY ==
[2024-06-06 09:39] LABS: Alanine Aminotransferase 22 U/L (0-31); Albumin Level 4.3 g/dL (3.5-5.0); Alkaline Phosphatase 61 U/L (39-117); Anion Gap 9 (12-20); Aspartate Amino Transferase 29 U/L (5-31); Bilirubin Total 0.6 mg/dL (0.0-1.0); Blood Urea Nitrogen 10 mg/dL (9-16); Calcium 9.2 mg/dL (8.4-10.2); Carbon Dioxide 29 mmol/L (22-29); Chloride 104 mmol/L (96-108); Cholesterol 153 mg/dL (<200); Estimated Glomerular Filt Rate > 60; Glucose Fasting 145 mg/dL (60-99); Glucose Random 143 mg/dL (60-115); HDL Cholesterol 34 mg/dL (>40); LDL Cholesterol Calculated 98 mg/dL (<100); Sodium 138 mmol/L (135-145); Total Protein 7.5 g/dL (6.5-8.0); Triglycerides 105 mg/dL (<150)
[2024-06-13 15:53] LABS: Vitamin D 25-OH, D2 <4 ng/mL; Vitamin D 25-OH, D3 53 ng/mL; Vitamin D 25-OH, Total 53 ng/mL (30-100)
== END 2024-06-06 08:44 | disposition home or self-care (01) ==
LOC: HO.LAB 08:43
PROVIDERS: Student in an Organized Health Care Education/Training Program; PCP Internal Medicine; Visit Provider Internal Medicine
DX: M81.0 Age-related osteoporosis without current pathological fracture (principal); Z13.9 Encounter for screening, unspecified; Z13.220 Encounter for screening for lipoid disorders
CPT/HCPCS: 36415; 80053; 80061; 82306

== ENCOUNTER 2024-06-30 10:43 | Outpatient (AMB) | payer MEDICARE, SELFPAY ==
--- OUTSIDE RECORDS SUMMARY | 2024-06-30 10:46 | XMS_ITS | Continuity of Care Document ---
Author Organization [facility] Address [address] [place] [address]- Care Team Providers Care Fulfillment Mail Clerk Name Role Phone Not on Staff, PCP Primary Care Physician Unavail able [place] [facility] [place] - 06/01/24 [facility] [address] [place], [place] [address] Encounter Type: Triage Allergies, Adverse Reactions, Alerts Substance Criticality Severity Reaction Reaction Severity Status Percocet Active Medications Albuterol (Eqv-ProAir HFA) 90 mcg/inh inhalation aerosol INHALE 2 PUFFS BY MOUTH EVERY 6 HOURS NEEDED FOR BRONCHOSPASM Start Date: 12/24/23 Status: Ordered Repeat number: 1 atorvastatin 10 mg oral tablet TAKE 1 TABLET BY MOUTH EVERYDAY AT BEDTIME Start Date: 12/24/23 Status: Ordered Repeat number: 1 lisinopril 5 mg oral tablet TAKE 1 TABLET BY MOUTH EVERY DAY Start Date: 12/24/23 Status: Ordered Repeat number: 1 Reclast 5 mg/100 mL intravenous solution = 5 mg, IV Infusion, Once, 0 Refills, Maintenance, 05/04/24 10:27:00 AM EDT, Partial fill upon patient request if the prescription is for a schedule II opioid drug. Start Date: 05/04/24 Status: Ordered Repeat number: 1 Patient Care team information Care Team Personnel Name: Not on Staff, PCP Position: S Physician (General Medicine) Member Role: PCP Insurance Providers Guarantor name: NA Health Plan Information #: 1 Payer: MEDICARE PART B OUTPT Member Number: NA Policy Number: NA Group Number: NA
--- OUTSIDE RECORDS SUMMARY | 2024-06-30 10:46 | XMS_ITS | Patient Health Record ---
Author Organization [facility] Address [address] [place] [address] Care Team Providers Care Driller Hand Name Role Phone Raegan PELAEZ, Mike Primary Care Provider Erwin Pena Jr Unavailable [phone] REASON FOR REFERRAL No Information MEDICATIONS Medication SIG (Take, Route, Frequency, Duration) Notes Start Date End Date Status Lisinopril 5 MG TAKE 1 TABLET BY NEHA TH EVERY DAY Oral for 90 Active ProAir HFA 108 (90 Base) MCG/ACT 2 puffs as needed Inhalation every 4 hrs Active Colyte with Flavor Packs 240 GM As directed Orally Over the specified time. for 1 day(s) 10/24/2015 Active hydrOXYzine HCl 25 MG 1 tablet as needed Orally every 8 hrs Active Atorvastatin Calcium 10 MG TAKE 1 TABLET BY MOUTH EVERY DAY Oral for 30 Active SOCIAL HISTORY Sex Assigned At : Social History Observation Description Sex Assigned At Unknown PROBLEMS Problem Type ICD Code Onset Dates Problem Status W/U Status Risk SNOMED Code Notes Problem Colon cancer screening (V76.51) Active confirmed 265797118 Problem Personal history of colonic polyps (Z86.010) Active confirmed [id number] PLAN OF TREATMENT Future Test Test Name Order Date COLONOSCOPY 05/31/2014 COLONOSCOPY 10/24/2015 Insurance Providers Payer Name Payer Address Payer Phone Subscriber Number Group Number Insured Name Patient Relationship to Insured Coverage Start Date Coverage End Date MEDICARE OF [place] [address] ASH[place] BRAUN [address] [id number] DARÍO PANDEY Self - patient is the insured MEDEX ATTN CLAIMS [address] [place] [address] [id number] DARÍO PANDEY Self - patient is the insured MEDICAL (GENERAL) HISTORY Medical History History ICD Code colonoscopy 01/24/2009 elevated Cholesterol hypertension asthma Denies [place],DM,CVA,renal disease Surgical History Surgery Date(Month/Year) lumpectomy, left breast lumpectomy, right breast
--- OUTSIDE RECORDS SUMMARY | 2024-06-30 10:46 | XMS_ITS | Continuity of Care Document ---
Author Organization [facility] Address [address] [place] [address]- Care Team Providers Care Client Experience Specialist Name Role Phone Not on Staff, PCP Primary Care Physician Unavail able [place] [facility] [place] [facility] [address] [place], [place] [address] Encounter Type: Triage Allergies, Adverse Reactions, Alerts [...]
--- NOTE | 2024-06-30 10:56 | AM.OFFVISMDC ---
Intake Vital Signs 06/30/24 10:58 Height 5 ft 2 in Weight 136 lb 8 oz BMI 25.0 BP 120/78 Blood Pressure Location Lt brachial Position Sitting Pulse 93 Pulse Source Pulse Oximeter Pulse Oximetry (%) 96 Oxygen Delivery Method Room Air Intake Visit Reasons: V G0439 Intake Note: Patient is here for an Annual Wellness Visit. Woodworking Machine Feeder Required: Yes Woodworking Machine Feeder Language: Front End Software Engineer Services: Woodworking Machine Feeder Present Information Interpreted: non-clinical & clinical Operator/Assistant Foreman: Operator/Assistant Foreman offered & declined Accompanied by: Self / Same As Patient Allergies oxycodone [From PERCOCET] Allergy (Unknown, Verified 06/30/24 10:57) ITCHY/RASH Medication List - Last Reconciled 07/01/24 by Mike Carlin MD acetaminophen ER (Tylenol 8 Hour) 650 mg PO Q8H PRN albuterol sulfate 90 mcg/actuation (ProAir HFA) 2 puffs PO Q6H PRN atorvastatin 10 mg PO BEDTIME benzonatate 200 mg PO TID PRN denosumab (Prolia) 60 mg subcut I8EVLEIS diphenhydramine HCl (Benadryl) 25 mg PO TID PRN lisinopril 5 mg PO DAILY loratadine 10 mg PO DAILY PRN naproxen 500 mg PO BID PRN sulfacetamide sodium 10% 1 drp ophthalmic (eye) Q4H 5 days tramadol 50 mg PO Q8H HPI SWV G0439 HPI Details hyperlipidemia and hypertension; stable; still works PFSH Medical History Osteoporosis Elevated parathyroid hormone Hypovitaminosis D Rib fractures Hyperlipidemia Osteoporosis Hypertension Surgical History H/O rectal polypectomy History of surgery History of breast surgery History of colonoscopy Family History Father Colon cancer Mother CVD (cardiovascular disease) Brother Alcoholism Paternal Uncle Stomach cancer Sister Diabetes Kidney failure, acute Other Osteoporosis Social History Household Members: None Housing: Apartment Alcohol intake: never Patient Tobacco Use Status: Former Tobacco user Tobacco use type: Cigarette e-Cigarette/Vaping Use: Never Used Second Hand Smoke Exposure: No service: No 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 (For eg., can you travel alone on buses, taxis or drive your car?): No Can you go shopping for groceries or clothes without someone's help?: No Can you prepare your own meals?: No Can you do your housework without help?: Yes Because of any health problems, do you need the help of another person with your personal care needs such as eating, bathing, dressing or getting around the house?: No Can you handle your own money without help?: Yes During the past 4 weeks, how would you rate your health in general?: very good Have you been given information to help with the following?: yes: Keeping track of your medications? and no: Hazards in your house that might hurt you? How often do you have trouble taking medicines the way you have been told to take them?: I always take medicine as prescribed What is your race?: or origin or descent Mini Mental State Exam (MMSE) Orientation What is the (year) (season) (date) (day) (month)?: year, season, date, day and month Where are we (state) (county) (town or city) (hospital) (floor)?: state, county, town or city, hospital/clinic and floor Registration Name of 3 unrelated objects clearly and slowly, then ask patient to repeat all 3 of them. (1st repeat determines score. Make sure they can repeat all three): object 1, object 2 and object 3 Score Score: 13 Activity of Daily Living Bathing - sponge bath, tub bath or shower: receives no assistance (gets in/out by self, if usual bathing means Dressing - getting clothes from closets & drawers, including inner/outer garments & fasteners.: gets clothes & gets completely dressed without help Toileting - going to the 'toilet room' for urine/bowel elimination & cleaning self/arranging clothes: goes to toilet room, cleans self, arranges clothes without help Transfer: moves in & out of bed and chair without help (may use support object) Continence: controls urination/bowel movements completely by self Feeding: feeds self without help Total Score: 0 Information obtained from: patient Using telephone: independent Traveling: independent Shopping: independent Preparing meals: independent Housework: independent Taking medicine: independent Managing money: independent PHQ-9 Over the last 2 weeks, how often have you been bothered by any of the following problems? 1. Little interest or pleasure in doing things: not at all 2. Feeling down, depressed, or hopeless: not at all 3. Trouble falling or staying asleep, or sleeping too much: not at all 4. Feeling tired or having little energy: not at all 5. Poor appetite or overeating: not at all 6. Feeling bad about yourself - or that you are a failure or have let yourself or your family down: not at all 7. Trouble concentrating on things, such as reading the newspaper or watching television: not at all 8. Moving or speaking so slowly that other people could have noticed. Or the opposite - being so fidgety or restless that you have been moving around a lot more than usual: not at all 9. Thoughts that you would be better off or of hurting yourself in some way: not at all Total score: 0 Depression Screening Interpretation: Negative Depression Screening Done: Yes 41235 - PHQ-9 Billing: Yes Source: Developed by Drs. Sahun Law, Danny Sue and colleagues, with an educational manisha from [employer]. Thrive Questionnaire Date Thrive assessed: 07/21/23 NUHA-7 AMB Questionnaire NUHA-7 Date NUHA - 7 assessed: 07/21/23 Source: Developed by Drs. Shaun Law, Danny Sue and colleagues, with an educational manisha from [employer]. Review of Systems Const Denies chills, Denies fatigue, Denies headache(s) and Denies weight loss Eyes Denies change in vision, Denies diplopia and Denies eye pain ENT Reports Normal hearing present, Denies vertigo, Denies dizziness, Denies headache(s) and Denies nasal discharge Card Denies chest pain, Denies rapid heart rate and Denies dyspnea on exertion Resp Denies chest congestion, Denies cough, Denies pain with cough and Denies dyspnea on exertion GI Denies abdominal pain, Denies hematochezia and Denies change in bowel habits Musc Denies myalgias, Denies arthralgias and Denies joint swelling Skin/Breast Denies lesions and Denies unusual bruising Neuro Reports Normal hearing present, Denies vertigo, Denies dizziness, Denies headache(s) and Denies focal weakness Endo Denies fatigue Physical Exam Vital Signs: Last Vital Signs Pulse 93 06/30/24 10:58 BP 120/78 06/30/24 10:58 Pulse Ox 96 06/30/24 10:58 Oxygen Delivery Method Room Air 06/30/24 10:58 BMI result Body Mass Index 25.0 Neuro Cranial nerves: Yes Normal hearing present Assessment & Plan Assessment & Plan (1) Encounter for initial annual wellness visit (AWV) in Medicare patient: Code(s): Z00.00 - Encounter for general adult medical examination without abnormal findings Plan: rhomberg and whisper tests nl; all forms gived to patient (2) Hyperlipidemia: Code(s): E78.5 - Hyperlipidemia, unspecified Plan: stable; same rx (3) Hypertension: Code(s): I10 - Essential (primary) hypertension Plan: stable; same rx Orders: Orders Lipid Panel Today Z13.220 - Encounter for screening for lipoid disorders Quality Reporting (2019) Depression/Bipolar (159/160/161/177) PHQ-9: Total score: 0 Coding Level of Care Code Medicare First (G0438) Diagnoses Encounter for initial annual wellness visit (AWV) in Medicare patient Z00.00 Hyperlipidemia E78.5 Hypertension I10 CPT Codes Advance Care Planning - Advance Care Planning discussion: On file, no changes ([id number]) Additional Codes PHQ-9 - 00255 - PHQ-9 Billing: Yes ([id number]) Advance Care Planning Advance Care Planning discussion: On file, no changes Forms completed: Health Care Proxy
[2024-06-30 10:58] VITALS: BP 120/78; PULSE 93; O2SAT 96; BMI 25.0
== END 2024-06-30 11:07 | disposition home or self-care (01) ==
PROVIDERS: PCP Internal Medicine; Visit Provider Internal Medicine
DX: Z00.00 Encounter for general adult medical examination without abnormal findings (principal); E78.5 Hyperlipidemia, unspecified; I10 Essential (primary) hypertension

== ENCOUNTER → 2024-06-30 10:43 | Outpatient (BNVA) | payer MEDICARE, SELFPAY | PROVIDERS: PCP Internal Medicine; Visit Provider Internal Medicine | DX: Z00.00 Encounter for general adult medical examination without abnormal findings (principal); E78.5 Hyperlipidemia, unspecified; I10 Essential (primary) hypertension | CPT/HCPCS: 96127; 99212 ==

== ENCOUNTER 2024-07-20 10:09 | Outpatient (AMB) | payer MEDICARE, SELFPAY ==
--- OUTSIDE RECORDS SUMMARY | 2024-07-20 10:25 | XMS_ITS | Patient Health Record ---
Author Organization [facility] Address [address] [place] [address] Care Team Providers Care Welder Fitter Helper Name Role Phone Raegan PELAEZ, Mike Primary Care Provider Erwin Pena Jr Unavailable REASON FOR REFERRAL No Information MEDICATIONS Medication [...] Problem Colon cancer screening (V76.51) Active confirmed [id number] Problem Personal history of colonic polyps (Z86.010) Active confirmed [id number] PLAN OF TREATMENT Future Test Test Name Order Date COLONOSCOPY 05/31/2014 COLONOSCOPY 10/24/2015 Insurance Providers Payer Name Payer Address Payer Phone Subscriber Number Group Number Insured Name Patient Relationship to Insured Coverage Start Date Coverage End Date MEDICARE OF [place] [address] [place] [address] [id number] DARÍO PANDEY Self - patient is the insured MEDEX ATTN CLAIMS [address] [place] [address] [id number] DARÍO PANDEY Self - patient is the insured MEDICAL (GENERAL) HISTORY Medical History History ICD Code colonoscopy 01/24/2009 elevated Cholesterol hypertension asthma Denies [place],DM,CVA,renal disease Surgical History Surgery Date(Month/Year) lumpectomy, left breast lumpectomy, right breast
--- NOTE | 2024-07-20 10:30 | A.OFFVIS_ITS ---
Vital Signs 07/20/24 10:34 Height 5 ft 2 in Weight 138 lb 0.15 oz BMI 25.2 BP 115/70 Blood Pressure Location Lt brachial Position Sitting Pulse 90 Pulse Source Pulse Oximeter Pulse Oximetry (%) 94 Oxygen Delivery Method Room Air Intake Visit Reasons: Osteoporosis Intake Note: Patient presents for Osteoporosis. Service Delivery Manager Required: Yes Service Delivery Manager Language: Cyber Security Consultant Services: Service Delivery Manager Present Service Delivery Manager Name: Dwayne [id number] Information Interpreted: non-clinical & clinical Allergies oxycodone [From PERCOCET] Allergy (Unknown, Verified 07/20/24 10:34) ITCHY/RASH Medication List - Last Reconciled 07/20/24 by Maite Reaves MD acetaminophen ER (Tylenol 8 Hour) 650 mg PO Q8H PRN albuterol sulfate 90 mcg/actuation (ProAir HFA) 2 puffs PO Q6H PRN atorvastatin 10 mg PO BEDTIME benzonatate 200 mg PO TID PRN diphenhydramine HCl (Benadryl) 25 mg PO TID PRN lisinopril 5 mg PO DAILY loratadine 10 mg PO DAILY PRN naproxen 500 mg PO BID PRN sulfacetamide sodium 10% 1 drp ophthalmic (eye) Q4H 5 days tramadol 50 mg PO Q8H HPI Comments Details: Patient is a 73-year-old Greek-speaking female with hyperlipidemia, hypertension who presents for follow up of osteoporosis complicated by history of rib fractures. Spoke with patient in shoshone-bannock language. Interval History: Patient last seen 10/09/2023. At that time she was establishing care for the management of osteoporosis She got her 1st Prolia injection 10/2023. And was due 04/2024 however she states that she got an IV infusion at [facility]. Patient does not know the name of the doctor who prescribed it or the name of the medication that she received. She only told me that she knows that they told her that the medication was for osteoporosis and that she would only need to get the medication once a year. She denies any falls or recent fractures. Rheumatologic History: Patient establish care 10/09/2023 with Celeste Dye. At that time she was establishing care for low bone density with her highest T-score -3.8 of the left femur neck. Her AP spine was -3.3, and her left femur was -3.2. Given her T- score and her history of rib fractures she met the criteria for osteoporosis. She was previously on alendronate for 2 years (had bone density 08/07/2021), however her bone density worsened and so she was referred to Rheumatology for further management. At that initial visit the decision was made to start Prolia. She received 1 dose 10/2023. She was do a 2nd dose in 04/2024 however she states that she got an ?infusion? at [facility] that is a yearly infusion ?Reclast Strong family history of osteoporosis involving her 3 sisters. Current Rheumatology Medication(s): Prolia 60mg SC x 1 dose 10/2023 ?Reclast IV infusion, 1st dose 04/2024 [facility] Medical History (Updated 07/20/24 @ 12:05 by Maite Reaves MD) Encounter for monitoring bisphosphonate therapy Osteoporosis Elevated parathyroid hormone Hypovitaminosis D Rib fractures Hyperlipidemia Osteoporosis Hypertension Surgical History H/O rectal polypectomy History of surgery History of breast surgery History of colonoscopy Family History Father Colon cancer Mother CVD (cardiovascular disease) Brother Alcoholism Paternal Uncle Stomach cancer Sister Diabetes Kidney failure, acute Other Osteoporosis Social History Household Members: None Housing: Apartment Alcohol intake: never Patient Tobacco Use Status: Former Tobacco user Tobacco use type: Cigarette e-Cigarette/Vaping Use: Never Used Second Hand Smoke Exposure: No service: No Current occupational status: employed 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 Current occupational exposures/hazards: No Cognitive needs: No Hearing needs: No Vision needs: Yes Review of Systems Const Details: Review of Systems Constitutional: Denies fever, chills, weight loss ENT: Denies vision changes, eye pain or eye redness, dental caries, dry mouth GI: Denies nausea, vomiting, diarrhea, abdominal pain, change in BM Pulm: Denies SOB, ARCHULETA, hemoptysis, wheezing Cards: Denies chest pain, palpitations Skin: Denies Raynaud's, rash, nail changes, photosensitivity, ASSEMBLER ERECTOR: Denies headaches, weakness, paresthesias, recurrent falls MSK: as per HPI All other systems reviewed and are unremarkable except noted above Physical Exam Vital Signs: Last Vital Signs Pulse 90 07/20/24 10:34 BP 115/70 07/20/24 10:34 Pulse Ox 94 07/20/24 10:34 Oxygen Delivery Method Room Air 07/20/24 10:34 BMI result Body Mass Index 25.2 Physical Examination CONSTITUITIONAL Patient alert and cooperative. Well appearing and in no apparent painful distress HEENT Conjunctiva and sclera clear. ?Pupils equal round and reactive to light. ?No lymphadenopathy. ? CHEST/RESPIRATORY SYSTEM Normal respiratory effort and able to speak in complete sentences. ?Clear to auscultation bilaterally. ?No crackles, rales, rhonchi, wheezes heard. CARDIAC SYSTEM Regular rate and rhythm. ?S1 and S2 heard no murmurs. 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 ?No tenderness to palpation of these joints. Heberden's nodes noted throughout joints. Wrists: ?Full range of motion at the wrists without pain. ?No tenderness to palpation or synovitis noted to the wrists. Elbows: Full range of motion without pain. No tenderness, weakness, swelling, increased warmth or erythema. Shoulders: Full range of motion without pain. No tenderness, weakness, swelling, increased warmth or erythema. Hips: Full range of motion without pain. Hip bursa: No tenderness to palpation Knees: ?Full range of motion. ?No tenderness, swelling, increased warmth or erythema.?No effusion or crepitations Ankles: Full range of motion. ?No tenderness, swelling, increased warmth or erythema.? Feet: ?Negative squeeze test. ?No tenderness to palpation or swelling of the MTPs. Tender points:?No tenderness to palpation of the bilateral trapezius, supraspinatus, greater trochanters, anterior costochondral junctions, bilateral gluteal areas, bilateral suboccipital muscle insertions SKIN Skin intact without rashes. Results Reviewed Results Reviewed: Laboratory Tests 11/28/23 06/06/24 13:00 08:54 WBC 6.6 RBC 4.66 Hgb 14.8 Hct 44.8 Plt Count 281 Sodium 138 Potassium 4.0 Chloride 104 Carbon Dioxide 29 BUN 10 Creatinine 0.76 AST 29 ALT 22 Alkaline Phosphatase 61 25-OH Vitamin D Total 53 Assessment & Plan Assessment & Plan (1) Osteoporosis: Code(s): M81.0 - Age-related osteoporosis without current pathological fracture Category: Medical Qualifiers: Osteoporosis type: age-related Presence of current pathological fracture: without current pathological fracture Qualified Code(s): M81.0 - Age- related osteoporosis without current pathological fracture Plan: #Osteoporosis Patient is a 73-year-old female with osteoporosis affecting her spine and her hip as well as her femur. Previously she was on alendronate with worsening of her bone density. She was started on 1 dose of Prolia however this was switched to Reclast by another physician. We will need to follow up with the patient and make sure that she is actually getting infusions for her osteoporosis. Plan - CBC, CMP, Vit D - Vitamin D supplementation - Weight bearing exercises - Calcium rich food intake - RTC 6 months (2) Encounter for monitoring bisphosphonate therapy: Code(s): Z51.81 - Encounter for therapeutic drug level monitoring; Z79.83 - penitentiary (current) use of bisphosphonates Category: Medical Plan: #Long-term Use of Bisphosphonates Risks and benefits of bisphosphonates in the management of osteoporosis Benefits include improved bone density, decreased fracture risk Risks include atypical femoral fractures, GI upset, esophageal strictures Contraindicated in patients with a creatinine clearance < 30 to 35 ml/min Keep vitamin-D at least 35 ng/mL Plan I spent 20 minutes reviewing the record and labs, taking a history, examining the patient, discussing the treatment plan and documenting in the medical record Orders: Orders Parathyroid Hormone Intact 6 Months E55.9 - Vitamin D deficiency, unspecified, M81.0 - Age-related osteoporosis without current pathological fracture Protein Electrophoresis, Serum 6 Months E55.9 - Vitamin D deficiency, unspecified, M81.0 - Age-related osteoporosis without current pathological fracture Collagen Type I C-Telopeptide 6 Months E55.9 - Vitamin D deficiency, unspecified, M81.0 - Age-related osteoporosis without current pathological fracture Comprehensive Met. Panel 6 Months E55.9 - Vitamin D deficiency, unspecified, M81.0 - Age-related osteoporosis without current pathological fracture Vitamin D 25-OH (D2 and D3) 6 Months E55.9 - Vitamin D deficiency, unspecified, M81.0 - Age-related osteoporosis without current pathological fracture Coding Level of Care Code Est Pt Level 3 (98764) Diagnoses Age-related osteoporosis without current pathological fracture M81.0 Osteoporosis type: age-related Presence of current pathological fracture: without current pathological fracture Encounter for monitoring bisphosphonate therapy Z51.81; Z79.83
[2024-07-20 10:34] VITALS: BP 115/70; PULSE 90; O2SAT 94; BMI 25.2
== END 2024-07-20 10:58 | disposition home or self-care (01) ==
PROVIDERS: PCP Internal Medicine; Visit Provider Student in an Organized Health Care Education/Training Program
DX: M81.0 Age-related osteoporosis without current pathological fracture (principal); Z51.81 Encounter for therapeutic drug level monitoring; Z79.83 Long term (current) use of bisphosphonates
CPT/HCPCS: 99213

== ENCOUNTER → 2024-07-20 10:09 | Outpatient (BNVA) | payer MEDICARE, SELFPAY | PROVIDERS: PCP Internal Medicine; Visit Provider Student in an Organized Health Care Education/Training Program | DX: M81.0 Age-related osteoporosis without current pathological fracture (principal); Z51.81 Encounter for therapeutic drug level monitoring; Z79.83 Long term (current) use of bisphosphonates | CPT/HCPCS: 99212 ==

== ENCOUNTER → 2024-08-18 13:15 | Outpatient (BNV) | payer MEDICARE, SELFPAY | PROVIDERS: PCP Internal Medicine; Visit Provider Internal Medicine | DX: Z12.31 Encounter for screening mammogram for malignant neoplasm of breast (principal) | CPT/HCPCS: 77063; 77067 ==

== ENCOUNTER 2024-09-20 13:17 | Outpatient (AMB) | payer MEDICARE, SELFPAY ==
--- NOTE | 2024-09-20 13:21 | A.OFFPC_ITS ---
Vital Signs 09/20/24 13:23 Height 5 ft 2 in Weight 135 lb BMI 24.7 BP 120/64 Blood Pressure Location Lt brachial Position Sitting Pulse 110 H Pulse Source Pulse Oximeter Temp 97.5 F Temp Source Temporal Artery Scan Pulse Oximetry (%) 98 Oxygen Delivery Method Room Air Intake Visit Reasons: 3mth f/u Intake Note: Patient is here to follow up on HTN, HLD. Steam Table Associate Required: No Grain Oilseed Or Pasture Farm Manager: Not Required per policy Accompanied by: Self / Same As Patient Allergies oxycodone [From PERCOCET] Allergy (Unknown, Verified 09/20/24 13:22) ITCHY/RASH Medication List - Last Reconciled 09/20/24 by Mike Carlin MD acetaminophen ER (Tylenol 8 Hour) 650 mg PO Q8H PRN albuterol sulfate 90 mcg/actuation (ProAir HFA) 2 puffs PO Q6H PRN atorvastatin 10 mg PO BEDTIME benzonatate 200 mg PO TID PRN diphenhydramine HCl (Benadryl) 25 mg PO TID PRN lisinopril 5 mg PO DAILY loratadine 10 mg PO DAILY PRN naproxen 500 mg PO BID PRN sulfacetamide sodium 10% 1 drp ophthalmic (eye) Q4H 5 days tramadol 50 mg PO Q8H Tobacco use date assessed: 09/20/24 Fall risk assessment: No Falls in past year Last assessed Fall Risk: 09/20/24 Dental Screening Dental Screen Date: 09/20/24 Did you have a dental visit in the last 12 months?: Yes Did you have a dental problem in the last 6 months where you did not have access to dental care?: No Was dental information given to patient?: Patient has dentist HPI 3mth f/u HPI Details HTN on Rx; doing well and compliant [facility] Medical History (Updated 07/20/24 @ 12:05 by Maite Reaves MD) Encounter for monitoring bisphosphonate therapy Osteoporosis Elevated parathyroid hormone Hypovitaminosis D Rib fractures Hyperlipidemia Osteoporosis Hypertension Surgical History H/O rectal polypectomy History of surgery History of breast surgery History of colonoscopy Family History Father Colon cancer Mother CVD (cardiovascular disease) Brother Alcoholism Paternal Uncle Stomach cancer Sister Diabetes Kidney failure, acute Other Osteoporosis Social History Household Members: None Housing: Apartment Alcohol intake: never Patient Tobacco Use Status: Former Tobacco user Tobacco use type: Cigarette e-Cigarette/Vaping Use: Never Used Second Hand Smoke Exposure: Yes service: No 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 1. Little interest or pleasure in doing things: not at all 2. Feeling down, depressed, or hopeless: not at all 3. Trouble falling or staying asleep, or sleeping too much: not at all 4. Feeling tired or having little energy: not at all 5. Poor appetite or overeating: not at all 6. Feeling bad about yourself - or that you are a failure or have let yourself or your family down: not at all 7. Trouble concentrating on things, such as reading the newspaper or watching television: not at all 8. Moving or speaking so slowly that other people could have noticed. Or the opposite - being so fidgety or restless that you have been moving around a lot more than usual: not at all 9. Thoughts that you would be better off or of hurting yourself in some way: not at all Total score: 0 Depression Screening Interpretation: Negative Depression Screening Done: Yes Source: Developed by Drs. Shaun Law, Julissa Sellers, Danny Lopez and colleagues, with an educational manisha from [employer]. Thrive Questionnaire Date Thrive assessed: 09/20/24 I am a: Patient What is your living situation today?: I have a steady place to live Within the past 12 months, did the food you bought not last and you didn't have the money to get more?: Never true Within the past 12 months, did you worry whether your food would run out before you got money to buy more?: Never true Do you have trouble paying for medicines?: No Do you have trouble getting transportation to medical appointments?: No Do you have trouble paying your heating and electricity bill?: No Do you have trouble taking care of your child, family member or friend?: No Do you have trouble with day-to-day activities such as bathing, preparing meals, shopping, managing finances, etc.?: No Are you currently unemployed and looking for a job?: No Are you interested in more education?: No Please select the resources that you would like help with: None Currently or been in a relationship where the following occur: No concerns reported THRIVE Score: 0 AUDIT C Alcohol Use Questionnaire (AUDIT-C) 1. How often do you have a drink containing alcohol?: Never Total Score: 0 NUHA-7 AMB Questionnaire NUHA-7 Date NUHA - 7 assessed: 09/20/24 Feeling nervous, anxious, or on edge: 0 = Not at all Not being able to stop or control worryin = Not at all Worrying too much about different things: 0 = Not at all Trouble relaxin = Not at all Being so restless that it is hard to sit still: 0 = Not at all Becoming easily annoyed or irritable: 0 = Not at all Feeling afraid as if something awful might happen: 0 = Not at all Total NUHA-7 score (0-4 normal; 5-9 mild; 10-14 moderate; 15-21 severe): 0 Source: Developed by Drs. Shaun Law, Julissa Sellers, Danny Lopez and colleagues, with an educational manisha from [employer]. Review of Systems Const Denies chills, Denies headache(s) and Denies weight loss ENT Denies headache(s) Card Denies chest pain, Denies syncope, Denies irregular heart rhythm and Denies dyspnea Resp Denies chest congestion, Denies cough and Denies dyspnea GI Denies abdominal pain, Denies change in stool character, Denies nausea and Denies vomiting Musc Denies deformity and Denies joint swelling Neuro Denies syncope and Denies headache(s) Physical exam (Primary Care) Vital Signs: Last Vital Signs Temp 97.5 F 09/20/24 13:23 Pulse 110 H 09/20/24 13:23 BP 120/64 09/20/24 13:23 Pulse Ox 98 09/20/24 13:23 Oxygen Delivery Method Room Air 09/20/24 13:23 BMI result Body Mass Index 24.7 Tobacco/Smoking Status: Tobacco use Status Tobacco use date assessed 09/20/24 09/20/24 13:28 Patient Tobacco Use Status Former Tobacco user 09/20/24 13:28 Tobacco use type Cigarette 09/20/24 13:28 e-Cigarette/Vaping Use Never Used 09/20/24 13:28 PHQ-9: PHQ-9 Score PHQ-9: Total score 0 09/20/24 13:28 Depression Screening Interpretation: Negative Thrive Assessment: Date of Thrive Assessment Date Thrive assessed 09/20/24 09/20/24 13:28 Currently or been in a relationship where the following occur: No concerns reported Const General: cooperative, comfortable, no acute distress and alert Neck Neck: Yes no lymphadenopathy Thyroid: Thyroid normal Resp Effort & Inspection: normal respiratory effort Auscultation: clear to auscultation bilaterally Percussion: percussion normal Cardio Jugular venous distension: no JVD Palpation: normal PMI Rate: regular rate Rhythm: regular rhythm Heart sounds: S1 normal heart sound present and S2 normal heart sound present GI Inspection: Yes normal to inspection Palpation (GI): No hepatosplenomegaly present Skin General skin exam: no rashes or lesions noted Extrem General: Yes no clubbing, cyanosis or edema Coding Level of Care Code Est Pt Level 3 (87117) Diagnoses Hypertension I10 Assessment & Plan Assessment & Plan (1) Hypertension: Code(s): I10 - Essential (primary) hypertension Category: Medical Plan: stable; same rx
[2024-09-20 13:23] VITALS: BP 120/64; PULSE 110; TEMP 36.4; O2SAT 98; BMI 24.7
--- OUTSIDE RECORDS SUMMARY | 2024-09-20 16:05 | XMS_ITS | Patient Health Record ---
Author Organization [facility] Address [address] [place] [address] Care Team Providers Care Loader Operator/Ground Leader Name Role Phone Raegan PELAEZ, Mike Primary Care Provider Erwin Pena Jr Unavailable Reason For Referral No Information Medications Medication SIG (Take, Route, Frequency, Duration) Notes [...] MOUTH EVERY DAY Oral for 30 Active Problems Problem Type SNOMED Code ICD Code Onset Dates Problem Status W/U Status Risk Notes Problem [id number] Colon cancer screening (V76.51) Active confirmed Problem 240909650 Personal history of colonic polyps (Z86.010) Active confirmed Plan Of Treatment Future Test Test Name Order Date COLONOSCOPY 05/31/2014 COLONOSCOPY 10/24/2015 Insurance Providers Payer Name Payer Address Payer Phone Subscriber Number Group Number Insured Name Patient Relationship to Insured Coverage Start Date Coverage End Date MEDICARE OF [place] [address] [place] [id number] DARÍO PANDEY Self - patient is the insured [employer] ATT[employer] CLAIMS [address] [place] [phone] [id number] DARÍO PANDEY Self - patient is the insured Medical (General) History Medical History History ICD Code colonoscopy 01/24/2009 elevated Cholesterol hypertension asthma Denies MS,DM,CVA,renal disease Surgical History Surgery Date(Month/Year) lumpectomy, left breast lumpectomy, right breast
== END 2024-09-20 13:46 | disposition home or self-care (01) ==
PROVIDERS: PCP Internal Medicine; Visit Provider Internal Medicine
DX: I10 Essential (primary) hypertension (principal)

== ENCOUNTER → 2024-09-20 13:17 | Outpatient (BNVA) | payer MEDICARE, SELFPAY | PROVIDERS: PCP Internal Medicine; Visit Provider Internal Medicine | DX: I10 Essential (primary) hypertension (principal) | CPT/HCPCS: 99212 ==

== ENCOUNTER 2024-10-01 13:09 | Emergency (ER) | payer MEDICARE, SELFPAY ==
--- NOTE | ~2024-10-01 | XR_ITS ---
CLINICAL HISTORY: cp, cough 2 view chest x-ray Comparison: CR/SR - XR CHEST 2V - 11/28/23 08:23 EDT Findings: No consolidation or effusion. Heart size is normal. No acute fracture. IMPRESSION: 1. No acute findings. This document has been electronically signed by: Bri Marie MD on 10/01/2024 14:06:12
[2024-10-01 13:18] VITALS: BP 134/84; PULSE 84; RESP 22; TEMP 37; O2SAT 98; BMI 23.3
--- NOTE | 2024-10-01 13:19 | ED_ITS ---
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 Does not have any inhalers or nebulizer at home. States cough is productive of white sputum. Denies fevers. Pain with coughing. No known sick contacts. Denies chest pain or palpitations. Associated sore throat. Denies calf pain or swelling, pedal edema. MD elicited complaint: shortness of breath and cough Pertinent past history: asthma Onset (ago): day(s) Timing: constant Known history of: asthma Associated symptoms: cough Treatment prior to arrival: none Related Data Previous Rx's ?Medication ?Instructions ?Recorded naproxen 500 mg tablet 500 mg PO BID PRN pain #20 tabs 10/16/22 diphenhydramine HCl 25 mg capsule 25 mg PO TID PRN allergic reaction 11/16/22 (Benadryl) #20 caps loratadine 10 mg tablet 10 mg PO DAILY PRN allergic 11/16/22 symptoms #30 tabs sulfacetamide sodium 10 % eye drops 1 drp ophthalmic (eye) Q4H 5 days 11/16/22 #15 mL tramadol 50 mg tablet 50 mg PO Q8H pain #20 tabs 05/22/23 acetaminophen 650 mg 650 mg PO Q8H PRN pain #20 tabs 06/17/23 tablet,extended release (Tylenol 8 Hour) albuterol sulfate 90 mcg/actuation 2 puff PO Q6H PRN bronchospasm #18 10/30/23 aerosol inhaler (ProAir HFA) grams benzonatate 200 mg capsule 200 mg PO TID PRN cough #20 caps 11/28/23 atorvastatin 10 mg tablet 10 mg PO BEDTIME #90 tabs 09/28/24 lisinopril 5 mg tablet 5 mg PO DAILY #90 tabs 09/28/24 Allergies Allergy/AdvReac Type Severity Reaction Status Date / Time oxycodone [From PERCOCET] Allergy Unknown ITCHY/RASH Verified 10/01/24 13:23 Review of Systems Review of Systems: As per HPI Yes all other systems are reviewed and are negative Constitutional: Constitutional: Reports as per HPI [facility] Past Medical History Medical History (Updated 10/01/24 @ 17:34 by Aileen Garcia NP) Encounter for monitoring bisphosphonate therapy Osteoporosis Elevated parathyroid hormone Hypovitaminosis D Rib fractures Hyperlipidemia Osteoporosis Hypertension Surgical History H/O rectal polypectomy History of surgery History of breast surgery History of colonoscopy Family History Family History Father Colon cancer Mother CVD (cardiovascular disease) Brother Alcoholism Paternal Uncle Stomach cancer Sister Diabetes Kidney failure, acute Other Osteoporosis Social History Social History Household Members: None Housing: Apartment Alcohol intake: never Patient Tobacco Use Status: Former Tobacco user Tobacco use type: Cigarette e-Cigarette/Vaping Use: Never Used Second Hand Smoke Exposure: Yes Advance Directives: No Advance Directives Information Provided: No service: No Current occupational status: employed 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 Blood pressure normal. Heart rate normal. Respiratory rate normal. Temperature normal. Oxygen saturation normal. Const: General: cooperative, healthy appearing and no acute distress Orientation/consciousness: oriented to person, oriented to place, oriented to time and patient oriented x3 Limitations: no limitations HEENT: Head: Yes normocephalic and Yes atraumatic Ears: external ears normal General nose exam: Normal external nose present Face and sinus: Yes face symmetric Mouth: oropharynx normal and moist mucous membranes Throat: Yes uvula midline Eyes: Pupils: Equal, round and reactive pupils present Neck: Neck: Yes normal visual inspection and Yes supple Resp: Effort & Inspection: normal respiratory effort and able to speak in complete sentences Auscultation: wheezes expiratory wheezes, inspiratory wheezes and upper bilaterally Cardio: Rate: regular rate Rhythm: regular rhythm Heart sounds: S1 normal heart sound present and S2 normal heart sound present GI: Palpation (GI): Soft to palpation and nontender Auscultation: normoactive bowel sounds : General: Yes no CVA tenderness Back/Spine/Pelvis: Back: no CVA tenderness Skin: General skin exam: elasticity normal and turgor normal Neuro: General: oriented to person, oriented to place, oriented to time, patient oriented x3, moves all extremities, no focal motor deficits and CN's II- XI intact bilaterally Cranial nerves: Yes Equal, round and reactive pupils present Cognition (Neuro): normal cognition Extrem: General: Yes full ROM, Yes no pedal edema and Yes no calf tenderness Psych: Mental Status: mental status grossly normal Affect: normal affect Thought process: Normal thought process present Course Course Course Narrative: This is an RME performed by Tiffanie Saab CNP: Additional HPI, ROS, PE not included below will be deferred to primary provider. patient is a 73-year-old female who presents emergency department for evaluation of shortness of breath over the past 8 days without improvement. History of asthma, does not have any inhaler or nebulizer to utilize. Having cough associated productive cough with white phlegm. left-sided sore throat. Pain and chest during cough. inspiratory and expiratory wheezing of the upper airways, lung sounds clear at the bases plan: Viral serologies, CXR Medications Administered Discontinued Medications Generic Name Dose Route Start Last Admin Trade Name Freq PRN Reason Stop Dose Admin Albuterol Sulfate 5 mg/ 0 mg 10/01/24 16:29 10/01/24 16:32 Albuterol/Ipratropium 3 ml INHALE 10/01/24 16:30 3 each ONCE ONE Administration Prednisone 60 mg 10/01/24 16:48 10/01/24 16:53 Prednisone 20 Mg Tablet PO 10/01/24 16:49 60 mg ONCE ONE Administration Medical Decision Making Medical Decision Making MDM Narrative: Patient is a 73-year-old female with history of HTN, osteoporosis, HLD, asthma presenting with complaint of cough and shortness of breath for the past 8 days. On exam patient is awake, A+Ox3, VS WNL, afebrile, normal neurological exam without focal deficits, physical exam findings as above. Given reported symptoms and physical exam findings, initial differential includes but is not limited to asthma exacerbation, viral illness, bronchitis, pneumonia. Viral serology negative. X-ray chest notable for no evidence of pneumonia. My interpretation is in agreement with the radiologist's interpretation. Upon return to room to re-evalute patient, patient not in room. Patient left without completing treatment, did not notify any staff. Differential Diagnosis Differential Diagnoses: The differential diagnosis associated with the presentation includes As per [facility] Lab Data [facility] Lab Attestation statement: I reviewed the patient's lab results. As per [facility] Labs: Lab Results 10/01/24 Range/Units 13:32 Influenza Type A (PCR) NEGATIVE (Negative) Influenza Type B (PCR) NEGATIVE (Negative) RSV RNA Qual (PCR) NEGATIVE (Negative) SARS-CoV-2 RNA (RT-PCR) NEGATIVE (Negative) S. pyogenes GrpA VAISHALI Negative (Negative) Independent Interpretation I performed an independent interpretation of an: Plain X-Ray Interpretation: No evidence of pneumonia on chest x-ray. Radiology Impression Discussion of test interpretation with radiology: I have reviewed the radiologist's reading. Radiologist Impression: 2 view chest x-ray Comparison: CR/SR - XR CHEST 2V - 11/28/23 08:23 EDT Findings: No consolidation or effusion. Heart size is normal. No acute fracture. IMPRESSION: 1. No acute findings. External Record Review External record reviewed: Inpatient record, Office record and Outpatient record Discharge Plan Discharge Clinical Impression: Asthma exacerbation Patient Disposition: Left W/O Completing Treatment Prescriptions: No Action acetaminophen [Tylenol 8 Hour] 650 mg tablet extended release 650 mg PO Q8H PRN (Reason: pain) Qty: 20 0RF atorvastatin 10 mg tablet 10 mg PO BEDTIME Qty: 90 8RF lisinopril 5 mg tablet 5 mg PO DAILY Qty: 90 8RF diphenhydramine HCl [Benadryl] 25 mg capsule 25 mg PO TID PRN (Reason: allergic reaction) Qty: 20 0RF loratadine 10 mg tablet 10 mg PO DAILY PRN (Reason: allergic symptoms) Qty: 30 0RF sulfacetamide sodium 10 % drops 1 drp ophthalmic (eye) Q4H 5 Days Qty: 15 0RF benzonatate 200 mg capsule 200 mg PO TID PRN (Reason: cough) Qty: 20 0RF tramadol 50 mg tablet 50 mg PO Q8H Qty: 20 0RF albuterol sulfate [ProAir HFA] 90 mcg/actuation HFA aerosol inhaler 2 puff PO Q6H PRN (Reason: bronchospasm) Qty: 18 8RF naproxen 500 mg tablet 500 mg PO BID PRN (Reason: pain) Qty: 20 0RF Print Language: Burmese
--- NOTE | 2024-10-01 13:23 | ECG_ITS ---
Test Reason : CHEST PAIN Blood Pressure : */* mmHG Vent. Rate : 89 BPM Atrial Rate : 89 BPM P-R Int : 130 ms QRS Dur : 70 ms QT Int : 342 ms P-R-T Axes : 45 -36 26 degrees QTcB Int : 416 ms Normal sinus rhythm Left axis deviation Abnormal ECG When compared with ECG of 03-May-2014 09:59, No significant change was found Referred By: Alysha Saab Electronically Signed By: LI BOWERS MD
[2024-10-01 14:14] LABS: IDNOW Serial# 58CA691E; Strep A Nucleic Acid Negative (Negative)
[2024-10-01 14:35] LABS: Influenza A PCR NEGATIVE (Negative); Influenza B PCR NEGATIVE (Negative); Resp Syncy Virus RNA Qual PCR NEGATIVE (Negative); SARS COV2 PCR INHOUSE NEGATIVE (Negative)
[2024-10-01] MEDS: Albuterol Sulfate 5 MG, Albuterol/Iprat 2.5/0.5MG 3 ML 3 ML INHALE (16:32)
[2024-10-01 16:41] VITALS: PULSE 67; RESP 20; O2SAT 94
[2024-10-01] MEDS: predniSONE 20 MG TABLET 60 MG PO (16:53)
== END 2024-10-01 17:41 | disposition left against medical advice (07) ==
PROVIDERS: Nurse Practitioner Family; Emergency Provider Emergency Medicine; PCP Internal Medicine
DX: J45.901 Unspecified asthma with (acute) exacerbation (principal); R06.02 Shortness of breath; Z03.818 Encounter for observation for suspected exposure to other biological agents ruled out; I10 Essential (primary) hypertension; E78.5 Hyperlipidemia, unspecified; Z87.891 Personal history of nicotine dependence; Z79.02 Long term (current) use of antithrombotics/antiplatelets; Z79.899 Other long term (current) drug therapy
CPT/HCPCS: 0241U; 71046; 87651; 93005; 94640; 99284

== ENCOUNTER → 2024-10-01 13:23 | Outpatient (BNV) | payer MEDICARE, SELFPAY | PROVIDERS: PCP Internal Medicine; Visit Provider Radiology Diagnostic Radiology | DX: R07.9 Chest pain, unspecified (principal); R05.9 Cough, unspecified | CPT/HCPCS: 71046 ==

== ENCOUNTER → 2024-10-01 13:23 | Outpatient (BNV) | payer MEDICARE, SELFPAY | PROVIDERS: Emergency Provider Emergency Medicine; PCP Internal Medicine; Visit Provider Internal Medicine Cardiovascular Disease | DX: R94.31 Abnormal electrocardiogram [ECG] [EKG] (principal); R07.9 Chest pain, unspecified | CPT/HCPCS: 93010 ==

== ENCOUNTER 2024-10-25 07:41 | Emergency (ER) | payer MEDICARE, SELFPAY ==
--- NOTE | ~2024-10-25 | XR_ITS ---
EXAMINATION: XR LUMBOSACRAL SPINE CLINICAL INFORMATION: right sided lower back pain COMPARISON: October 15, 2017. TECHNIQUE: Three views of the lumbosacral spine. FINDINGS: Levoconvex rotoscoliosis apex at L3. Multilevel marginal osteophyte formation and endplate sclerosis decreased intervertebral disc height more conspicuous at L3-4. No acute cortical disruption. No gross malalignment. No lytic or blastic lesions. XR/XR lumbar spine 2-3V IMPRESSION: Multilevel thoracolumbar spondylosis and levoconvex rotoscoliosis apex at L3. Electronically signed by: Oleg Kirby MD 10/25/2024 08:42 AM EDT
[2024-10-25 07:48] VITALS: BP 136/74; PULSE 91; RESP 18; TEMP 36.3; O2SAT 96; BMI 24.0
[2024-10-25 08:26] LABS: MANUAL DIFF FLAG NO
[2024-10-25 08:28] LABS: Basophils Percent Auto 0.4 % (0-2); Eosinophils Absolute Auto 0.1 X10*3/uL (0.0-0.4); Eosinophils Percent Auto 1.2 % (0-4); Hemoglobin 14.5 g/dl (12.0-16.0); Imm Gran Abs Auto 0.01 X10*3/uL (0.00-0.03); Imm Gran Pct Auto 0.1 % (0.0-0.4); Lymphocytes Absolute Auto 1.2 X10*3/uL (1.2-4.9); Lymphocytes Percent Auto 16.9 % (20-40); Mean Corpuscular HGB Conc 33.7 g/dl (31.0-35.0); Mean Corpuscular Hemoglobin 31.7 pg (27.0-33.0); Mean Corpuscular Volume 94.1 fL (80.0-98.0); Mean Platelet Volume 9.9 fL (9.4-12.3); Monocytes Absolute Auto 0.4 X10*3/uL (0.1-1.2); Monocytes Percent Auto 6.3 % (2-11); Neutrophils Absolute Auto 5.2 x10*3/uL (2.0-8.3); Neutrophils Percent Auto 75.1 % (45-73); Platelet Count 281 X10*3/uL (160-400); Red Blood Count 4.57 X10*6/uL (4.20-5.50); Red Cell Distribution Width 12.2 % (11.0-16.0); White Blood Count 6.9 X10*3/uL (4.8-10.8)
--- OUTSIDE RECORDS SUMMARY | 2024-10-25 08:35 | XMS_ITS | Patient Health Record ---
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 Name Role Phone Raegan PELAEZ, Mike Primary Care Provider Erwin Pena Jr Unavailable [phone] Reason For Referral No Information Medications Medication [...] Problem Status W/U Status Risk Notes Problem [id number] Colon cancer screening (V76.51) Active confirmed Problem [id number] Personal history of colonic polyps (Z86.010) Active confirmed Plan Of Treatment Future Test Test Name Order Date COLONOSCOPY 05/31/2014 COLONOSCOPY 10/24/2015 Insurance Providers Payer Name Payer Address Payer Phone Subscriber Number Group Number Insured Name Patient Relationship to Insured Coverage Start Date Coverage End Date MEDICARE OF [place] [address] [place] [address] [id number] DARÍO PANDEY Self - patient is the insured [employer] ATTN CLAIMS [address] [place] [address] [id number] DARÍO PANDEY Self - patient is the insured Medical (General) History Medical History History ICD Code colonoscopy 01/24/2009 elevated Cholesterol hypertension asthma Denies NV,DM,CVA,renal disease Surgical History Surgery Date(Month/Year) lumpectomy, left breast lumpectomy, right breast
[2024-10-25 08:44] LABS: Anion Gap 12 (12-20); Blood Urea Nitrogen 12 mg/dL (9-16); Calcium 10.3 mg/dL (8.4-10.2); Carbon Dioxide 27 mmol/L (22-29); Chloride 106 mmol/L (96-108); Creatinine Clr Calc Pharmacy 60.9; Estimated Glomerular Filt Rate > 60; Glucose Random 143 mg/dL (60-115); Potassium 4.7 mmol/L (3.3-5.1); Sodium 140 mmol/L (135-145)
--- NOTE | 2024-10-25 09:09 | ED.BACK ---
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 Patient denies any recent trauma, injury, heavy lifting or falls. Patient reports that her pain worsens with positional changes, and her pain improves at rest. She has been taking Tylenol intermittently for her symptoms which has provided her with some relief. She denies any chest pain, shortness for breath, abdominal pain, nausea, vomiting or diarrhea. No urinary or bowel retention or incontinence. She does report urinary frequency. Denies saddle anesthesia. No other complaints or concerns at this time. MD elicited complaint: back pain Pertinent past history: prior back pain Onset (ago): day(s) Timing: constant Radiation: none Exacerbating factors: none Relieving factors: none Associated symptoms: denies other symptoms Related Data Previous Rx's ?Medication ?Instructions ?Recorded naproxen 500 mg tablet 500 mg PO BID PRN pain #20 tabs 10/16/22 diphenhydramine HCl 25 mg capsule 25 mg PO TID PRN allergic reaction 11/16/22 (Benadryl) #20 caps loratadine 10 mg tablet 10 mg PO DAILY PRN allergic 11/16/22 symptoms #30 tabs sulfacetamide sodium 10 % eye drops 1 drp ophthalmic (eye) Q4H 5 days 11/16/22 #15 mL tramadol 50 mg tablet 50 mg PO Q8H pain #20 tabs 05/22/23 acetaminophen 650 mg 650 mg PO Q8H PRN pain #20 tabs 06/17/23 tablet,extended release (Tylenol 8 Hour) albuterol sulfate 90 mcg/actuation 2 puff PO Q6H PRN bronchospasm #18 10/30/23 aerosol inhaler (ProAir HFA) grams benzonatate 200 mg capsule 200 mg PO TID PRN cough #20 caps 11/28/23 atorvastatin 10 mg tablet 10 mg PO BEDTIME #90 tabs 09/28/24 lisinopril 5 mg tablet 5 mg PO DAILY #90 tabs 09/28/24 acetaminophen 650 mg 650 mg PO Q8H #30 tabs 10/25/24 tablet,extended release (Tylenol 8 Hour) lidocaine 4 % topical patch 1 patch topical DAILY PRN pain #30 10/25/24 (AsperFlex (lidocaine)) ea Allergies Allergy/AdvReac Type Severity Reaction Status Date / Time oxycodone [From PERCOCET] Allergy Unknown ITCHY/RASH Verified 10/25/24 07:49 Review of Systems Review of Systems: Yes all other systems are reviewed and are negative Constitutional: Constitutional: Reports as per [facility] Past Medical History Medical History (Updated 10/25/24 @ 10:23 by SHAY Abel) Encounter for monitoring bisphosphonate therapy Osteoporosis Elevated parathyroid hormone Hypovitaminosis D Rib fractures Hyperlipidemia Osteoporosis Hypertension Surgical History H/O rectal polypectomy History of surgery History of breast surgery History of colonoscopy Family History Family History Father Colon cancer Mother CVD (cardiovascular disease) Brother Alcoholism Paternal Uncle Stomach cancer Sister Diabetes Kidney failure, acute Other Osteoporosis Social History Social History Household Members: None Housing: Apartment Alcohol intake: never Patient Tobacco Use Status: Former Tobacco user Tobacco use type: Cigarette e-Cigarette/Vaping Use: Never Used Second Hand Smoke Exposure: Yes service: No Current occupational status: employed Current occupation: [employer] Current occupational exposures/hazards: No Cognitive needs: No Hearing needs: No Vision needs: Yes Physical Exam Vital Signs: Vital Signs: Last Vital Signs Temp 98 F 10/25/24 10:57 Pulse 88 10/25/24 10:57 Resp 16 10/25/24 10:57 BP 134/80 10/25/24 10:57 Pulse Ox 96 10/25/24 10:57 O2 Del Method Room Air 10/25/24 10:57 BMI result Body Mass Index 24.0 Const: General: cooperative, comfortable and no acute distress Orientation/consciousness: patient oriented x3 Limitations: no limitations HEENT: Head: Yes normal to inspection, Yes normocephalic and Yes atraumatic Ears: hearing grossly normal bilaterally General nose exam: Normal external nose present Face and sinus: Yes normal facial exam Mouth: Normal oral and palatal mucosa present, oropharynx normal and moist mucous membranes Throat: Yes posterior oropharynx normal Eyes: General: appearance normal, both eyes and all related structures Eyelids: Yes eyelids normal Conjunctivae: conjunctivae normal Sclerae: sclerae normal Pupils: Equal, round and reactive pupils present EOM: EOMs intact bilaterally Neck: Neck: Yes normal visual inspection, Yes full ROM and Yes no lymphadenopathy Lymphatic: no lymphadenopathy noted Chest: Chest palpation & inspection: normal inspection of the chest Resp: Effort & Inspection: normal respiratory effort and able to speak in complete sentences Auscultation: clear to auscultation bilaterally, no crackles, no rales, no rhonchi and no wheezes Cardio: Rate: regular rate Rhythm: regular rhythm Heart sounds: S1 normal heart sound present and S2 normal heart sound present GI: Inspection: Yes normal to inspection Skin: General skin exam: no rashes or lesions noted Trauma: no lacerations or abrasions Wounds: no wounds Neuro: General: patient oriented x3 and moves all extremities Cranial nerves: Yes Equal, round and reactive pupils present Extrem: General: Yes normal to inspection Right upper extremity: normal to inspection Left upper extremity: normal to inspection Right lower extremity: normal to inspection Left lower extremity: normal to inspection Medications Administered Discontinued Medications Generic Name Dose Route Start Last Admin Trade Name Freq PRN Reason Stop Dose Admin Acetaminophen 650 mg 10/25/24 09:29 10/25/24 09:36 Acetaminophen 325 Mg Tablet PO 10/25/24 09:30 650 mg ONCE ONE Administration Lidocaine 1 patch 10/25/24 09:29 10/25/24 09:36 Lidocaine 4 % Patch Adh..Patch TRANSDERMA 10/25/24 09:30 1 patch ONCE ONE Administration Protocol Medical Decision Making Medical Decision Making MDM Narrative: This is a 73-year-old female who presents emergency department with concerns for back pain which started on Thursday. 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 On arrival, vital signs within normal limits. She is speaking full sentences under no acute distress. She was ambulatory. She has tenderness palpation along the right lower paraspinous muscles. DTRs are 2+. Distal sensation circulation intact. This patient presents with back pain most consistent with lumbar strain. Differential diagnoses includes lumbago versus musculoskeletal spasm / strain versus sciatica. No back pain red flags on history or physical. Presentation not consistent with malignancy (lack of history of malignancy, lack of B symptoms), fracture (no trauma, no bony tenderness to palpation), cauda equina syndrome (no bowel or urinary incontinence/retention, no saddle anesthesia, no distal weakness), renal colic, pyelonephritis (afebrile, no CVAT, no urinary symptoms). X-rays were obtained which was reviewed as multilevel thoracolumbar spondylosis and level convex rotoscoliosis apex at L3. 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 Labs were performed prior to my assessment, she has no leukocytosis, stable H&H. Chemistry with no significant electrolyte derangement. She does have elevated calcium at 10.3. Advised to follow-up with her PCP regarding this finding. Urine does not appear to be infected. Patient given lidocaine patch, and Tylenol. This gave her some relief. No other complaints or concerns at this time. Differential Diagnosis Differential Diagnoses: The differential diagnosis associated with the presentation includes See above Lab Data [facility] Lab Attestation statement: I reviewed the patient's lab results. See [facility] 10/25/24 08:23 10/25/24 08:23 Labs: Lab Results 10/25/24 10/25/24 Range/Units 08:23 09:43 WBC 6.9 (4.8-10.8) X10*3/uL RBC 4.57 (4.20-5.50) X10*6/uL Hgb 14.5 (12.0-16.0) g/dl Hct 43.0 (37.0-47.0) % MCV 94.1 (80.0-98.0) fL MCH 31.7 (27.0-33.0) pg MCHC 33.7 (31.0-35.0) g/dl RDW 12.2 (11.0-16.0) % Plt Count 281 (160-400) X10*3/uL MPV 9.9 (9.4-12.3) fL Immature Gran % (Auto) 0.1 (0.0-0.4) % Neut % (Auto) 75.1 H (45-73) % Lymph % (Auto) 16.9 L (20-40) % Wilson % (Auto) 6.3 (2-11) % Eos % (Auto) 1.2 (0-4) % Baso % (Auto) 0.4 (0-2) % Lymph # (Auto) 1.2 (1.2-4.9) X10*3/uL Wilson # (Auto) 0.4 (0.1-1.2) X10*3/uL Eos # (Auto) 0.1 (0.0-0.4) X10*3/uL Baso # (Auto) 0.0 (0.0-0.2) X10*3/uL Abs Immat Gran (auto) 0.01 (0.00-0.03) X10*3/uL Absolute Neuts (auto) 5.2 (2.0-8.3) x10*3/uL Absolute Nucleated RBC 0.000 (0.0-0.012) X10*3/uL Nucleated RBC % (auto) 0.0 (0.0-0.2) /100WBC Sodium 140 (135-145) mmol/L Potassium 4.7 (3.3-5.1) mmol/L Chloride 106 (96-108) mmol/L Carbon Dioxide 27 (22-29) mmol/L Anion Gap 12 (12-20) BUN 12 (9-16) mg/dL Creatinine 0.70 (0.5-1.4) mg/dL Estim Creat Clear Calc 60.9 Estimated GFR > 60 Random Glucose 143 H (60-115) mg/dL Calcium 10.3 H D (8.4-10.2) mg/dL Urine Color Yellow Urine Appearance Clear Urine pH 7.5 (5.0-9.0) Ur Specific [place] 1.015 (1.005-1.025) Urine Protein Negative (Neg-Trace) mg/dL Urine Glucose (UA) Negative (Negative) mg/dL Urine Ketones Negative (Negative) mg/dL Urine Blood Negative (Negative) Urine Nitrite Negative (Negative) Ur Leukocyte Esterase Negative (Negative) Radiology Impression Discussion of test interpretation with radiology: I have reviewed the radiologist's reading. Radiologist Impression: [place] [id number] XRay Report Signed Patient: Chandni Luther MR#: [id number] : 1950 Acct:[id number] Age/Sex: 73 / F ADM Date: 10/25/24 Loc: HO.ED Attending Dr: Ordering Physician: Generic ED Physician Date of Service: 10/25/24 Procedure(s): XR lumbar spine 2-3V Accession Number(s): [id number] cc: Generic ED Physician; Josee Garcia MD~ EXAMINATION: XR LUMBOSACRAL SPINE CLINICAL INFORMATION: right sided lower back pain COMPARISON: October 15, 2017. TECHNIQUE: Three views of the lumbosacral spine. FINDINGS: Levoconvex rotoscoliosis apex at L3. Multilevel marginal osteophyte formation and endplate sclerosis decreased intervertebral disc height more conspicuous at L3-4. No acute cortical disruption. No gross malalignment. No lytic or blastic lesions. XR/XR lumbar spine 2-3V IMPRESSION: Multilevel thoracolumbar spondylosis and levoconvex rotoscoliosis apex at L3. Electronically signed by: Oleg Kirby MD 10/25/2024 08:42 AM EDT RP Dictated By: Oleg Barrett MD Discharge Plan Discharge Clinical Impression: Back strain, Hypercalcemia Patient Disposition: Home, Self-Care Instructions: Muscle Strain (ED), Acute Low Back Pain (ED), Back Pain (ED) Additional Instructions: You were seen in the emergency department due to back pain. Your x-ray of your spine shows Multilevel thoracolumbar spondylosis and levoconvex rotoscoliosis apex at L3. Please follow-up with your primary care physician regarding this finding. Your urine does not appear to be infected. Please continue taking Tylenol as needed for pain. Lidocaine patches can also help with your pain. Gentle stretching, massage, heat or ice can also help. You also had elevated calcium levels, you have a history of this, please follow-up with your primary care physician regarding this finding. If any new or worsening symptoms occur including but not limited to severe chest pain, shortness of breath, numbness or tingling into your groin, loss of bladder or bowel control, please seek emergent care. Prescriptions: New acetaminophen [Tylenol 8 Hour] 650 mg tablet extended release 650 mg PO Q8H Qty: 30 0RF lidocaine [AsperFlex (lidocaine)] 4 % adhesive patch,medicated 1 patch topical DAILY PRN (Reason: pain) Qty: 30 0RF No Action acetaminophen [Tylenol 8 Hour] 650 mg tablet extended release 650 mg PO Q8H PRN (Reason: pain) Qty: 20 0RF atorvastatin 10 mg tablet 10 mg PO BEDTIME Qty: 90 8RF lisinopril 5 mg tablet 5 mg PO DAILY Qty: 90 8RF diphenhydramine HCl [Benadryl] 25 mg capsule 25 mg PO TID PRN (Reason: allergic reaction) Qty: 20 0RF loratadine 10 mg tablet 10 mg PO DAILY PRN (Reason: allergic symptoms) Qty: 30 0RF sulfacetamide sodium 10 % drops 1 drp ophthalmic (eye) Q4H 5 Days Qty: 15 0RF benzonatate 200 mg capsule 200 mg PO TID PRN (Reason: cough) Qty: 20 0RF tramadol 50 mg tablet 50 mg PO Q8H Qty: 20 0RF albuterol sulfate [ProAir HFA] 90 mcg/actuation HFA aerosol inhaler 2 puff PO Q6H PRN (Reason: bronchospasm) Qty: 18 8RF naproxen 500 mg tablet 500 mg PO BID PRN (Reason: pain) Qty: 20 0RF Stand Alone Forms: Work/School Release Interventions: ED Discharge Assessment Last Done: 10/25/24 10:57 Discharge Date/Time: 10/25/24 10:58 Print Language: Azeri
[2024-10-25] MEDS: Acetaminophen 325 MG TABLET 650 MG PO (09:36)
[2024-10-25] MEDS: Lidocaine 4 % Patch ADH..PATCH 1 PATCH TRANSDERMA (09:36)
[2024-10-25 09:55] LABS: Appearance Urine Clear; Color Urine Yellow; Glucose Urine UA Negative (Negative); Leukocyte Esterase Urine Negative (Negative); Nitrite Urine Negative (Negative); PH 7.5 (5.0-9.0); Specific Gravity - Urine 1.015 (1.005-1.025); Urine Blood Negative (Negative); Urine Ketones Negative (Negative); Urine Protein Negative (Neg-Trace)
[2024-10-25 10:43] VITALS: BP 134/80; PULSE 88; RESP 16; TEMP 36.6; O2SAT 96
[2024-10-25 10:57] VITALS: BP 134/80; PULSE 88; RESP 16; TEMP 36.6; O2SAT 96
== END 2024-10-25 10:58 | disposition home or self-care (01) ==
PROVIDERS: Emergency Provider Emergency Medicine; PCP Internal Medicine
DX: S39.012A Strain of muscle, fascia and tendon of lower back, initial encounter (principal); E83.52 Hypercalcemia; I10 Essential (primary) hypertension; E78.5 Hyperlipidemia, unspecified; X58.XXXA Exposure to other specified factors, initial encounter; Y93.9 Activity, unspecified; Y92.9 Unspecified place or not applicable; Y99.9 Unspecified external cause status
CPT/HCPCS: 36415; 72100; 80048; 81003; 85025; 99283

== ENCOUNTER → 2024-10-25 08:30 | Outpatient (BNV) | payer MEDICARE, SELFPAY | PROVIDERS: PCP Internal Medicine; Visit Provider Radiology Diagnostic Radiology | DX: M47.895 Other spondylosis, thoracolumbar region (principal); M41.9 Scoliosis, unspecified | CPT/HCPCS: 72100 ==

== ENCOUNTER 2024-12-21 12:18 | Outpatient (AMB) | payer MEDICARE, SELFPAY ==
--- NOTE | 2024-12-21 12:41 | MHC.PC.OV ---
Vital Signs 12/21/24 12:43 Height 5 ft 3 in Weight 136 lb BMI 24.1 BP 128/84 Blood Pressure Location Lt brachial Position Sitting Intake Visit Reasons: MATEUS from Dr. Carlin/ follow up Chef'S Assistant Required: No Accompanied by: Self / Same As Patient Allergies oxycodone [From PERCOCET] Allergy (Unknown, Verified 12/21/24 12:54) ITCHY/RASH Medication List - Last Reconciled 12/21/24 by Josee Buckley MD albuterol sulfate 90 mcg/actuation (ProAir HFA) 2 puffs PO Q6H PRN atorvastatin 10 mg PO BEDTIME lisinopril 5 mg PO DAILY Tobacco use date assessed: 09/20/24 Fall risk assessment: No Falls in past year Last assessed Fall Risk: 12/21/24 Dental Screening Dental Screen Date: 09/20/24 HPI HPI Comments History of Present Illness Details The patient is a 74-year-old female presenting with management of chronic conditions and preventative care. Diabetes mellitus was identified with an A1c of 7.2, indicating poor glycemic control over the past three months. The patient has a family history of diabetes, which may contribute to her condition. Hypertension is well-controlled with current medication, as evidenced by normal blood pressure readings. The patient is on atorvastatin for hyperlipidemia management. Asthma has been persistent for three months, requiring frequent use of an inhaler, which has been refilled multiple times. Osteoporosis was diagnosed following a bone density scan in 2023, with the next scan scheduled for 2025. The patient has not been on any specific treatment for osteoporosis but is considering endocrinology consultation for potential medication. The patient experienced a rib fracture following a fall, which was confirmed by imaging in September. Preventative care includes the need for a pneumonia vaccination, which has not yet been administered. [facility] Medical History (Updated 12/21/24 @ 13:24 by Josee Buckley MD) Encounter for monitoring bisphosphonate therapy Osteoporosis Elevated parathyroid hormone Hypovitaminosis D Rib fractures Hyperlipidemia Osteoporosis Hypertension Surgical History H/O rectal polypectomy History of surgery History of breast surgery History of colonoscopy Family History Father Colon cancer Mother CVD (cardiovascular disease) Brother Alcoholism Paternal Uncle Stomach cancer Sister Diabetes Kidney failure, acute Other Osteoporosis Social History Household Members: None Housing: Apartment Alcohol intake: never Patient Tobacco Use Status: Former Tobacco user Tobacco use type: Cigarette e-Cigarette/Vaping Use: Never Used Second Hand Smoke Exposure: Yes service: No Current occupational status: employed Current occupation: long term Current occupational exposures/hazards: No Cognitive needs: No Hearing needs: No Vision needs: Yes Questionnaire PHQ-9 Over the last 2 weeks, how often have you been bothered by any of the following problems? 1. Little interest or pleasure in doing things: not at all 2. Feeling down, depressed, or hopeless: several days 3. Trouble falling or staying asleep, or sleeping too much: not at all 4. Feeling tired or having little energy: several days 5. Poor appetite or overeating: not at all 6. Feeling bad about yourself - or that you are a failure or have let yourself or your family down: not at all 7. Trouble concentrating on things, such as reading the newspaper or watching television: not at all 8. Moving or speaking so slowly that other people could have noticed. Or the opposite - being so fidgety or restless that you have been moving around a lot more than usual: not at all 9. Thoughts that you would be better off or of hurting yourself in some way: not at all Total score: 2 Depression Screening Interpretation: Negative Depression Screening Done: Yes 68735 - PHQ-9 Billing: Yes Source: Developed by Drs. Shaun Law, Julissa Sellers, Danny Lopez and colleagues, with an educational manisha from [employer]. Thrive Questionnaire Date Thrive assessed: 09/20/24 I am a: Patient What is your living situation today?: I have a steady place to live Within the past 12 months, did the food you bought not last and you didn't have the money to get more?: Never true Within the past 12 months, did you worry whether your food would run out before you got money to buy more?: Never true Do you have trouble paying for medicines?: No Do you have trouble getting transportation to medical appointments?: No Do you have trouble paying your heating and electricity bill?: No Do you have trouble taking care of your child, family member or friend?: No Do you have trouble with day-to-day activities such as bathing, preparing meals, shopping, managing finances, etc.?: No Are you currently unemployed and looking for a job?: No Are you interested in more education?: Yes Please select the resources that you would like help with: None Currently or been in a relationship where the following occur: No concerns reported THRIVE Score: 0 AUDIT C Alcohol Use Questionnaire (AUDIT-C) 1. How often do you have a drink containing alcohol?: Never Total Score: 0 NUHA-7 AMB Questionnaire NUHA-7 Date NUHA - 7 assessed: 09/20/24 Feeling nervous, anxious, or on edge: 1 = Several days Not being able to stop or control worryin = Not at all Worrying too much about different things: 1 = Several days Trouble relaxin = Not at all Being so restless that it is hard to sit still: 0 = Not at all Becoming easily annoyed or irritable: 0 = Not at all Feeling afraid as if something awful might happen: 1 = Several days Total NUHA-7 score (0-4 normal; 5-9 mild; 10-14 moderate; 15-21 severe): 3 Source: Developed by Drs. Shaun Law, Julissa Sellers, Danny Lopez and colleagues, with an educational manisha from [employer]. NUHA-7 Assessment Billing NUHA-7 Assessment Tool: NUHA-7 Assessment 49544 Review of Systems Const All systems reviewed & are unremarkable except as noted in HPI and below Card Denies chest pain at rest, Denies chest pain with activity, Denies edema, Denies irregular heart rhythm, Denies claudication, Denies dyspnea, Denies dyspnea on exertion, Denies orthopnea, Denies paroxysmal nocturnal dyspnea and Denies slow heart rate Resp Denies cough, Denies dyspnea and Denies dyspnea on exertion GI Denies abdominal pain, Denies change in bowel habits, Denies excessive flatus, Denies nausea and Denies vomiting Denies urinary incontinence, Denies urinary hesitancy and Denies urinary urgency Musc Denies abnormal gait, Denies atrophy, Denies deformity and Denies limited range of motion Skin/Breast Denies bleeding lesions, Denies changing lesions and Denies rash Neuro Denies abnormal gait and Denies lack of coordination Physical exam (Primary Care) Vital Signs: Last Vital Signs BP 128/84 12/21/24 12:43 BMI result Body Mass Index 24.1 Tobacco/Smoking Status: Tobacco use Status Tobacco use date assessed 09/20/24 12/21/24 12:42 Patient Tobacco Use Status Former Tobacco user 12/21/24 12:42 Tobacco use type Cigarette 12/21/24 12:42 e-Cigarette/Vaping Use Never Used 12/21/24 12:42 PHQ-9: PHQ-9 Score PHQ-9: Total score 2 12/21/24 13:16 Depression Screening Interpretation: Negative Thrive Assessment: Date of Thrive Assessment Date Thrive assessed 09/20/24 12/21/24 12:42 Currently or been in a relationship where the following occur: No concerns reported Resp Effort & Inspection: normal respiratory effort Auscultation: clear to auscultation bilaterally Cardio Jugular venous distension: no JVD Rate: regular rate Rhythm: regular rhythm Heart sounds: S1 normal heart sound present and S2 normal heart sound present Extrem General: Yes full ROM Results AMB Hemoglobin A1c AMB Hemoglobin A1c 7.2 % Last Edit by FERNANDO Dumont on 12/21/24 13:18 Immunizations pneumoc 20-liane conj-dip cr(PF) 0.5 mL IM syringe Performing Provider: Josee Buckley MD [facility] Administered by: FERNANDO Dumont on 12/21/24 13:16 Dose Route Admin Location Dispensed Lot Number Expiration Date [facility] Workforce Staffing Advisor 0.5 mL IM Left Deltoid 0.5 mL [id number] 09/10/25 PROSimity/27 Perry VIS Given Date VIS Provided VIS Publication Date 12/21/24 Single Vaccine 22 Eligibility Eligibility Date Funding Source Not [facility] Eligible 12/21/24 Private Results Reviewed Results Reviewed: Laboratory Last Values Hgb A1c (Clinic) 7.2 % (4.0-6.0) H 12/21/24 12:56 Coding Level of Care Code Est Pt Level 4 (82773) Complex EM visit Add On G2211 Diagnoses Diabetes mellitus with hyperglycemia, without long-term current use of insulin E11.65 Age-related osteoporosis without current pathological fracture M81.0 Osteoporosis type: age-related Presence of current pathological fracture: without current pathological fracture Essential hypertension I10 Hyperlipidemia LDL goal <70 E78.5 Additional Codes NUHA-7 Assessment Billing - NUHA-7 Assessment Tool: NUHA-7 Assessment 41524 ([id number]) PHQ-9 - 81247 - PHQ-9 Billing: Yes ([id number]) Time Spent (min) 23 Assessment & Plan Assessment & Plan (1) Diabetes mellitus with hyperglycemia, without long-term current use of insulin: Code(s): E11.65 - Type 2 diabetes mellitus with hyperglycemia Category: Medical (2) Osteoporosis: Code(s): M81.0 - Age-related osteoporosis without current pathological fracture Category: Medical Qualifiers: Osteoporosis type: age-related Presence of current pathological fracture: without current pathological fracture Qualified Code(s): M81.0 - Age-related osteoporosis without current pathological fracture (3) Essential hypertension: Code(s): I10 - Essential (primary) hypertension Category: Medical (4) Hyperlipidemia LDL goal <70: Code(s): E78.5 - Hyperlipidemia, unspecified Category: Medical Plan The management plan includes addressing the patient's diabetes mellitus by monitoring blood glucose levels and adjusting medications as necessary. Hypertension and hyperlipidemia will continue to be managed with current medications, which have shown effectiveness. Asthma management involves ensuring the patient has access to inhalers and monitoring symptoms closely. Osteoporosis requires further evaluation by an spinning mule tender to determine the need for medication. Preventative care measures include administering the pneumonia vaccine and scheduling a colonoscopy. Patient was informed and verbally consented to the use of an ambient scribe for clinic note documentation during this visit. During the consultation, I discussed the importance of managing diabetes through regular monitoring and medication adherence. We reviewed the patient's current treatment for hypertension and hyperlipidemia, which are well-controlled. I emphasized the need for consistent asthma management and the potential benefits of consulting an spinning mule tender for osteoporosis treatment. We also discussed the necessity of receiving the pneumonia vaccine and scheduling a colonoscopy for comprehensive preventative care. Orders: Orders AMB Hemoglobin A1c Today R73.01 - Impaired fasting glucose Lipid Panel Today E11.65 - Type 2 diabetes mellitus with hyperglycemia, E78.5 - Hyperlipidemia, unspecified Pneumococcal 20 Immunization Today Z23 - Encounter for immunization Comprehensive [place]. Panel Fast Today E11.65 - Type 2 diabetes mellitus with hyperglycemia Microalbumin, Random (w Creat) Today E11.65 - Type 2 diabetes mellitus with hyperglycemia, R80.9 - Proteinuria, unspecified Vitamin D 25-OH Total Today E55.9 - Vitamin D deficiency, unspecified Medications: New metformin 500 mg PO BID 90 days 180 tabs 1RF E11.65 - Type 2 diabetes mellitus with hyperglycemia blood sugar diagnostic (FreeStyle Lite Strips) Use 1 test strip once a day 100 ea 2RF E11.65 - Type 2 diabetes mellitus with hyperglycemia lancets (FreeStyle Lancets) Use 1 lancet once a day 100 ea 1RF E11.65 - Type 2 diabetes mellitus with hyperglycemia blood-glucose meter (FreeStyle Lite Meter kit) As directed 1 ea 0RF E11.65 - Type 2 diabetes mellitus with hyperglycemia Changed From albuterol sulfate 90 mcg/actuation (ProAir HFA) 2 puffs PO Q6H PRN 18 grams 8RF bronchospasm To albuterol sulfate 90 mcg/actuation 2 puffs PO Q6H PRN 18 grams 8RF bronchospasm Patient Instructions: - Monitor blood glucose levels regularly and take diabetes medication as prescribed. - Continue taking hypertension and cholesterol medications as directed. - Use inhalers as needed for asthma and report any changes in symptoms. - Schedule an appointment with an spinning mule tender for osteoporosis evaluation. - Receive the pneumonia vaccine and schedule a colonoscopy.
[2024-12-21 12:43] VITALS: BP 128/84; BMI 24.1
--- OUTSIDE RECORDS SUMMARY | 2024-12-21 13:51 | XMS_ITS | Patient Health Record ---
Author Organization [facility] Address [address] [place] [address] Care Team Providers Care Subassembly Supervisor Name Role Phone Raegan PELAEZ, Mike Primary [...] Problem Status W/U Status Risk Notes Problem [id number] Colon cancer screening (V76.51) Active confirmed Problem [id number] Personal history of colonic polyps (Z86.010) Active confirmed Plan Of Treatment Future Test Test Name Order Date COLONOSCOPY 05/31/2014 COLONOSCOPY 10/24/2015 Insurance Providers Payer Name Payer Address Payer Phone Subscriber Number Group Number Insured Name Patient Relationship to Insured Coverage Start Date Coverage End Date MEDICARE [place] [address] [place] [id number] [id number] DARÍO PANDEY Self - patient is the insured MEDEX ATTN CLAIMS [address] [place] [address] [id number] DARÍO PANDEY Self - patient is the insured Medical (General) History Medical History History ICD Code colonoscopy 01/24/2009 elevated Cholesterol hypertension asthma Denies [place],DM,CVA,renal disease Surgical History Surgery Date(Month/Year) lumpectomy, left breast lumpectomy, right breast
== END 2024-12-21 13:09 | disposition home or self-care (01) ==
LOC: HO.HMCH 12:19
PROVIDERS: PCP Internal Medicine; Visit Provider Internal Medicine
DX: E11.65 Type 2 diabetes mellitus with hyperglycemia (principal); M81.0 Age-related osteoporosis without current pathological fracture; I10 Essential (primary) hypertension; E78.5 Hyperlipidemia, unspecified; R73.01 Impaired fasting glucose; Z23 Encounter for immunization

== ENCOUNTER → 2024-12-21 12:18 | Outpatient (BNVA) | payer MEDICARE, SELFPAY | PROVIDERS: PCP Internal Medicine; Visit Provider Internal Medicine | DX: E11.65 Type 2 diabetes mellitus with hyperglycemia (principal); M81.0 Age-related osteoporosis without current pathological fracture; I10 Essential (primary) hypertension; J45.909 Unspecified asthma, uncomplicated; E78.5 Hyperlipidemia, unspecified; R80.9 Proteinuria, unspecified; E55.9 Vitamin D deficiency, unspecified; Z23 Encounter for immunization | CPT/HCPCS: 83036; 90471; 90677; 96127; 99212 ==

== ENCOUNTER 2025-01-16 11:00 | Outpatient (AMB) | payer MEDICARE, SELFPAY ==
--- NOTE | 2025-01-16 11:11 | A.OFFVIS_ITS ---
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 No complaints. Last Pap/HPV was negative in 2016, no history of abnormal Pap smear or last 25 years Last Mammogram was BI-RADS 1 in 09/06 Last Colonoscopy was in 2015, the recommendation was to repeat in 5 years Last DEXA scan was in 09/05 T-score was-3.8, the patient was referred to Rheumatology, is on Prolia infusion at [facility] Medical History Encounter for monitoring bisphosphonate therapy Osteoporosis Elevated parathyroid hormone Hypovitaminosis D Rib fractures Hyperlipidemia Osteoporosis Hypertension Surgical History H/O rectal polypectomy History of surgery History of breast surgery History of colonoscopy Family History Father Colon cancer Mother CVD (cardiovascular disease) Brother Alcoholism Paternal Uncle Stomach cancer Sister Diabetes Kidney failure, acute Other Osteoporosis Social History Household Members: None Housing: Apartment Alcohol intake: never Patient Tobacco Use Status: Former Tobacco user Tobacco use type: Cigarette e-Cigarette/Vaping Use: Never Used Second Hand Smoke Exposure: Yes service: No Current occupational status: employed 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 Current occupational exposures/hazards: No Cognitive needs: No Hearing needs: No Vision needs: Yes Female Reproductive History Menstrual Date of Mammogram: 08/14/24 Review of Systems Const All systems reviewed & are unremarkable except as noted in HPI and below Card Reports as per HPI Resp Reports as per HPI GI Reports as per HPI and Reports no additional complaints Reports as per HPI Physical Exam Vital Signs: Last Vital Signs BP 122/70 01/16/25 11:35 BMI result Body Mass Index 24.1 Const General: cooperative, healthy appearing and comfortable Chest Chest palpation & inspection: normal inspection of the chest and normal palpation of entire chest wall Breast/axilla inspection: normal inspection of the breasts and normal inspection of the axillae Breast/axilla palpation: normal palpation of the breasts, normal palpation of the axillae and no axillary lymphadenopathy Resp Effort & Inspection: normal respiratory effort Auscultation: clear to auscultation bilaterally Percussion: percussion normal Cardio Palpation: normal PMI Rate: regular rate Rhythm: regular rhythm Heart sounds: no murmurs and no rubs Peripheral pulses: Peripheral pulses 2+ throughout GI Inspection: Yes normal to inspection Palpation (GI): Soft to palpation, nontender, no guarding, not rigid and No hepatosplenomegaly present Percussion: Yes normal to percussion Auscultation: normal bowel sounds Rectal Exam - Female: deferred General: Yes bladder normal to palpation External Female Exam: No lesion Speculum Exam - Vagina: normal appearance of the vagina, normal palpation, normal vaginal discharge and not erythematous Speculum Exam - Cervix: normal appearance of the cervix and normal palpation Bimanual exam- vagina & uterus: normal bimanual exam, normal palpation, uterine size normal, bladder normal to palpation, consistency normal and normal palpation Bimanual Exam- Adnexa, other: normal adnexae, no masses and no tenderness Assessment & Plan Assessment & Plan (1) Well woman exam: Code(s): Z01.419 - Encounter for gynecological examination (general) (routine) without abnormal findings Category: Medical Plan: Co testing not indicated since the patient 's age is above 65 with no history of abnormal Pap smears last 25 years, adequately screen for the last 10 years with no history of immunosuppression. Counseled the patient about the recommended dietary allowance of 1200 mg of Calcium & 800 IU of vitamin D. Instructions given the patient to schedule next screening Mammogram in 08/2025 Referred her for screening colonoscopy done. Recommended the patient to follow-up with Rheumatology and continue her Prolia infusion as per Rheumatology recommendation The patient was instructed to perform monthly self-breast exams and to schedule an annual exam in a year; All questions answered and the patient verbalized understanding. Orders: Referrals Gastroenterology Referral Z12.11 - Encounter for screening for malignant neoplasm of colon Coding Level of Care Code Est Pt Prev Care >65y(66912) Diagnoses Well woman exam Z01.419
[2025-01-16 11:35] VITALS: BP 122/70; BMI 24.1
--- OUTSIDE RECORDS SUMMARY | 2025-01-16 11:59 | XMS_ITS | Patient Health Record ---
Author Organization [facility] Address [address] [place] [address] Care Team Providers Care Donor Services Technician Name Role Phone Raegan PELAEZ, Mike Primary [...] Problem Status W/U Status Risk Notes Problem [id number] Colon cancer screening (V76.51) Active confirmed Problem [id number] Personal history of colonic polyps (Z86.010) Active confirmed Plan Of Treatment Future Test Test Name Order Date COLONOSCOPY 05/31/2014 COLONOSCOPY 10/24/2015 Insurance Providers Payer Name Payer Address Payer Phone Subscriber Number Group Number Insured Name Patient Relationship to Insured Coverage Start Date Coverage End Date MEDICARE OF [place] [address] [place] [address] [phone] [id number] DARÍO PANDEY Self - patient is the insured MEDEX ATTN CLAIMS [address] [place] [address] [phone] [id number] DAÍRO PANDEY Self - patient is the insured Medical (General) History Medical History History ICD Code colonoscopy 01/24/2009 elevated Cholesterol hypertension asthma Denies [place],DM,CVA,renal disease Surgical History Surgery Date(Month/Year) lumpectomy, left breast lumpectomy, right breast
== END 2025-01-16 11:57 | disposition home or self-care (01) ==
LOC: HO.HWS 11:00
PROVIDERS: PCP Internal Medicine; Visit Provider Obstetrics & Gynecology
DX: Z01.419 Encounter for gynecological examination (general) (routine) without abnormal findings (principal)
CPT/HCPCS: 99397; 99459

== ENCOUNTER → 2025-01-16 11:00 | Outpatient (BNVA) | payer MEDICARE, SELFPAY | PROVIDERS: PCP Internal Medicine; Visit Provider Obstetrics & Gynecology | DX: Z01.419 Encounter for gynecological examination (general) (routine) without abnormal findings (principal) | CPT/HCPCS: 99397 ==

== ENCOUNTER 2025-03-27 09:54 | Emergency (ER) | payer MEDICARE, OTHER, SELFPAY ==
--- NOTE | ~2025-03-27 | XR_ITS ---
EXAMINATION: XR KNEE, LEFT CLINICAL INFORMATION: pain after fall COMPARISON: February 07, 2023. TECHNIQUE: AP oblique and lateral views of the left knee. FINDINGS: No acute cortical disruption or malalignment. No lytic or blastic lesions. Mild asymmetric joint space narrowing involving medial compartment. No suprapatellar bursa joint effusion. Prepatellar soft tissue calcifications with the well-corticated examination. No vascular calcifications. No lytic or blastic lesions. Bubbly appearance of the proximal epiphysis left fibula. XR/XR knee LT 4V IMPRESSION: No acute fracture or dislocation. Mild osteoarthritis/osteoarthrosis, medial compartment. Electronically signed by: Oleg Kirby MD 03/27/2025 11:00 AM EDT
[2025-03-27 10:38] VITALS: BP 116/63; PULSE 100; RESP 16; TEMP 36.9; O2SAT 94; BMI 24.5
--- NOTE | 2025-03-27 10:39 | ED_ITS ---
HPI - General Adult General Chief complaint: Extremity Injury, Lower Stated complaint: fall Time Seen by Provider: 03/27/25 14:06 Source: patient Mode of arrival: ambulatory Limitations: language barrier History of Present Illness ED Provider: HPI narrative: Barbadian-speaking woman, presenting with left knee pain after falling at work on 03/24/2025, no head injury, reports that knee swollen, no fevers or chills, wrapped it up with with an Rahat wrap. Related Data Previous Rx's ?Medication ?Instructions ?Recorded atorvastatin 10 mg tablet 10 mg PO BEDTIME #90 tabs lisinopril 5 mg tablet 5 mg PO DAILY #90 tabs 09/28 albuterol sulfate 90 mcg/actuation 2 puff PO Q6H PRN b ronchospasm #18 12/21/24 aerosol inhaler grams blood sugar diagnostic (FreeStyle #100 ea 12/21/24 Lite Strips) blood-glucose meter (FreeStyle #1 ea 12/21/24 Lite Meter kit) lancets 28 gauge (FreeStyle #100 ea 12/21/24 Lancets) metformin 500 mg tablet 500 mg PO BID 90 days #180 t abs 12/21/24 naproxen 500 mg tablet 500 mg PO BID 5 days #10 tab s 03/27/25 Allergies Allergy/AdvReac Type Severity Reaction Status Date / Time oxycodone (From PERCOCET) Allergy Unknown ITCHY/RASH Verified 03/27/25 10:41 Review of Systems Constitutional: Constitutional: Reports as per HPI [facility] Past Medical History Medical History Encounter for monitoring bisphosphonate therapy Osteoporosis Elevated parathyroid hormone Hypovitaminosis D Rib fractures Hyperlipidemia Osteoporosis Hypertension Surgical History H/O rectal polypectomy History of surgery History of breast surgery History of colonoscopy Family History Family History Father Colon cancer Mother CVD (cardiovascular disease) Brother Alcoholism Paternal Uncle Stomach cancer Sister Diabetes Kidney failure, acute Other Osteoporosis Social History Social History Household Members: None Housing: Apartment Alcohol intake: never Patient Tobacco Use Status: Former Tobacco user Tobacco use type: Cigarette e-Cigarette/Vaping Use: Never Used Second Hand Smoke Exposure: Yes Advance Directives: No Advance Directives Information Provided: No service: No Current occupational status: employed Current occupation: [employer] Current occupational exposures/hazards: No Cognitive needs: No Hearing needs: No Vision needs: Yes Physical Exam ED Vital Signs: Vital Signs - 24 hr 03/27/25 10:38 03/27/25 14:14 Temperature 98.4 F 97.6 F Pulse Rate 100 80 Respiratory Rate 16 18 Blood Pressure 116/63 146/84 H Pulse Oximetry 94 96 Oxygen Delivery Method Room Air Room Air BMI result Body Mass Index 24.5 Const Other: Examination of left knee reveals some tenderness along the patella, no deformities, minimal effusion, proximal distal compartments are soft ligamentously stable knee Patient is ambulatory Alert and oriented x4, no facial head trauma noted Course Course Course Narrative: This is a rapid medical exam performed by Kylah Garcia NP: Additional HPI, ROS, PE not included below will be deferred to primary provider. Patient is a 74-year-old Barbadian speaking female presenting to the ED with complaint of left knee pain and swelling since she fell at work on Thursday. Denies head strike. Unable to visualize in triage due to tight clothing and RAHAT wrap. 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 Differential Diagnosis Differential Diagnoses: The differential diagnosis associated with the presentation includes (Fracture, sprain, strain, infection) Independent Interpretation I performed an independent interpretation of an: Plain X-Ray (No fractures i dentified) Radiology Impression Discussion of test interpretation with radiology: I have reviewed the radiologist's reading. Prescription Management I considered prescription management with: Pain Medication Discharge Plan Discharge Clinical Impression: Contusion of knee, left Qualifiers: Encounter type: initial encounter Qualified Code(s): S80.02XA - Contusion of left knee, initial encounter Patient Disposition: Home, Self-Care Instructions: Contusion in Adults (ED) Additional Instructions: Big bag of ice to the knee every day for 20 minutes Continue Naprosyn 500 mg twice a day Follow up with the PCP for additional pain control re-evaluation physical therapy in the additional work notes if required Prescriptions: New naproxen 500 mg tablet 500 mg PO BID 5 Days Qty: 10 0RF No Action atorvastatin 10 mg tablet 10 mg PO BEDTIME Qty: 90 8RF lisinopril 5 mg tablet 5 mg PO DAILY Qty: 90 8RF albuterol sulfate 90 mcg/actuation HFA aerosol inhaler 2 puff PO Q6H PRN (Reason: bronchospasm) Qty: 18 8RF metformin 500 mg tablet 500 mg PO BID 90 Days Qty: 180 1RF (DME) blood-glucose meter [FreeStyle Lite Meter] Kit See Rx Instructions .Route Qty: 1 0RF Rx Instructions: As directed (DME) FreeStyle Lite Strips Strip See Rx Instructions .Route Qty: 100 2RF Rx Instructions: Use 1 test strip once a day (DME) lancets [FreeStyle Lancets] 28 gauge misc See Rx Instructions .Route Qty: 100 1RF Rx Instructions: Use 1 lancet once a day Referrals: Josee Garcia MD [Primary Care Provider, Internal Medicine] - 1 week Clinical Impression: Contusion of knee, left Stand Alone Forms: Work/School Release Print Language: Barbadian
[2025-03-27 14:14] VITALS: BP 146/84; PULSE 80; RESP 18; TEMP 36.4; O2SAT 96
[2025-03-27 15:08] VITALS: BP 146/84; PULSE 80; RESP 18; TEMP 36.4; O2SAT 96
--- OUTSIDE RECORDS SUMMARY | 2025-03-27 19:29 | XMS_ITS | Patient Health Record ---
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 Name Role Phone Raegan PELAEZ, Mike Primary Care Provider Erwin Pena Jr Unavailable [phone] Reason For Referral No Information Medications Medication [...] Problem Status W/U Status Risk Notes Problem [id number] Colon cancer screening (V76.51) Active confirmed Problem [id number] Personal history of colonic polyps (Z86.010) Active confirmed Plan Of Treatment Future Test Test Name Order Date COLONOSCOPY 05/31/2014 COLONOSCOPY 10/24/2015 Insurance Providers Payer Name Payer Address Payer Phone Subscriber Number Group Number Insured Name Patient Relationship to Insured Coverage Start Date Coverage End Date MEDICARE OF [place] [address] [place] [address] [id number] DARÍO PANDEY Self - patient is the insured [employer] ATT[employer] CLAIMS [address] [place] [phone] [id number] DARÍO PANDEY Self - patient is the insured Medical (General) History Medical History History ICD Code colonoscopy 01/24/2009 elevated Cholesterol hypertension asthma Denies OH,DM,CVA,renal disease Surgical History Surgery Date(Month/Year) lumpectomy, left breast lumpectomy, right breast
== END 2025-03-27 15:09 | disposition home or self-care (01) ==
PROVIDERS: Emergency Provider Emergency Medicine; PCP Internal Medicine
DX: S80.02XA Contusion of left knee, initial encounter (principal); M81.0 Age-related osteoporosis without current pathological fracture; W19.XXXA Unspecified fall, initial encounter; Y93.89 Activity, other specified; Y92.89 Other specified places as the place of occurrence of the external cause; Y99.8 Other external cause status; Z79.899 Other long term (current) drug therapy
CPT/HCPCS: 73564; 96372; 99283; 99284; J1885

== ENCOUNTER → 2025-03-27 10:40 | Outpatient (BNV) | payer MEDICARE, SELFPAY | PROVIDERS: PCP Internal Medicine; Visit Provider Radiology Diagnostic Radiology | DX: M17.12 Unilateral primary osteoarthritis, left knee (principal) | CPT/HCPCS: 73564 ==

== ENCOUNTER 2025-04-20 07:15 | Outpatient (REF) | payer MEDICARE, SELFPAY ==
[2025-04-20 08:37] LABS: Alanine Aminotransferase 27 U/L (0-31); Albumin Level 4.4 g/dL (3.5-5.0); Alkaline Phosphatase 76 U/L (39-117); Anion Gap 9 (12-20); Aspartate Amino Transferase 30 U/L (5-31); Blood Urea Nitrogen 14 mg/dL (9-16); Calcium 9.6 mg/dL (8.4-10.2); Carbon Dioxide 29 mmol/L (22-29); Chloride 106 mmol/L (96-108); Cholesterol 144 mg/dL (<200); Estimated Glomerular Filt Rate > 60; HDL Cholesterol 29 mg/dL (>40); Potassium 4.4 mmol/L (3.3-5.1); Sodium 140 mmol/L (135-145); Total Protein 7.4 g/dL (6.5-8.0); Triglycerides 107 mg/dL (<150)
[2025-04-20 09:38] LABS: Microalbum/Creatinine Ratio Ur 12.3 ug/mg cr (<30)
== END 2025-04-20 07:16 | disposition home or self-care (01) ==
LOC: HO.LAB 07:15
PROVIDERS: PCP Internal Medicine; Visit Provider Internal Medicine
DX: E11.65 Type 2 diabetes mellitus with hyperglycemia (principal); R80.9 Proteinuria, unspecified; E78.5 Hyperlipidemia, unspecified
CPT/HCPCS: 36415; 80053; 80061; 82043; 82570

== ENCOUNTER 2025-05-03 10:05 | Outpatient (AMB) | payer MEDICARE, SELFPAY ==
--- NOTE | 2025-05-03 10:10 | MHC.PC.OV ---
Vital Signs 05/03/25 10:11 Height 5 ft 2 in Weight 141 lb BMI 25.8 BP 144/86 H Blood Pressure Location Lt brachial Position Standing Respiration 18 Pulse 106 H Pulse Source Pulse Oximeter Temp 97.3 F Temp Source Temporal Artery Scan Pulse Oximetry (%) 95 Oxygen Delivery Method Room Air Intake Visit Reasons: lipids Geodetic Survey Director Required: No Accompanied by: Self / Same As Patient Allergies oxycodone (From PERCOCET) Allergy (Unknown, Verified 05/03/25 10:22) ITCHY/RASH Medication List - Last Reconciled 05/03/25 by Josee Buckley MD albuterol sulfate 90 mcg/actuation 2 puffs PO Q6H PRN atorvastatin 10 mg PO BEDTIME blood sugar diagnostic (FreeStyle Lite Strips) Use 1 test strip once a day blood-glucose meter (FreeStyle Lite Meter kit) As directed lancets (FreeStyle Lancets) Use 1 lancet once a day lisinopril 5 mg PO DAILY metformin 500 mg PO BID 90 days naproxen 500 mg PO BID 5 days Tobacco use date assessed: 05/03/25 Fall risk assessment: 2 + Falls in past year Last assessed Fall Risk: 05/03/25 Dental Screening Dental Screen Date: 05/03/25 Did you have a dental visit in the last 12 months?: Yes Did you have a dental problem in the last 6 months where you did not have access to dental care?: No Was dental information given to patient?: Patient has dentist HPI HPI Comments History of Present Illness Details The patient is a 74-year-old female presenting with hypertension, hyperlipidemia, and diabetes mellitus management. Hypertension has been a concern, with the patient previously on lisinopril, which she has run out of and not taken recently. The dosage of lisinopril is being increased from 5 mg to 10 mg to better manage her blood pressure. Hyperlipidemia is being managed with atorvastatin, which the patient also ran out of. The atorvastatin dosage is being increased from 10 mg to 20 mg due to an LDL level of 94 mg/dL. Diabetes mellitus management includes daily medication, which the patient is reminded to adhere to, as her last glucose reading was 164 mg/dL. The patient is provided with a glucose monitoring device to assist in managing her condition. The patient has a known allergy to Percocet, which is noted in her medical history. The patient also reports osteoarthritis in her left knee, for which she takes Tylenol as needed for pain management. Preventative care includes receiving an influenza vaccination during this visit. [facility] Medical History Encounter for monitoring bisphosphonate therapy Osteoporosis Elevated parathyroid hormone Hypovitaminosis D Rib fractures Hyperlipidemia Osteoporosis Hypertension Surgical History H/O rectal polypectomy History of surgery History of breast surgery History of colonoscopy Family History Father Colon cancer Mother CVD (cardiovascular disease) Brother Alcoholism Paternal Uncle Stomach cancer Sister Diabetes Kidney failure, acute Other Osteoporosis Social History Household Members: None Housing: Apartment Alcohol intake: never Patient Tobacco Use Status: Former Tobacco user Tobacco use type: Cigarette e-Cigarette/Vaping Use: Never Used Second Hand Smoke Exposure: Yes service: No Current occupational status: employed 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 Current occupational exposures/hazards: No Cognitive needs: No Hearing needs: No Vision needs: Yes Questionnaire Thrive Questionnaire Date Thrive assessed: 12/21/24 I am a: Patient What is your living situation today?: I have a steady place to live Within the past 12 months, did the food you bought not last and you didn't have the money to get more?: Never true Within the past 12 months, did you worry whether your food would run out before you got money to buy more?: Never true Do you have trouble paying for medicines?: No Do you have trouble getting transportation to medical appointments?: No Do you have trouble paying your heating and electricity bill?: No Do you have trouble taking care of your child, family member or friend?: No Do you have trouble with day-to-day activities such as bathing, preparing meals, shopping, managing finances, etc.?: No Are you currently unemployed and looking for a job?: No Are you interested in more education?: Yes Please select the resources that you would like help with: None Currently or been in a relationship where the following occur: No concerns reported THRIVE Score: 0 AUDIT C Alcohol Use Questionnaire (AUDIT-C) 1. How often do you have a drink containing alcohol?: Never 3. How often do you have six or more drinks on one occasion?: Never Total Score: 0 NUHA-7 AMB Questionnaire NUHA-7 Date NUHA - 7 assessed: 09/20/24 Source: Developed by Drs. Shaun Law, Julissa Sellers, Danny Lopez and colleagues, with an educational manisha from [email or web address]. Review of Systems Const All systems reviewed & are unremarkable except as noted in HPI and below Card Denies chest pain at rest, Denies chest pain with activity, Denies edema, Denies irregular heart rhythm, Denies claudication, Denies dyspnea, Denies dyspnea on exertion, Denies orthopnea, Denies paroxysmal nocturnal dyspnea and Denies slow heart rate Resp Denies cough, Denies dyspnea and Denies dyspnea on exertion Physical exam (Primary Care) Vital Signs: Last Vital Signs Temp 97.3 F 05/03/25 10:11 Pulse 106 H 05/03/25 10:11 Resp 18 05/03/25 10:11 BP 144/86 H 05/03/25 10:11 Pulse Ox 95 05/03/25 10:11 Oxygen Delivery Method Room Air 05/03/25 10:11 BMI result Body Mass Index 25.8 Tobacco/Smoking Status: Tobacco use Status Tobacco use date assessed 05/03/25 05/03/25 10:14 Patient Tobacco Use Status Former Tobacco user 05/03/25 10:10 Tobacco use type Cigarette 05/03/25 10:10 e-Cigarette/Vaping Use Never Used 05/03/25 10:10 Thrive Assessment: Date of Thrive Assessment Date Thrive assessed 12/21/24 05/03/25 10:10 Currently or been in a relationship where the following occur: No concerns reported Resp Effort & Inspection: normal respiratory effort Auscultation: clear to auscultation bilaterally Cardio Jugular venous distension: no JVD Rate: regular rate Rhythm: regular rhythm Heart sounds: S1 normal heart sound present and S2 normal heart sound present Extrem General: Yes full ROM Office Procedures Flu Questionnaire Does the patient have a severe egg allergy?: No Does the patient have severe life threatening allergies?: No Does the patient have a fever or illness today?: No Has the patient ever had Guillain-[place] Syndrome?: No Has the patient ever had any past reaction to a flu shot?: No Results AMB Hemoglobin A1c AMB Hemoglobin A1c 8.3 % Last Edit by Sue Maurer MA on 05/03/25 10:33 Immunizations Fluarix [id number] (PF) 45 mcg (15 mcg x 3)/0.5 mL IM syringe Performing Provider: Josee Buckley MD Performing Location: [facility] Adult Primary [facility] Administered by: FERNANDO Deal on 05/03/25 10:45 Dose Route Admin Location Dispensed Lot Number Expiration Date NDC Faculty Research Assistant 0.5 mL IM Left Deltoid 0.5 mL [id number] 01/09/26 [id number] PPS VIS Given Date VIS Provided VIS Publication Date 05/03/25 Single Vaccine 24 Eligibility Eligibility Date Funding Source Not [facility] Eligible 05/03/25 Private Results Reviewed Results Reviewed: Laboratory Last Values Hgb A1c (Clinic) 8.3 % (4.0-6.0) H 05/03/25 10:32 Coding Level of Care Code Est Pt Level 4 (17580) Complex EM visit Add On G2211 Diagnoses Diabetes mellitus with hyperglycemia, without long-term current use of insulin E11.65 Essential hypertension I10 Hyperlipidemia LDL goal <70 E78.5 Osteoarthritis of left knee M17.12 Time Spent (min) 23 Assessment & Plan Assessment & Plan (1) Diabetes mellitus with hyperglycemia, without long-term current use of insulin: Code(s): E11.65 - Type 2 diabetes mellitus with hyperglycemia Category: Medical (2) Essential hypertension: Code(s): I10 - Essential (primary) hypertension Category: Medical (3) Hyperlipidemia LDL goal <70: Code(s): E78.5 - Hyperlipidemia, unspecified Category: Medical (4) Osteoarthritis of left knee: Code(s): M17.12 - Unilateral primary osteoarthritis, left knee Category: Medical Plan Plan 1. Essential (primary) hypertension I10 The patient's hypertension is currently managed with lisinopril, which will be increased from 5 mg to 10 mg due to recent non-adherence and the need for better blood pressure control. 2. Hyperlipidemia, unspecified E78.5 The patient's hyperlipidemia is managed with atorvastatin, which will be increased from 10 mg to 20 mg due to an LDL level of 94 mg/dL. 3. Type 2 diabetes mellitus without complications E11.9 HCC 19 The patient's diabetes management includes daily medication adherence and the use of a glucose monitoring device, with a recent glucose level of 164 mg/dL. 4. Unilateral primary osteoarthritis, left knee M17.12 The patient manages osteoarthritis pain in the left knee with Tylenol as needed. Orders: Orders AMB Hemoglobin A1c Today E11.65 - Type 2 diabetes mellitus with hyperglycemia Lipid Panel 4 Months E78.5 - Hyperlipidemia, unspecified Microalbumin, Random (w Creat) 4 Months R80.9 - Proteinuria, unspecified Vitamin B12 and Folate 4 Months E53.8 - Deficiency of other specified B group vitamins Influenza [id number] Immunization Today Z23 - Encounter for immunization Vitamin D 25-OH Total 4 Months E55.9 - Vitamin D deficiency, unspecified Comprehensive [place]. Panel Fast 4 Months E11.65 - Type 2 diabetes mellitus with hyperglycemia Medications: New lisinopril 10 mg PO DAILY 90 tabs 1RF 90 days atorvastatin (Lipitor) 20 mg PO BEDTIME 90 tabs 1RF 90 days Refilled blood sugar diagnostic (FreeStyle Lite Strips) Use 1 test strip once a day 100 ea 2RF E11.65 - Type 2 diabetes mellitus with hyperglycemia lancets (FreeStyle Lancets) Use 1 lancet once a day 100 ea 1RF E11.65 - Type 2 diabetes mellitus with hyperglycemia metformin 500 mg PO BID 180 tabs 1RF 90 days E11.65 - Type 2 diabetes mellitus with hyperglycemia blood-glucose meter (FreeStyle Lite Meter kit) As directed 1 ea 0RF E11.65 - Type 2 diabetes mellitus with hyperglycemia Discontinued lisinopril Discontinued Reason: Patient Completed Course 5 mg PO DAILY 90 tabs 8RF
[2025-05-03 10:11] VITALS: BP 144/86; PULSE 106; RESP 18; TEMP 36.3; O2SAT 95; BMI 25.8
== END 2025-05-03 10:50 | disposition home or self-care (01) ==
LOC: HO.HMCH 10:06
PROVIDERS: PCP Internal Medicine; Visit Provider Internal Medicine
DX: E11.65 Type 2 diabetes mellitus with hyperglycemia (principal); I10 Essential (primary) hypertension; E78.5 Hyperlipidemia, unspecified; M17.12 Unilateral primary osteoarthritis, left knee; Z23 Encounter for immunization

== ENCOUNTER → 2025-05-03 10:05 | Outpatient (BNVA) | payer MEDICARE, SELFPAY | PROVIDERS: PCP Internal Medicine; Visit Provider Internal Medicine | DX: I10 Essential (primary) hypertension (principal); E78.5 Hyperlipidemia, unspecified; M17.12 Unilateral primary osteoarthritis, left knee; E11.65 Type 2 diabetes mellitus with hyperglycemia; R80.9 Proteinuria, unspecified; E53.8 Deficiency of other specified B group vitamins; E55.9 Vitamin D deficiency, unspecified; Z23 Encounter for immunization | CPT/HCPCS: 83036; 90471; 90656; 99212 ==